=== PATIENT | female | born 1960 | race African-American/Black ===

== ENCOUNTER 2016-12-30 08:54 | Inpatient (IN) | payer BC ==
[2016-12-30 09:50] VITALS: BMI 34.8
--- NOTE | 2016-12-30 10:59 | HP ---
COWS - Scale Resting Pulse: 0= [place] 80 or Below Sweatin= Chills/Flushing Restless Observation: 1= Difficult to Sit Still Pupil Size: 0= Normal to Room Light Bone or Joint Aches: 1= Mild Discomfort Runny Nose/ Eye Tearin= Nasal Congestion GI Upset > 30mins: 2= Nausea/Diarrhea Tremor Observation: 1= Tremor [place], Not Seen Yawning Observation: 1= 1-2x During Session Anxiety or Irritability: 1=Feels Anxious/Irritable Goose Flesh Skin: 0=Smooth Skin COWS Score: 9 CIWA Score - CIWA Score Nausea/Vomitin-Mild Nausea/No Vomiting Muscle Tremors: 3 Anxiety: 4-Mod. Anxious/Guarded Agitation: 1-Slight > Activity Paroxysmal Sweats: 1-Minimal Palms Moist Orientation: 0-Oriented Tacttile Disturbances: 1-Very Mild Itch/Numbness Auditory Disturbances: 1-Very Mild Visual Disturbances: 1-Very Mild Sensitivity Headache: 2-Mild CIWA-Ar Total Score: 15 Admission ROS BHS - HPI Chief Complaint: I want to stop, I'm tired Allergies/Adverse Reactions: Allergies Allergy/AdvReac Type Severity Reaction Status Date / Time lactose Allergy Intermediate Nausea Verified 12/30/16 10:46 History of Present Illness: 56 yo woman here for detox from heroin, cocaine, etoh. Last detox 3 months ago at [facility]. Previously here in 2008. Exam Limitations: Clinical Condition - Ebola screening Have you traveled outside of the country in the last 21 days: No Have you had contact with anyone from an Ebola affected area: No Have you been sick,other than usual withdrawal symptoms: No Do you have a fever: No - Review of Systems Constitutional: Loss of Appetite, Malaise, Night Sweats, Changes in sleep, Weakness EENT: reports: Blurred Vision, Nose Congestion Respiratory: reports: No Symptoms reported Cardiac: reports: No Symptoms Reported GI: reports: Nausea, Poor Appetite, Indigestion, Abdominal cramping : reports: No Symptoms Reported Musculoskeletal: reports: Back Pain, Muscle Pain Integumentary: reports: No Symptoms Reported Neuro: reports: Headache Endocrine: reports: No Symptoms Reported Hematology: reports: No Symptoms Reported Psychiatric: reports: Judgement Intact, Mood/Affect Appropiate, Orientated x3, Anxious Other Systems: Reviewed and Negative Patient History - Patient Medical History Hx Anemia: No Hx Asthma: No Hx Chronic Obstructive Pulmonary Disease (COPD): No Hx Cancer: No Hx Cardiac Disorders: No Hx Hypertension: Yes (no meds) Hx Pacemaker: No HX Cerebrovascular Accident: No Hx Seizures: Yes (1997 ) Hx Diabetes: No Hx Gastrointestinal Disorders: No Hx Liver Disease: No Hx Genitourinary Disorders: No Hx Sexually Transmitted Disorders: No Hx Renal Disease (ESRD): No Hx Thyroid Disease: No Hx Human Immunodeficiency Virus (HIV): No Hx Hepatitis C: No Hx Depression: Yes (never hospitalized, no meds) Hx Suicide Attempt: No Hx Schizophrenia: No - Patient Surgical History Past Surgical History: No Hx Neurologic Surgery: No Hx Cataract Extraction: No Hx Cardiac Surgery: No Hx Lung Surgery: No Hx Breast Surgery: No Hx Breast Biopsy: No Hx Abdominal Surgery: No Hx Appendectomy: No Hx Cholecystectomy: No Hx Genitourinary Surgery: No Hx Section: Yes Hx Orthopedic Surgery: No Anesthesia Reaction: No - PPD History Previous Implant?: Yes Documented Results: Negative w/o proof Implanted On Prior R Admission?: No PPD to be Administered?: Yes - Reproductive History Patient is a Female of Child Bearing Age (11 -55 yrs old): No Patient : No - Smoking Cessation Smoking history: Current every day smoker Have you smoked in the past 12 months: Yes Aproximately how many cigarettes per day: 20 Cigars Per Day: 0 Hx Chewing Tobacco Use: No Initiated information on smoking cessation: Yes 'Breaking Loose' booklet given: 12/30/16 (give on floor) - Substance & Tx. History Hx Alcohol Use: Yes Hx Substance Use: Yes Substance Use Type: Alcohol, Cocaine, Heroin Hx Substance Use Treatment: Yes (detox, rehab, methadone in past) - Substances Abused Heroin Route: Inhalation Frequency: Daily Amount used: 6 BAGS Age of first use: 21 Date of Last Use: 12/30/16 Alcohol Route: Oral Frequency: Daily Amount used: 1 PINT VODKA Age of first use: 21 Date of Last Use: 12/30/16 Crack Route: Smoking Frequency: Daily Amount used: $200 Age of first use: 23 Date of Last Use: 12/30/16 Family Disease History - Family Disease History Family Disease History: Respiratory: Father ( - etoh, drugs), Other: Father, Mother (alive, no medical problems) Admission Physical Exam BHS - Vital Signs Vital Signs: Vital Signs - 24 hr 12/30/16 12/30/16 09:48 09:50 Temperature 97.4 F L 97.7 F Pulse Rate 67 67 Respiratory 20 20 Rate Blood Pressure 170/97 170/97 - Physical General Appearance: Yes: Nourished, Appropriately Dressed, Mild Distress, Anxious HEENTM: Yes: Hearing grossly Normal, Normocephalic, Normal Voice, Pharynx Normal , Nasal Congestion Respiratory: Yes: Normal Breath Sounds, No Respiratory Distress Neck: Yes: No masses,lesions,Nodules, Supple Breast: Yes: Breast Exam Deferred Cardiology: Yes: Regular Rhythm, Regular Rate Abdominal: Yes: Soft, Protuberent Genitourinary: Yes: Within Normal Limits Back: Yes: Normal Inspection Musculoskeletal: Yes: full range of Motion, Gait Steady, Back pain, Muscle Pain Extremities: Yes: Normal Inspection, Normal Range of Motion, Non-Tender Neurological: Yes: Fully Oriented, Alert, Motor Strength 5/5, Normal Mood/Affect , Normal Response Integumentary: Yes: Normal Color, Warm Lymphatic: Yes: Within Normal Limits - Diagnostic (1) Alcohol dependence with uncomplicated withdrawal Current Visit: Yes Status: Chronic (2) Opioid dependence, uncomplicated Current Visit: Yes Status: Chronic (3) Crack cocaine use Current Visit: Yes Status: Chronic (4) Nicotine dependence Current Visit: Yes Status: Chronic Qualifiers: Nicotine product type: cigarettes Substance use status: uncomplicated Qualified Code(s): F17.210 - Nicotine dependence, cigarettes, uncomplicated Cleared for Admission [facility] - Detox or Rehab [facility] Level of Care: Medically Managed Detox Regimen/Protocol: Methadone/Librium [facility] Breath Alcohol Content Breath Alcohol Content: 0 Urine Pregancy Test - Result Urine Test Results: Negative- NO Line Present Urine Drug Screen - Results Drug Screen Negative: No Urine Drug Screen Results: CHIN-Cocaine, OPI-Opiates, BZO-Benzodiazepines, OXY- Oxycodone
[2016-12-30] MEDS ORDERED: MAGNESIUM HYDROX 2400MG/30ML ORAL SUSPENSION 30 ML CUP PO PRN (11:03)
[2016-12-30] MEDS ORDERED: MAGNESIUM CITRATE 300 ML BOTTLE PO PRN (11:03)
[2016-12-30] MEDS ORDERED: chlordiazePOXIDE HCL 25 MG CAPSULE PO PRN (11:03)
[2016-12-30] MEDS ORDERED: MAG HYDROX/AL HYDROX/SIMETH 30 ML UNIT-DOSE CUP PO PRN (11:03)
[2016-12-30] MEDS ORDERED: ACETAMINOPHEN 325 MG TABLET (FP) PO PRN (11:03)
[2016-12-30] MEDS ORDERED: guaiFENesin/D-METHORPHAN HB 10 ML UNIT-DOSE CUPS PO PRN (11:03)
[2016-12-30] MEDS ORDERED: MENTHOL/PHENOL 1 EACH UD MM PRN (11:03)
[2016-12-30] MEDS ORDERED: P-EPHED 60MG/TRIPROLIDI 2.5MG TABLET PO PRN (11:03)
[2016-12-30] MEDS ORDERED: LOPERAMIDE HCL 2 MG CAPSULE PO PRN (11:03)
[2016-12-30] MEDS ORDERED: METHADONE HCL 10 MG TABLET (FOR DETOX USE ONLY) PO ONE ×2 (11:45→23:00)
[2016-12-30] MEDS ORDERED: chlordiazePOXIDE HCL 25 MG CAPSULE PO ONE (11:45)
[2016-12-30] MEDS: NICOTINE 21 MG/24 HOURS TOPICAL PATCH TD SCH (13:02)
[2016-12-30 13:21] LABS: URINE APPEARANCE CLOUDY; URINE BILIRUBIN NEGATIVE (NEGATIVE); URINE BLOOD 1+ (NEGATIVE); URINE COLOR DKYELLOW; URINE GLUCOSE (UA) NEGATIVE (NEGATIVE); URINE KETONE NEGATIVE (NEGATIVE); URINE LEUK ESTERASE 3+ (NEGATIVE); URINE NITRITE POSITIVE (NEGATIVE); URINE PROTEIN 1+ (NEGATIVE); URINE UROBILINOGEN NEGATIVE E.U./dl (0.2-1.0)
[2016-12-30 13:29] LABS: CALCIUM OXALATE CRYSTALS MANY /hpf (NONE SEEN); URINE BACTERIA MODERATE /hpf (NONE SEEN); URINE HYALINE CAST 13 /lpf; URINE MUCUS MODERATE; URINE RBC 44 /hpf (0-3); URINE WBC 66 /hpf (3-5)
--- NOTE | 2016-12-30 14:04 | CONSULT ---
[facility] Psychiatric Consult - Data Date of interview: 12/30/16 Admission source: [facility] Identifying data: Readmission to [facility] for this 56 y/o AA female seeking detox treatment on for alcohol,heroin and cocaine (crack) dependence.Patient is ,a mother of two,domiciled,unemployed and supported on SSI benefits. Substance Abuse History: - Smoking Cessation. Smoking history: Current every day smoker. Have you smoked in the past 12 months: Yes. Aproximately how many cigarettes per day: 20. Cigars Per Day: 0. Hx Chewing Tobacco Use: No. Initiated information on smoking cessation: Yes. 'Breaking Loose' booklet given : 12/30/16 (give on floor). - Substance & Tx. History. Hx Alcohol Use: Yes. Hx Substance Use: Yes. Substance Use Type: Alcohol, Cocaine, Heroin. Hx Substance Use Treatment: Yes (detox, rehab, methadone in past). - Substances Abused. Heroin. Route: Inhalation. Frequency: Daily. Amount used: 6 BAGS. Age of first use: 21. Date of Last Use: 12/30/16. Alcohol. Route: Oral. Frequency: Daily. Amount used: 1 PINT VODKA. Age of first use: 21. Date of Last Use: 12/30/16. Crack. Route: Smoking. Frequency: Daily. Amount used: $200. Age of first use: 23. Date of Last Use: 12/30/16. Confirmed by patient. Medical History: Hypertension and a remote history of seizure disorder (1997). Psychiatric History: Patient denies history of psychiatric hospitalizations.Ms Noland denies having a mental illness.However,review of pharmacy claims reveals filled scripts for [facility] on 08/2016.Patient denies history of suicide attempts. Physical/Sexual Abuse/Trauma History: Not discussed.Patient is moderately sedated. Additional Comment: Urine Drug Screen Results: CHIN-Cocaine, OPI-Opiates, BZO- Benzodiazepines, OXY-Oxycodone.Noted. Mental Status Exam - Mental Status Exam Alert and Oriented to: Time, Place, Person Cognitive Function: Grossly Intact Patient Appearance: Well Groomed Mood: Withdrawn Affect: Constricted Patient Behavior: Sedated (moderately sedated but able to answer simple questions), Fatigued Speech Pattern: Clear Voice Loudness: Normal Thought Process: Goal Oriented Thought Disorder: Not Present Hallucinations: Denies Suicidal Ideation: Denies Homicidal Ideation: Denies Insight/Judgement: Poor Sleep: Fair (self-report) Appetite: Good Muscle strength/Tone: Normal Gait/Station: Normal Psychiatric Findings - Problem List ([place] 1, 2,3) (1) Alcohol dependence with uncomplicated withdrawal Current Visit: Yes Status: Acute (2) Opioid dependence, uncomplicated Current Visit: Yes Status: Acute (3) Nicotine dependence Current Visit: Yes Status: Acute Qualifiers: Nicotine product type: cigarettes Substance use status: uncomplicated Qualified Code(s): F17.210 - Nicotine dependence, cigarettes, uncomplicated (4) Cocaine dependence Current Visit: Yes Status: Acute - Initial Treatment Plan Initial Treatment Plan: Psychoeducation.Detoxification.Observation.
--- NOTE | 2016-12-30 14:59 | EKG ---
Test Reason : Blood Pressure : / mmHG Vent. Rate : 061 BPM Atrial Rate : 061 BPM P-R Int : 152 ms QRS Dur : 082 ms QT Int : 436 ms P-R-T Axes : 030 020 -03 degrees QTc Int : 438 ms NORMAL SINUS RHYTHM NONSPECIFIC ST AND T WAVE ABNORMALITY ABNORMAL ECG NO PREVIOUS ECGS AVAILABLE Confirmed by RICHA RODRIGUEZ MD ([id number]) on 12/30/2016 2:59:08 PM Referred By: Confirmed By:RICHA RODRIGUEZ MD
[2016-12-30] MEDS: chlordiazePOXIDE HCL 25 MG CAPSULE PO SCH ×2 (17:40→22:34)
[2016-12-30] MEDS: THIAMINE HCL 100 MG TABLET (FP) PO SCH (22:34)
[2016-12-30] MEDS: diphenhydrAMINE HCL 50 MG CAPSULE PO PRN (22:36)
[2016-12-31] MEDS: chlordiazePOXIDE HCL 25 MG CAPSULE PO SCH ×4 (05:45→22:24)
[2016-12-31] MEDS ORDERED: METHADONE HCL 10 MG TABLET (FOR DETOX USE ONLY) PO SCH (10:00)
[2016-12-31] MEDS: PRENATAL VITAMINS W/ FOLIC ACID TABLET (FP) PO SCH (10:12)
[2016-12-31] MEDS: NICOTINE 21 MG/24 HOURS TOPICAL PATCH TD SCH (10:12)
[2016-12-31] MEDS: NICOTINE POLACRILEX 4 MG GUM BUC PRN (10:16)
[2016-12-31 11:31] LABS: ALBUMIN 3.4 g/dl (3.4-5.0); BILIRUBIN,TOTAL 0.3 mg/dL (0.2-1.0); CALCIUM 8.9 mg/dL (8.5-10.1); CREATININE 1.2 mg/dL (0.55-1.02); TOT PROT 6.7 g/dl (6.4-8.2)
[2016-12-31 11:42] LABS: MCHC 32.9 g/dl (32.0-36.0); MEAN CELL VOLUME 88.1 fl (80-96); PLATELET COUNT 202 K/MM3 (134-434); WHITE BLOOD COUNT 7.6 K/mm3 (4.0-10.0)
[2016-12-31 11:45] LABS: HIV 1 & 2 AB NEGATIVE; HIV 1 AGp24 NEGATIVE
[2016-12-31] MEDS ORDERED: PNEUMOCOCCAL 23 VACCINE 0.5 ML VIAL IM ONE (12:00)
[2016-12-31] MEDS ORDERED: INFLUENZA VACCINE 45 MCG/0.5 ML (MDV 16-17) IM ONE (12:00)
[2016-12-31] MEDS ORDERED: PNEUMOC 13-VAL CONJ-DIP CRM/PF 0.5 ML DISP.SYRIN IM ONE (12:00)
--- NOTE | 2016-12-31 12:08 | PN ---
[facility] CIWA - CIWA Score Nausea/Vomitin Muscle Tremors: 3 Anxiety: 3 Agitation: 2 Paroxysmal Sweats: 1-Minimal Palms Moist Orientation: 0-Oriented Tacttile Disturbances: 1-Very Mild Itch/Numbness Auditory Disturbances: 1-Very Mild Visual Disturbances: 1-Very Mild Sensitivity Headache: 2-Mild CIWA-Ar Total Score: 17 BHS COWS - Scale Resting Pulse: 0= [place] 80 or Below Sweatin= Chills/Flushing Restless Observation: 3= Extraneous Movement Pupil Size: 1= Pupils >than Normal Bone or Joint Aches: 2= Severe Diffuse Aches Runny Nose/ Eye Tearin= Runny Nose/Eyes GI Upset > 30mins: 3= Vomiting/Diarrhea Tremor Observation of Outstretched Hands: 2= Slight Tremor Visible Yawning Observation: 1= 1-2x During Session Anxiety or Irritability: 2=Irritable/Anxious Goose Flesh Skin: 0=Smooth Skin COWS Score: [address] [facility] Progress Note (SOAP) Subjective: ALERT,IRRITABLE,ANXIOUS,INTERRUPTED SLEEP,TREMOR,PAIN IN THE BODY AND BACK Objective: 12/31/16 12:05 Vital Signs Temperature 98.1 F 12/31/16 10:00 Pulse Rate 79 12/31/16 10:00 Respiratory Rate 18 12/31/16 10:00 Blood Pressure 154/73 12/31/16 10:00 O2 Sat by Pulse Oximetry (%) EKG NSR INVERTED T IN 2,3,AVF NO CHEST PAIN,NO SOB,NO DIZZINESS Laboratory Last Values WBC 7.6 K/mm3 (4.0-10.0) 12/31/16 08:00 RBC 4.12 M/mm3 (3.60-5.2) 12/31/16 08:00 Hgb 11.9 GM/dL (10.7-15.3) 12/31/16 08:00 Hct 36.3 % (32.4-45.2) 12/31/16 08:00 MCV 88.1 fl (80-96) 12/31/16 08:00 MCHC 32.9 g/dl (32.0-36.0) 12/31/16 08:00 RDW 15.0 % (11.6-15.6) 12/31/16 08:00 Plt Count 202 K/MM3 (134-434) 12/31/16 08:00 MPV 10.0 fl (7.5-11.1) 12/31/16 08:00 Sodium 143 mmol/L (136-145) 12/31/16 08:00 Potassium 3.8 mmol/L (3.5-5.1) 12/31/16 08:00 Chloride 109 mmol/L (98-107) H 12/31/16 08:00 Carbon Dioxide 27 mmol/L (21-32) 12/31/16 08:00 Anion Gap 7 (8-16) L 12/31/16 08:00 BUN 18 mg/dL (7-18) 12/31/16 08:00 Creatinine 1.2 mg/dL (0.55-1.02) H 12/31/16 08:00 Creat Clearance w eGFR 46.47 (>60) 12/31/16 08:00 Random Glucose 104 mg/dL (74-106) 12/31/16 08:00 Calcium 8.9 mg/dL (8.5-10.1) 12/31/16 08:00 Total Bilirubin 0.3 mg/dL (0.2-1.0) 12/31/16 08:00 AST 17 U/L (15-37) 12/31/16 08:00 ALT 12 U/L (12-78) 12/31/16 08:00 Alkaline Phosphatase 73 U/L (45-117) 12/31/16 08:00 Total Protein 6.7 g/dl (6.4-8.2) 12/31/16 08:00 Albumin 3.4 g/dl (3.4-5.0) 12/31/16 08:00 Urine Color Dkyellow 12/30/16 11:00 Urine Appearance Cloudy 12/30/16 11:00 Urine pH 5.0 (5.0-8.0) 12/30/16 11:00 Ur Specific [place] 1.026 (1.001-1.035) 12/30/16 11:00 Urine Protein 1+ (NEGATIVE) H 12/30/16 11:00 Urine Glucose (UA) Negative (NEGATIVE) 12/30/16 11:00 Urine Ketones Negative (NEGATIVE) 12/30/16 11:00 Urine Blood 1+ (NEGATIVE) H 12/30/16 11:00 Urine Nitrite Positive (NEGATIVE) 12/30/16 11:00 Urine Bilirubin Negative (NEGATIVE) 12/30/16 11:00 Urine Urobilinogen Negative E.U./dl (0.2-1.0) 12/30/16 11:00 Ur Leukocyte Esterase 3+ (NEGATIVE) H 12/30/16 11:00 Urine RBC 44 /hpf (0-3) 12/30/16 11:00 Urine WBC 66 /hpf (3-5) 12/30/16 11:00 Ur Epithelial Cells Moderate /hpf (FEW) 12/30/16 11:00 Calcium Oxalate Crystal Many /hpf (NONE SEEN) 12/30/16 11:00 Urine Bacteria Moderate /hpf (NONE SEEN) 12/30/16 11:00 Hyaline Casts 13 /lpf 12/30/16 11:00 Urine Mucus Moderate 12/30/16 11:00 RPR Titer Nonreactive (NONREACTIVE) 12/31/16 08:00 HIV 1&2 Antibody Screen Negative 12/31/16 08:00 HIV P24 Antigen Negative 12/31/16 08:00 Assessment: 12/31/16 12:07 WITHDRAWAL SYMPTOM Plan: CONTINUE DETOX,ENCOURAGE ORAL FLUID,REPEAT UA
[2016-12-31] MEDS: THIAMINE HCL 100 MG TABLET (FP) PO SCH (22:24)
[2016-12-31] MEDS: diphenhydrAMINE HCL 50 MG CAPSULE PO PRN (22:24)
--- NOTE | 2017-01-01 04:21 | PN ---
[facility] Progress Note Note: ASKED TO SEE CLIENT SHE WAS FOUND ON FLOOR ON HER KNEES AT BEDSIDE. CLIENT REPORTS SLIDING OFF HER BED WHEN THE MATTRESS MOVED. C/O L THIGH SORENESS THAT HAS BEEN RELIEVED AFTER TAKING MOTRIN. DENIES LOC, HEAD TRAUMA, SOB, C.P O- Vital Signs - 24 hr 12/31/16 12/31/16 12/31/16 10:00 14:52 18:05 Temperature 98.1 F 97.7 F 97.3 F L Pulse Rate 79 75 78 Respiratory 18 18 18 Rate Blood Pressure 154/73 143/77 151/62 12/31/16 01/01/17 01/01/17 23:12 03:15 03:30 Temperature 95.9 F L 98.4 F 98.4 F Pulse Rate 72 96 H 96 H Respiratory 18 20 20 Rate Blood Pressure 142/67 137/95 137/95 AWAKE ALERT LYING IN BE NAD A/O X3 SKIN NO VISIBLE INJURIES EXTREMITIES - FROM W/O LIMITATIONS X4 A- S/P FALL P- FALL PRECAUTION/ PROTOCOL MOTRIN/TYLENOL FOR PAIN ORDERED MONITOR FOR DELAYED INJURIES
[2017-01-01] MEDS: IBUPROFEN 400 MG TABLET (FP) PO PRN (04:34)
[2017-01-01] MEDS: chlordiazePOXIDE HCL 25 MG CAPSULE PO SCH ×2 (05:53→10:52)
[2017-01-01] MEDS: PRENATAL VITAMINS W/ FOLIC ACID TABLET (FP) PO SCH (10:48)
[2017-01-01] MEDS: NICOTINE 21 MG/24 HOURS TOPICAL PATCH TD SCH (10:48)
[2017-01-01] MEDS: METHADONE HCL 5 MG TABLET (FOR DETOX USE ONLY) PO SCH (10:49)
--- NOTE | 2017-01-01 10:52 | PN ---
[facility] CIWA - CIWA Score Nausea/Vomitin-No Nausea/No Vomiting Muscle Tremors: 3 Anxiety: 4-Mod. Anxious/Guarded Agitation: 3 Paroxysmal Sweats: 3 Orientation: 0-Oriented Tacttile Disturbances: 0-None Auditory Disturbances: 0-None Visual Disturbances: 0-None Headache: 0-None Present CIWA-Ar Total Score: 13 BHS COWS - Scale Resting Pulse: 1= [place] 81-100 Sweatin= Chills/Flushing Restless Observation: 0= Sits Still Pupil Size: 0= Normal to Room Light Bone or Joint Aches: 2= Severe Diffuse Aches Runny Nose/ Eye Tearin= Nasal Congestion GI Upset > 30mins: 2= Nausea/Diarrhea Tremor Observation of Outstretched Hands: 2= Slight Tremor Visible Yawning Observation: 2= >3x During Session Anxiety or Irritability: 2=Irritable/Anxious Goose Flesh Skin: 0=Smooth Skin COWS Score: 13 S Progress Note (SOAP) Subjective: sweats tired interrupted sleep Objective: 01/01/17 10:49 Vital Signs Temperature 97.7 F 01/01/17 09:55 Pulse Rate 95 H 01/01/17 09:55 Respiratory Rate 18 01/01/17 09:55 Blood Pressure 127/83 01/01/17 09:55 O2 Sat by Pulse Oximetry (%) Laboratory Tests 12/30/16 12/31/16 12/31/16 11:00 08:00 08:00 WBC 7.6 RBC 4.12 Hgb 11.9 Hct 36.3 MCV 88.1 MCHC 32.9 RDW 15.0 Plt Count 202 MPV 10.0 Sodium Potassium Chloride Carbon Dioxide Anion Gap BUN Creatinine Creat Clearance w eGFR Random Glucose Calcium Total Bilirubin AST ALT Alkaline Phosphatase Total Protein Albumin Urine Color Dkyellow Urine Appearance Cloudy Urine pH 5.0 Ur Specific [place] 1.026 Urine Protein 1+ H Urine Glucose (UA) Negative Urine Ketones Negative Urine Blood 1+ H Urine Nitrite Positive Urine Bilirubin Negative Urine Urobilinogen Negative Ur Leukocyte Esterase 3+ H Urine RBC 44 Urine WBC 66 Ur Epithelial Cells Moderate Calcium Oxalate Crystal Many Urine Bacteria Moderate Hyaline Casts 13 Urine Mucus Moderate RPR Titer HIV 1&2 Antibody Screen Negative HIV P24 Antigen Negative 12/31/16 12/31/16 08:00 08:00 WBC RBC Hgb Hct MCV MCHC RDW Plt Count MPV Sodium 143 Potassium 3.8 Chloride 109 H Carbon Dioxide 27 Anion Gap 7 L BUN 18 Creatinine 1.2 H Creat Clearance w eGFR 46.47 Random Glucose 104 Calcium 8.9 Total Bilirubin 0.3 AST 17 ALT 12 Alkaline Phosphatase 73 Total Protein 6.7 Albumin 3.4 Urine Color Urine Appearance Urine pH Ur Specific [place] Urine Protein Urine Glucose (UA) Urine Ketones Urine Blood Urine Nitrite Urine Bilirubin Urine Urobilinogen Ur Leukocyte Esterase Urine RBC Urine WBC Ur Epithelial Cells Calcium Oxalate Crystal Urine Bacteria Hyaline Casts Urine Mucus RPR Titer Nonreactive HIV 1&2 Antibody Screen HIV P24 Antigen awake/alert ambulating no acute distress Assessment: 01/01/17 10:51 withdrawal sx Plan: continue detox increase fluids
[2017-01-01] MEDS: LEVOFLOXACIN 250 MG TABLET (FP) PO SCH (14:18)
[2017-01-01] MEDS: chlordiazePOXIDE 5 MG CAPSULE PO SCH ×2 (17:47→22:32)
[2017-01-01] MEDS: NICOTINE POLACRILEX 4 MG GUM BUC PRN (19:29)
[2017-01-01] MEDS: THIAMINE HCL 100 MG TABLET (FP) PO SCH (22:32)
[2017-01-01] MEDS: diphenhydrAMINE HCL 50 MG CAPSULE PO PRN (22:33)
[2017-01-02] MEDS: diphenhydrAMINE HCL 50 MG CAPSULE PO PRN (00:37)
[2017-01-02] MEDS: LEVOFLOXACIN 250 MG TABLET (FP) PO SCH (05:36)
[2017-01-02] MEDS: chlordiazePOXIDE 5 MG CAPSULE PO SCH ×2 (05:36→11:07)
--- NOTE | 2017-01-02 10:49 | PN ---
[facility] Progress Note (SOAP) Subjective: interrupted sleep, sweats, nausea , left leg pain Objective: 01/02/17 10:48 Vital Signs Temperature 97.9 F 01/02/17 10:20 Pulse Rate 99 H 01/02/17 10:20 Respiratory Rate 18 01/02/17 10:20 Blood Pressure 147/60 01/02/17 10:20 O2 Sat by Pulse Oximetry (%) Laboratory Tests 12/30/16 12/31/16 12/31/16 11:00 08:00 08:00 WBC RBC Hgb Hct MCV MCHC RDW Plt Count MPV Sodium Potassium Chloride Carbon Dioxide Anion Gap BUN Creatinine Creat Clearance w eGFR Random Glucose Calcium Total Bilirubin AST ALT Alkaline Phosphatase Total Protein Albumin Urine Color Dkyellow Urine Appearance Cloudy Urine pH 5.0 Ur Specific [place] 1.026 Urine Protein 1+ H Urine Glucose (UA) Negative Urine Ketones Negative Urine Blood 1+ H Urine Nitrite Positive Urine Bilirubin Negative Urine Urobilinogen Negative Ur Leukocyte Esterase 3+ H Urine RBC 44 Urine WBC 66 Ur Epithelial Cells Moderate Calcium Oxalate Crystal Many Urine Bacteria Moderate Hyaline Casts 13 Urine Mucus Moderate RPR Titer Hepatitis C Antibody 0.2 HIV 1&2 Antibody Screen Negative HIV P24 Antigen Negative 12/31/16 12/31/16 12/31/16 08:00 08:00 08:00 WBC 7.6 RBC 4.12 Hgb 11.9 Hct 36.3 MCV 88.1 MCHC 32.9 RDW 15.0 Plt Count 202 MPV 10.0 Sodium 143 Potassium 3.8 Chloride 109 H Carbon Dioxide 27 Anion Gap 7 L BUN 18 Creatinine 1.2 H Creat Clearance w eGFR 46.47 Random Glucose 104 Calcium 8.9 Total Bilirubin 0.3 AST 17 ALT 12 Alkaline Phosphatase 73 Total Protein 6.7 Albumin 3.4 Urine Color Urine Appearance Urine pH Ur Specific [place] Urine Protein Urine Glucose (UA) Urine Ketones Urine Blood Urine Nitrite Urine Bilirubin Urine Urobilinogen Ur Leukocyte Esterase Urine RBC Urine WBC Ur Epithelial Cells Calcium Oxalate Crystal Urine Bacteria Hyaline Casts Urine Mucus RPR Titer Nonreactive Hepatitis C Antibody HIV 1&2 Antibody Screen HIV P24 Antigen pt aox3 in nad ambulating Assessment: 01/02/17 10:48 withdrawal sx's uti Plan: cont, detox increase fluids lidocaine patch /d motrin prn
[2017-01-02] MEDS: PRENATAL VITAMINS W/ FOLIC ACID TABLET (FP) PO SCH (11:07)
[2017-01-02] MEDS: METHADONE HCL 5 MG TABLET (FOR DETOX USE ONLY) PO SCH (11:07)
[2017-01-02] MEDS: LIDOCAINE 5% TOPICAL PATCH TP SCH (11:08)
[2017-01-02] MEDS: NICOTINE 21 MG/24 HOURS TOPICAL PATCH TD SCH (11:09)
[2017-01-02] MEDS: hydrOXYzine PAMOATE 50 MG CAPSULE (FP) PO PRN ×2 (12:21→22:24)
[2017-01-02] MEDS: chlordiazePOXIDE HCL 10 MG CAPSULE PO SCH ×2 (17:47→22:22)
[2017-01-02] MEDS: THIAMINE HCL 100 MG TABLET (FP) PO SCH (22:22)
[2017-01-03] MEDS: diphenhydrAMINE HCL 50 MG CAPSULE PO PRN ×2 (00:26→22:38)
[2017-01-03] MEDS: LEVOFLOXACIN 250 MG TABLET (FP) PO SCH (05:34)
[2017-01-03] MEDS: chlordiazePOXIDE HCL 10 MG CAPSULE PO SCH ×2 (05:34→10:52)
[2017-01-03] MEDS ORDERED: METHADONE HCL 10 MG TABLET (FOR DETOX USE ONLY) PO SCH (10:00)
--- NOTE | 2017-01-03 10:37 | PN ---
[facility] Progress Note (SOAP) Subjective: leg pain sweats interrupted sleep Objective: 01/03/17 10:36 Vital Signs Temperature 97.7 F 01/03/17 10:12 Pulse Rate 101 H 01/03/17 10:12 Respiratory Rate 20 01/03/17 10:12 Blood Pressure 134/85 01/03/17 10:12 O2 Sat by Pulse Oximetry (%) awake/alert ambulating no acute distress Assessment: 01/03/17 10:36 withdrawal sx Plan: continue detox lidocaine patch analgesic balm motrin/tylenol prn d/c in am
[2017-01-03] MEDS: PRENATAL VITAMINS W/ FOLIC ACID TABLET (FP) PO SCH (10:46)
[2017-01-03] MEDS: LIDOCAINE 5% TOPICAL PATCH TP SCH (10:47)
[2017-01-03] MEDS: NICOTINE 21 MG/24 HOURS TOPICAL PATCH TD SCH (10:48)
[2017-01-03] MEDS: IBUPROFEN 400 MG TABLET (FP) PO PRN (13:25)
[2017-01-03] MEDS: THIAMINE HCL 100 MG TABLET (FP) PO SCH (22:38)
[2017-01-04] MEDS ORDERED: METHADONE HCL 5 MG TABLET (FOR DETOX USE ONLY) PO SCH (06:00)
[2017-01-04] MEDS: LEVOFLOXACIN 250 MG TABLET (FP) PO SCH (06:09)
[2017-01-04 07:20] VITALS: BP 148/73; PULSE 88; TEMP 97.2
--- NOTE | 2017-01-04 10:07 | DS ---
[facility] Detox Discharge Summary Admission Date: 12/30/16 Discharge Date: 01/04/17 - History Present History: Alcohol Dependence, Cocaine Dependence, Opioid Dependence - Physical Exam Results Vital Signs: Vital Signs Temperature 97.2 F L 01/04/17 07:18 Pulse Rate 88 01/04/17 07:18 Respiratory Rate 18 01/04/17 07:18 Blood Pressure 148/73 01/04/17 07:18 O2 Sat by Pulse Oximetry (%) - Treatment Hospital Course: Detox Protocol Followed, Detoxed Safely, Responded well, Discharged Condition Good - Medication Discharge Medications: Ambulatory Orders NK [No Known Home Medication] 12/30/16 - Diagnosis (1) Alcohol dependence with uncomplicated withdrawal Current Visit: Yes Status: Chronic (2) Cocaine dependence Current Visit: Yes Status: Chronic Qualifiers: Substance use status: uncomplicated Qualified Code(s): F14.20 - Cocaine dependence, uncomplicated (3) Nicotine dependence Current Visit: Yes Status: Chronic Qualifiers: Nicotine product type: cigarettes Substance use status: uncomplicated Qualified Code(s): F17.210 - Nicotine dependence, cigarettes, uncomplicated (4) Opioid dependence, uncomplicated Current Visit: Yes Status: Chronic - AMA Did Patient Leave Against Medical Advice: No
[2017-01-04 15:02] LABS: URINE APPEARANCE CLEAR; URINE BILIRUBIN NEGATIVE (NEGATIVE); URINE BLOOD NEGATIVE (NEGATIVE); URINE COLOR STRAW; URINE GLUCOSE (UA) NEGATIVE (NEGATIVE); URINE KETONE NEGATIVE (NEGATIVE); URINE NITRITE NEGATIVE (NEGATIVE); URINE PROTEIN NEGATIVE (NEGATIVE); URINE UROBILINOGEN NEGATIVE E.U./dl (0.2-1.0)
[2017-01-04 15:11] LABS: URINE LEUK ESTERASE 1+ (NEGATIVE)
[2017-01-04 15:26] LABS: URINE MUCUS RARE; URINE RBC 2 /hpf (0-3); URINE WBC 1 /hpf (3-5)
== END 2017-01-04 09:55 | disposition home or self-care (01) | DRG 773 ==
LOC: YASAS 08:54 → Y6N 10:47
PROVIDERS: ADMIT Internal Medicine; ATTEND Internal Medicine Addiction Medicine
PROC: HZ2ZZZZ Detoxification Services for Substance Abuse Treatment (ICD-10-PCS; principal; 2017-01-04)
DX: F11.20 Opioid dependence, uncomplicated (principal); F10.20 Alcohol dependence, uncomplicated; F14.20 Cocaine dependence, uncomplicated; F17.213 Nicotine dependence, cigarettes, with withdrawal
CPT/HCPCS: 36415; 80053; 81003; 81015; 85027; 86593; 87389; 90732; 93005; 93010; G0009

== ENCOUNTER 2017-02-25 13:38 | Inpatient (IN) | payer BC ==
[2017-02-25 14:08] VITALS: BMI 35.5
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
[2017-02-25] MEDS ORDERED: METHADONE HCL 10 MG TABLET (FOR DETOX USE ONLY) PO ONE ×2 (15:53→23:00)
[2017-02-25] MEDS ORDERED: ACETAMINOPHEN 325 MG TABLET (FP) PO PRN (15:53)
[2017-02-25] MEDS ORDERED: P-EPHED 60MG/TRIPROLIDI 2.5MG TABLET PO PRN (15:53)
[2017-02-25] MEDS ORDERED: chlordiazePOXIDE HCL 25 MG CAPSULE PO PRN (15:53)
[2017-02-25] MEDS ORDERED: IBUPROFEN 400 MG TABLET (FP) PO PRN (15:53)
[2017-02-25] MEDS ORDERED: chlordiazePOXIDE HCL 25 MG CAPSULE PO ONE (15:53)
[2017-02-25] MEDS ORDERED: guaiFENesin/D-METHORPHAN HB 10 ML UNIT-DOSE CUPS PO PRN (15:53)
[2017-02-25] MEDS ORDERED: LOPERAMIDE HCL 2 MG CAPSULE PO PRN (15:53)
[2017-02-25] MEDS ORDERED: NICOTINE POLACRILEX 2 MG GUM BC PRN (15:53)
[2017-02-25] MEDS ORDERED: MENTHOL/PHENOL 1 EACH UD MM PRN (15:53)
[2017-02-25] MEDS ORDERED: COLLOIDAL OATMEAL 1 BAR EACH TP PRN (15:57)
[2017-02-25] MEDS ORDERED: ALBUTEROL SO4 6.7 GM HFA INHALER IH PRN (15:58)
[2017-02-25] MEDS: NICOTINE 21 MG/24 HOURS TOPICAL PATCH TD SCH (16:45)
[2017-02-25] MEDS: chlordiazePOXIDE HCL 25 MG CAPSULE PO SCH ×2 (17:39→22:15)
[2017-02-25 18:16] LABS: URINE APPEARANCE SLCLOUDY; URINE BILIRUBIN NEGATIVE (NEGATIVE); URINE COLOR LTYELLOW; URINE GLUCOSE (UA) NEGATIVE (NEGATIVE); URINE KETONE NEGATIVE (NEGATIVE); URINE NITRITE NEGATIVE (NEGATIVE); URINE PROTEIN NEGATIVE (NEGATIVE); URINE UROBILINOGEN NEGATIVE E.U./dl (0.2-1.0)
[2017-02-25 18:21] LABS: URINE BLOOD 1+ (NEGATIVE); URINE LEUK ESTERASE 3+ (NEGATIVE)
[2017-02-25 18:23] LABS: URINE BACTERIA RARE /hpf (NONE SEEN); URINE MUCUS RARE; URINE RBC 5 /hpf (0-3); URINE WBC 2 /hpf (3-5)
[2017-02-25] MEDS: diphenhydrAMINE HCL 50 MG CAPSULE PO PRN (22:15)
[2017-02-25] MEDS: THIAMINE HCL 100 MG TABLET (FP) PO SCH (22:15)
[2017-02-25] MEDS: MICONAZOLE NITRATE 2% VAGINAL CREAM 45 GM TUBE VG SCH (22:16)
[2017-02-26] MEDS: chlordiazePOXIDE HCL 25 MG CAPSULE PO SCH ×4 (05:45→22:04)
--- NOTE | 2017-02-26 08:58 | EKG ---
Test Reason : Blood Pressure : / mmHG Vent. Rate : 060 BPM Atrial Rate : 060 BPM P-R Int : 178 ms QRS Dur : 084 ms QT Int : 450 ms P-R-T Axes : 053 026 027 degrees QTc Int : 450 ms NORMAL SINUS RHYTHM NONSPECIFIC T WAVE ABNORMALITY ABNORMAL ECG WHEN COMPARED WITH ECG OF 30-DEC-2016 13:17, NONSPECIFIC T WAVE ABNORMALITY, WORSE IN ANTEROLATERAL LEADS Confirmed by MUNA PRINGLE, NATHAN ([id number]) on 02/26/2017 8:58:10 AM Referred By: Confirmed By:NATHAN TORO MD
[2017-02-26 09:59] LABS: MCH 28.9 pg (25.7-33.7); MCHC 32.4 g/dl (32.0-36.0); MEAN CELL VOLUME 89.1 fl (80-96); MEAN PLT VOLUME 9.3 fl (7.5-11.1); PLATELET COUNT 186 K/MM3 (134-434); RDW 15.7 % (11.6-15.6); WHITE BLOOD COUNT 4.9 K/mm3 (4.0-10.0)
[2017-02-26] MEDS ORDERED: METHADONE HCL 10 MG TABLET (FOR DETOX USE ONLY) PO SCH (10:00)
[2017-02-26] MEDS: PRENATAL VITAMINS W/ FOLIC ACID TABLET (FP) PO SCH (10:21)
[2017-02-26] MEDS: NICOTINE 21 MG/24 HOURS TOPICAL PATCH TD SCH (10:22)
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
[2017-02-26 10:31] LABS: BILIRUBIN,TOTAL 0.5 mg/dL (0.2-1.0); CALCIUM 8.3 mg/dL (8.5-10.1); COCKROFT - GAULT 82.45; CREATININE 1.2 mg/dL (0.55-1.02); TOT PROT 5.7 g/dl (6.4-8.2)
--- NOTE | 2017-02-26 10:48 | PN ---
[facility] CIWA - CIWA Score Nausea/Vomitin-No Nausea/No Vomiting Muscle Tremors: 4-Moderate,w/Arms Extend Anxiety: 3 Agitation: 4-Moderately Restless Paroxysmal Sweats: 3 Orientation: 0-Oriented Tacttile Disturbances: 0-None Auditory Disturbances: 0-None Visual Disturbances: 0-None Headache: 1-Very Mild CIWA-Ar Total Score: 15 BHS COWS - Scale Resting Pulse: 0= [place] 80 or Below Sweatin=Flushed/Facial Moisture Restless Observation: 1= Difficult to Sit Still Pupil Size: 0= Normal to Room Light Bone or Joint Aches: 2= Severe Diffuse Aches Runny Nose/ Eye Tearin= Runny Nose/Eyes GI Upset > 30mins: 0= None Tremor Observation of Outstretched Hands: 2= Slight Tremor Visible Yawning Observation: 2= >3x During Session Anxiety or Irritability: 2=Irritable/Anxious Goose Flesh Skin: 3=Piloerection COWS Score: 16 [facility] Progress Note (SOAP) Subjective: sweats tired headache body aches shakes vaginal discharge with odor Objective: 02/26/17 10:47 Vital Signs Temperature 97.9 F 02/26/17 09:59 Pulse Rate 66 02/26/17 09:59 Respiratory Rate 18 02/26/17 09:59 Blood Pressure 159/69 02/26/17 09:59 O2 Sat by Pulse Oximetry (%) Laboratory Tests 02/25/17 02/26/17 02/26/17 18:00 07:00 07:00 WBC 4.9 D RBC 3.62 Hgb 10.5 L D Hct 32.2 L MCV 89.1 MCHC 32.4 RDW 15.7 H Plt Count 186 MPV 9.3 Sodium 143 Potassium 4.2 Chloride 108 H Carbon Dioxide 28 Anion Gap 7 L BUN 19 H Creatinine 1.2 H Creat Clearance w eGFR 46.47 Random Glucose 114 H Calcium 8.3 L Total Bilirubin 0.5 D AST 14 L ALT 14 Alkaline Phosphatase 63 Total Protein 5.7 L Albumin 3.0 L Urine Color Ltyellow Urine Appearance Slcloudy Urine pH 5.0 Ur Specific [place] 1.010 Urine Protein Negative Urine Glucose (UA) Negative Urine Ketones Negative Urine Blood 1+ H Urine Nitrite Negative Urine Bilirubin Negative Urine Urobilinogen Negative Ur Leukocyte Esterase 3+ H D Urine RBC 5 Urine WBC 2 Ur Epithelial Cells Rare Urine Bacteria Rare Urine Mucus Rare awake/alert ambulating no acute distress Assessment: 02/26/17 10:47 withdrawal sx Plan: continue detox increase fluids flagly
[2017-02-26] MEDS: metroNIDAZOLE 250 MG TABLET PO SCH ×2 (13:01→22:06)
[2017-02-26] MEDS ORDERED: FLUCONAZOLE 50 MG TABLET PO ONE (16:30)
[2017-02-26] MEDS: diphenhydrAMINE HCL 50 MG CAPSULE PO PRN (22:04)
[2017-02-26] MEDS: THIAMINE HCL 100 MG TABLET (FP) PO SCH (22:06)
[2017-02-26] MEDS: MICONAZOLE NITRATE 2% VAGINAL CREAM 45 GM TUBE VG SCH (23:34)
[2017-02-27] MEDS: hydrOXYzine PAMOATE 50 MG CAPSULE (FP) PO PRN ×2 (03:18→22:26)
[2017-02-27] MEDS: chlordiazePOXIDE HCL 25 MG CAPSULE PO SCH ×2 (05:35→10:20)
[2017-02-27] MEDS: metroNIDAZOLE 250 MG TABLET PO SCH ×2 (10:20→22:24)
[2017-02-27] MEDS: PRENATAL VITAMINS W/ FOLIC ACID TABLET (FP) PO SCH (10:20)
[2017-02-27] MEDS: NICOTINE 21 MG/24 HOURS TOPICAL PATCH TD SCH (10:21)
[2017-02-27] MEDS: METHADONE HCL 5 MG TABLET (FOR DETOX USE ONLY) PO SCH (10:21)
--- NOTE | 2017-02-27 11:35 | PN ---
[facility] CIWA - CIWA Score Nausea/Vomitin Muscle Tremors: 3 Anxiety: 3 Agitation: 3 Paroxysmal Sweats: 3 Orientation: 0-Oriented Tacttile Disturbances: 1-Very Mild Itch/Numbness Auditory Disturbances: 0-None Visual Disturbances: 0-None Headache: 0-None Present CIWA-Ar Total Score: 15 BHS COWS - Scale Resting Pulse: 1= [place] 81-100 Sweatin=Flushed/Facial Moisture Restless Observation: 1= Difficult to Sit Still Pupil Size: 1= Pupils >than Normal Bone or Joint Aches: 2= Severe Diffuse Aches Runny Nose/ Eye Tearin= Nasal Congestion GI Upset > 30mins: 1= Stomach Cramp Tremor Observation of Outstretched Hands: 2= Slight Tremor Visible Yawning Observation: 0= None Anxiety or Irritability: 2=Irritable/Anxious Goose Flesh Skin: 0=Smooth Skin COWS Score: 13 S Progress Note (SOAP) Subjective: interrupted sleep, sweats, shakes, irritated Objective: 02/27/17 11:34 Vital Signs Temperature 97.7 F 02/27/17 11:05 Pulse Rate 82 02/27/17 11:05 Respiratory Rate 16 02/27/17 11:05 Blood Pressure 158/89 02/27/17 11:05 O2 Sat by Pulse Oximetry (%) Laboratory Tests 02/25/17 02/26/17 02/26/17 18:00 07:00 07:00 WBC 4.9 D RBC 3.62 Hgb 10.5 L D Hct 32.2 L MCV 89.1 MCHC 32.4 RDW 15.7 H Plt Count 186 MPV 9.3 Sodium 143 Potassium 4.2 Chloride 108 H Carbon Dioxide 28 Anion Gap 7 L BUN 19 H Creatinine 1.2 H Creat Clearance w eGFR 46.47 Random Glucose 114 H Calcium 8.3 L Total Bilirubin 0.5 D AST 14 L ALT 14 Alkaline Phosphatase 63 Total Protein 5.7 L Albumin 3.0 L Urine Color Ltyellow Urine Appearance Slcloudy Urine pH 5.0 Ur Specific [place] 1.010 Urine Protein Negative Urine Glucose (UA) Negative Urine Ketones Negative Urine Blood 1+ H Urine Nitrite Negative Urine Bilirubin Negative Urine Urobilinogen Negative Ur Leukocyte Esterase 3+ H D Urine RBC 5 Urine WBC 2 Ur Epithelial Cells Rare Urine Bacteria Rare Urine Mucus Rare RPR Titer 02/26/17 07:00 WBC RBC Hgb Hct MCV MCHC RDW Plt Count MPV Sodium Potassium Chloride Carbon Dioxide Anion Gap BUN Creatinine Creat Clearance w eGFR Random Glucose Calcium Total Bilirubin AST ALT Alkaline Phosphatase Total Protein Albumin Urine Color Urine Appearance Urine pH Ur Specific [place] Urine Protein Urine Glucose (UA) Urine Ketones Urine Blood Urine Nitrite Urine Bilirubin Urine Urobilinogen Ur Leukocyte Esterase Urine RBC Urine WBC Ur Epithelial Cells Urine Bacteria Urine Mucus RPR Titer Nonreactive pt aox3 in nad ambulating Assessment: 02/27/17 11:35 withdrawal sx's Plan: cont. detox increase fluids motrin prn
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
[2017-02-27] MEDS: chlordiazePOXIDE 5 MG CAPSULE PO SCH ×2 (18:03→22:24)
[2017-02-27] MEDS: THIAMINE HCL 100 MG TABLET (FP) PO SCH (22:24)
[2017-02-27] MEDS: QUEtiapine FUMARATE 100 MG TABLET (FP) PO SCH (22:24)
[2017-02-27] MEDS: MICONAZOLE NITRATE 2% VAGINAL CREAM 45 GM TUBE VG SCH (22:28)
[2017-02-28] MEDS: chlordiazePOXIDE 5 MG CAPSULE PO SCH ×2 (05:32→11:21)
[2017-02-28] MEDS ORDERED: TRIMETHOBENZAMIDE HCL 300 MG CAPSULE PO PRN (09:35)
--- NOTE | 2017-02-28 09:59 | PN ---
BHS Progress Note (SOAP) Subjective: diarrhea sweats abdominal cramp nausea Objective: 02/28/17 09:58 Vital Signs Temperature 95.9 F L 02/28/17 06:00 Pulse Rate 62 02/28/17 06:00 Respiratory Rate 18 02/28/17 06:00 Blood Pressure 107/59 02/28/17 06:00 O2 Sat by Pulse Oximetry (%) awake/alert ambulating no acute distress Assessment: 02/28/17 09:59 withdrawal sx Plan: continue detox increase fluids tigan po prn immodium prn
[2017-02-28] MEDS: PRENATAL VITAMINS W/ FOLIC ACID TABLET (FP) PO SCH (11:21)
[2017-02-28] MEDS: METHADONE HCL 5 MG TABLET (FOR DETOX USE ONLY) PO SCH (11:21)
[2017-02-28] MEDS: metroNIDAZOLE 250 MG TABLET PO SCH ×2 (11:21→22:05)
[2017-02-28] MEDS: NICOTINE 21 MG/24 HOURS TOPICAL PATCH TD SCH (11:23)
[2017-02-28] MEDS: chlordiazePOXIDE HCL 10 MG CAPSULE PO SCH ×2 (17:09→22:05)
[2017-02-28] MEDS: THIAMINE HCL 100 MG TABLET (FP) PO SCH (22:05)
[2017-02-28] MEDS: QUEtiapine FUMARATE 100 MG TABLET (FP) PO SCH (22:05)
[2017-02-28] MEDS: MICONAZOLE NITRATE 2% VAGINAL CREAM 45 GM TUBE VG SCH (22:05)
[2017-03-01] MEDS: chlordiazePOXIDE HCL 10 MG CAPSULE PO SCH ×2 (05:40→10:30)
[2017-03-01] MEDS ORDERED: METHADONE HCL 10 MG TABLET (FOR DETOX USE ONLY) PO SCH (10:00)
[2017-03-01] MEDS: metroNIDAZOLE 250 MG TABLET PO SCH ×2 (10:30→22:28)
[2017-03-01] MEDS: PRENATAL VITAMINS W/ FOLIC ACID TABLET (FP) PO SCH (10:30)
[2017-03-01] MEDS: NICOTINE 21 MG/24 HOURS TOPICAL PATCH TD SCH (10:31)
--- NOTE | 2017-03-01 10:39 | PN ---
BHS Progress Note (SOAP) Subjective: sweats shakes interrupted sleep Objective: 03/01/17 10:23 Vital Signs Temperature 97.0 F L 03/01/17 07:12 Pulse Rate 72 03/01/17 07:12 Respiratory Rate 16 03/01/17 07:12 Blood Pressure 133/54 03/01/17 07:12 O2 Sat by Pulse Oximetry (%) awake/alert ambulating no acute distress Assessment: 03/01/17 10:26 withdrawal sx Plan: continue detox d/c in am
[2017-03-01] MEDS: diphenhydrAMINE HCL 50 MG CAPSULE PO PRN (22:29)
[2017-03-01] MEDS: THIAMINE HCL 100 MG TABLET (FP) PO SCH (22:29)
[2017-03-01] MEDS: QUEtiapine FUMARATE 100 MG TABLET (FP) PO SCH (22:29)
[2017-03-01] MEDS: MICONAZOLE NITRATE 2% VAGINAL CREAM 45 GM TUBE VG SCH (22:29)
[2017-03-02] MEDS ORDERED: METHADONE HCL 5 MG TABLET (FOR DETOX USE ONLY) PO SCH (06:00)
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
[2017-03-02] MEDS: PRENATAL VITAMINS W/ FOLIC ACID TABLET (FP) PO SCH (10:20)
[2017-03-02] MEDS: metroNIDAZOLE 250 MG TABLET PO SCH (10:20)
[2017-03-02 10:59] VITALS: BP 121/95; PULSE 92; TEMP 97.9
== END 2017-03-02 10:29 | disposition home or self-care (01) | DRG 773 ==
LOC: YASAS 13:38 → Y6N 14:35
PROVIDERS: ADMIT Internal Medicine; ATTEND Internal Medicine Addiction Medicine
PROC: HZ2ZZZZ Detoxification Services for Substance Abuse Treatment (ICD-10-PCS; principal; 2017-03-02)
DX: F11.23 Opioid dependence with withdrawal (principal); F10.230 Alcohol dependence with withdrawal, uncomplicated; F14.20 Cocaine dependence, uncomplicated; F12.20 Cannabis dependence, uncomplicated; F17.210 Nicotine dependence, cigarettes, uncomplicated; F19.24 Other psychoactive substance dependence with psychoactive substance-induced mood disorder; G47.00 Insomnia, unspecified; I10 Essential (primary) hypertension; J44.9 Chronic obstructive pulmonary disease, unspecified; G40.909 Epilepsy, unspecified, not intractable, without status epilepticus; F03.90 Unspecified dementia, unspecified severity, without behavioral disturbance, psychotic disturbance, mood disturbance, and anxiety
CPT/HCPCS: 36415; 80053; 81003; 81015; 85027; 86593; 93005; 93010

== ENCOUNTER 2017-04-07 11:29 | Inpatient (IN) | payer BC ==
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
[2017-04-07 11:58] VITALS: BMI 35.2
[2017-04-07] MEDS ORDERED: guaiFENesin/D-METHORPHAN HB 10 ML UNIT-DOSE CUPS PO PRN (12:09)
[2017-04-07] MEDS ORDERED: IBUPROFEN 400 MG TABLET (FP) PO PRN (12:09)
[2017-04-07] MEDS ORDERED: P-EPHED 60MG/TRIPROLIDI 2.5MG TABLET PO PRN (12:09)
[2017-04-07] MEDS ORDERED: MAGNESIUM HYDROX 2400MG/30ML ORAL SUSPENSION 30 ML CUP PO PRN (12:09)
[2017-04-07] MEDS ORDERED: chlordiazePOXIDE HCL 25 MG CAPSULE PO PRN (12:09)
[2017-04-07] MEDS ORDERED: MAGNESIUM CITRATE 300 ML BOTTLE PO PRN (12:09)
[2017-04-07] MEDS ORDERED: hydrOXYzine PAMOATE 50 MG CAPSULE (FP) PO PRN (12:09)
[2017-04-07] MEDS ORDERED: ACETAMINOPHEN 325 MG TABLET (FP) PO PRN (12:09)
[2017-04-07] MEDS ORDERED: MAG HYDROX/AL HYDROX/SIMETH 30 ML UNIT-DOSE CUP PO PRN (12:09)
[2017-04-07] MEDS ORDERED: NICOTINE POLACRILEX 2 MG GUM BUC PRN (12:09)
[2017-04-07] MEDS ORDERED: MENTHOL/PHENOL 1 EACH UD MM PRN (12:09)
[2017-04-07] MEDS ORDERED: LOPERAMIDE HCL 2 MG CAPSULE PO PRN (12:09)
[2017-04-07] MEDS ORDERED: METHADONE HCL 10 MG TABLET (FOR DETOX USE ONLY) PO ONE ×2 (12:45→23:00)
[2017-04-07] MEDS ORDERED: chlordiazePOXIDE HCL 25 MG CAPSULE PO ONE (12:45)
[2017-04-07] MEDS: NICOTINE 14 MG/24 HOURS TOPICAL PATCH TD SCH (13:19)
[2017-04-07 17:24] LABS: URINE APPEARANCE CLEAR; URINE BILIRUBIN NEGATIVE (NEGATIVE); URINE BLOOD NEGATIVE (NEGATIVE); URINE COLOR COLORLESS; URINE GLUCOSE (UA) NEGATIVE (NEGATIVE); URINE KETONE NEGATIVE (NEGATIVE); URINE LEUK ESTERASE NEGATIVE (NEGATIVE); URINE NITRITE NEGATIVE (NEGATIVE); URINE PROTEIN NEGATIVE (NEGATIVE); URINE UROBILINOGEN NEGATIVE E.U./dl (0.2-1.0)
[2017-04-07] MEDS: chlordiazePOXIDE HCL 25 MG CAPSULE PO SCH ×2 (17:55→22:25)
[2017-04-07] MEDS ORDERED: diphenhydrAMINE HCL 50 MG CAPSULE PO PRN (22:00)
[2017-04-07] MEDS: THIAMINE HCL 100 MG TABLET (FP) PO SCH (22:25)
[2017-04-08] MEDS: chlordiazePOXIDE HCL 25 MG CAPSULE PO SCH ×4 (06:09→22:24)
[2017-04-08] MEDS ORDERED: METHADONE HCL 10 MG TABLET (FOR DETOX USE ONLY) PO SCH (10:00)
[2017-04-08] MEDS: NICOTINE 14 MG/24 HOURS TOPICAL PATCH TD SCH (10:17)
[2017-04-08] MEDS: PRENATAL VITAMINS W/ FOLIC ACID TABLET (FP) PO SCH (10:17)
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
[2017-04-08 10:26] LABS: MCH 28.5 pg (25.7-33.7); MCHC 32.4 g/dl (32.0-36.0); MEAN CELL VOLUME 88.1 fl (80-96); MEAN PLT VOLUME 9.7 fl (7.5-11.1); PLATELET COUNT 191 K/MM3 (134-434); RDW 14.7 % (11.6-15.6); WHITE BLOOD COUNT 5.7 K/mm3 (4.0-10.0)
[2017-04-08 10:37] LABS: ALBUMIN 3.3 g/dl (3.4-5.0); ANION GAP 10 (8-16); CALCIUM 8.6 mg/dL (8.5-10.1); CO2 29 mmol/L (21-32); GLUCOSE,RANDOM 105 mg/dL (74-106)
[2017-04-08 10:41] LABS: ALK PHOS 73 U/L (45-117); BILIRUBIN,TOTAL 0.5 mg/dL (0.2-1.0); CREATININE 1.1 mg/dL (0.55-1.02); SGOT/AST 13 U/L (15-37); SGPT/ALT 15 U/L (12-78); TOT PROT 6.6 g/dl (6.4-8.2)
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
[2017-04-08] MEDS: LISINOPRIL 10 MG TABLET (FP) PO SCH ×2 (13:20→22:25)
--- NOTE | 2017-04-08 13:54 | PN ---
[facility] CIWA - CIWA Score Nausea/Vomitin-Mild Nausea/No Vomiting Muscle Tremors: 3 Anxiety: 4-Mod. Anxious/Guarded Agitation: 4-Moderately Restless Paroxysmal Sweats: 3 Orientation: 0-Oriented Tacttile Disturbances: 0-None Auditory Disturbances: 0-None Visual Disturbances: 0-None Headache: 0-None Present CIWA-Ar Total Score: 15 S COWS - Scale Resting Pulse: 0= [place] 80 or Below Sweatin=Flushed/Facial Moisture Restless Observation: 1= Difficult to Sit Still Pupil Size: 0= Normal to Room Light Bone or Joint Aches: 1= Mild Discomfort Runny Nose/ Eye Tearin= Runny Nose/Eyes GI Upset > 30mins: 2= Nausea/Diarrhea Tremor Observation of Outstretched Hands: 2= Slight Tremor Visible Yawning Observation: 1= 1-2x During Session Anxiety or Irritability: 2=Irritable/Anxious Goose Flesh Skin: 0=Smooth Skin COWS Score: 13 S Progress Note (SOAP) Subjective: Anxiety,tremors,sweating,interrupted sleep,restless Objective: 04/08/17 13:54 Vital Signs - 8 hr 04/08/17 04/08/17 04/08/17 06:48 07:11 10:00 Temperature 97.2 F L 98.4 F Pulse Rate 62 63 74 Respiratory 18 18 16 Rate Blood Pressure 186/99 160/80 140/84 Laboratory Tests 04/07/17 04/08/17 04/08/17 17:00 07:50 07:50 WBC 5.7 RBC 4.36 D Hgb 12.4 D Hct 38.4 D MCV 88.1 MCHC 32.4 RDW 14.7 Plt Count 191 MPV 9.7 Sodium 143 Potassium 3.4 L Chloride 104 Carbon Dioxide 29 Anion Gap 10 BUN 16 Creatinine 1.1 H Creat Clearance w eGFR 51.38 Random Glucose 105 Calcium 8.6 Total Bilirubin 0.5 AST 13 L ALT 15 Alkaline Phosphatase 73 Total Protein 6.6 Albumin 3.3 L Urine Color Colorless Urine Appearance Clear Urine pH 8.0 D Ur Specific [place] 1.015 Urine Protein Negative Urine Glucose (UA) Negative Urine Ketones Negative Urine Blood Negative Urine Nitrite Negative Urine Bilirubin Negative Urine Urobilinogen Negative Ur Leukocyte Esterase Negative RPR Titer 04/08/17 07:50 WBC RBC Hgb Hct MCV MCHC RDW Plt Count MPV Sodium Potassium Chloride Carbon Dioxide Anion Gap BUN Creatinine Creat Clearance w eGFR Random Glucose Calcium Total Bilirubin AST ALT Alkaline Phosphatase Total Protein Albumin Urine Color Urine Appearance Urine pH Ur Specific [place] Urine Protein Urine Glucose (UA) Urine Ketones Urine Blood Urine Nitrite Urine Bilirubin Urine Urobilinogen Ur Leukocyte Esterase RPR Titer Nonreactive labs noted K+ 3.4,k-dur ordered Assessment: 04/08/17 13:55 Withdrawal sx. Plan: Continue detox
[2017-04-08] MEDS: POTASSIUM CHLORIDE TABS 20 MEQ TABLET.ER (FP) PO SCH ×2 (15:38→22:25)
[2017-04-08] MEDS: THIAMINE HCL 100 MG TABLET (FP) PO SCH (22:25)
[2017-04-08] MEDS: QUEtiapine FUMARATE 100 MG TABLET (FP) PO SCH (22:26)
[2017-04-09] MEDS: chlordiazePOXIDE HCL 25 MG CAPSULE PO SCH ×2 (06:24→11:02)
[2017-04-09] MEDS ORDERED: ONDANSETRON *ODT* 4 MG TABLET SL ONE (10:25)
--- NOTE | 2017-04-09 10:31 | PN ---
[facility] CIWA - CIWA Score Nausea/Vomitin-Int. Nausea w/Dry Heave Muscle Tremors: 1-None Visible, but [place] Anxiety: 3 Agitation: 3 Paroxysmal Sweats: 3 Orientation: 0-Oriented Tacttile Disturbances: 1-Very Mild Itch/Numbness Auditory Disturbances: 0-None Visual Disturbances: 0-None Headache: 0-None Present CIWA-Ar Total Score: 15 S COWS - Scale Resting Pulse: 0= [place] 80 or Below Sweatin=Flushed/Facial Moisture Restless Observation: 1= Difficult to Sit Still Pupil Size: 1= Pupils >than Normal Bone or Joint Aches: 1= Mild Discomfort Runny Nose/ Eye Tearin= Nasal Congestion GI Upset > 30mins: 2= Nausea/Diarrhea Tremor Observation of Outstretched Hands: 1= Tremor [place], Not Seen Yawning Observation: 0= None Anxiety or Irritability: 2=Irritable/Anxious Goose Flesh Skin: 0=Smooth Skin COWS Score: 11 [facility] Progress Note (SOAP) Subjective: interrupted sleep, sweats, nausea, vomiting Objective: 04/09/17 10:29 Vital Signs Temperature 97.7 F 04/09/17 06:00 Pulse Rate 72 04/09/17 06:00 Respiratory Rate 18 04/09/17 06:00 Blood Pressure 133/86 04/09/17 06:00 O2 Sat by Pulse Oximetry (%) Laboratory Tests 04/07/17 04/08/17 04/08/17 17:00 07:50 07:50 WBC 5.7 RBC 4.36 D Hgb 12.4 D Hct 38.4 D MCV 88.1 MCHC 32.4 RDW 14.7 Plt Count 191 MPV 9.7 Sodium 143 Potassium 3.4 L Chloride 104 Carbon Dioxide 29 Anion Gap 10 BUN 16 Creatinine 1.1 H Creat Clearance w eGFR 51.38 Random Glucose 105 Calcium 8.6 Total Bilirubin 0.5 AST 13 L ALT 15 Alkaline Phosphatase 73 Total Protein 6.6 Albumin 3.3 L Urine Color Colorless Urine Appearance Clear Urine pH 8.0 D Ur Specific [place] 1.015 Urine Protein Negative Urine Glucose (UA) Negative Urine Ketones Negative Urine Blood Negative Urine Nitrite Negative Urine Bilirubin Negative Urine Urobilinogen Negative Ur Leukocyte Esterase Negative RPR Titer 04/08/17 07:50 WBC RBC Hgb Hct MCV MCHC RDW Plt Count MPV Sodium Potassium Chloride Carbon Dioxide Anion Gap BUN Creatinine Creat Clearance w eGFR Random Glucose Calcium Total Bilirubin AST ALT Alkaline Phosphatase Total Protein Albumin Urine Color Urine Appearance Urine pH Ur Specific [place] Urine Protein Urine Glucose (UA) Urine Ketones Urine Blood Urine Nitrite Urine Bilirubin Urine Urobilinogen Ur Leukocyte Esterase RPR Titer Nonreactive pt aox3 , lying in bed , irritable Assessment: 04/09/17 10:30 withdrawal sx's Plan: cont. detox increase fluids zofran s/l
[2017-04-09] MEDS: POTASSIUM CHLORIDE TABS 20 MEQ TABLET.ER (FP) PO SCH ×2 (11:02→22:19)
[2017-04-09] MEDS: PRENATAL VITAMINS W/ FOLIC ACID TABLET (FP) PO SCH (11:02)
[2017-04-09] MEDS: METHADONE HCL 5 MG TABLET (FOR DETOX USE ONLY) PO SCH (11:02)
[2017-04-09] MEDS: LISINOPRIL 10 MG TABLET (FP) PO SCH ×2 (11:02→22:19)
[2017-04-09] MEDS: NICOTINE 14 MG/24 HOURS TOPICAL PATCH TD SCH (11:03)
[2017-04-09] MEDS: chlordiazePOXIDE 5 MG CAPSULE PO SCH ×2 (17:38→22:19)
[2017-04-09] MEDS: QUEtiapine FUMARATE 100 MG TABLET (FP) PO SCH (22:19)
[2017-04-09] MEDS: THIAMINE HCL 100 MG TABLET (FP) PO SCH (22:19)
[2017-04-10] MEDS: chlordiazePOXIDE 5 MG CAPSULE PO SCH ×2 (05:58→10:26)
[2017-04-10] MEDS: NICOTINE 14 MG/24 HOURS TOPICAL PATCH TD SCH (10:26)
[2017-04-10] MEDS: METHADONE HCL 5 MG TABLET (FOR DETOX USE ONLY) PO SCH (10:26)
[2017-04-10] MEDS: LISINOPRIL 10 MG TABLET (FP) PO SCH ×2 (10:26→22:16)
[2017-04-10] MEDS: PRENATAL VITAMINS W/ FOLIC ACID TABLET (FP) PO SCH (10:26)
[2017-04-10] MEDS: POTASSIUM CHLORIDE TABS 20 MEQ TABLET.ER (FP) PO SCH ×2 (10:26→22:16)
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
[2017-04-10] MEDS ORDERED: LIDOCAINE 5% TOPICAL PATCH TP ONE (10:36)
[2017-04-10] MEDS: chlordiazePOXIDE HCL 10 MG CAPSULE PO SCH ×2 (17:11→22:16)
[2017-04-10] MEDS ORDERED: LIDOCAINE PATCH REMOVAL MC SCH (22:00)
[2017-04-10] MEDS: THIAMINE HCL 100 MG TABLET (FP) PO SCH (22:15)
[2017-04-10] MEDS: QUEtiapine FUMARATE 100 MG TABLET (FP) PO SCH (22:16)
[2017-04-10] MEDS: LIDOCAINE PATCH REMOVAL MC SCH (22:17)
[2017-04-11] MEDS: chlordiazePOXIDE HCL 10 MG CAPSULE PO SCH ×2 (06:20→10:12)
[2017-04-11] MEDS ORDERED: METHADONE HCL 10 MG TABLET (FOR DETOX USE ONLY) PO SCH (10:00)
[2017-04-11] MEDS ORDERED: LIDOCAINE 5% TOPICAL PATCH TP SCH (10:00)
[2017-04-11] MEDS: PRENATAL VITAMINS W/ FOLIC ACID TABLET (FP) PO SCH (10:12)
[2017-04-11] MEDS: POTASSIUM CHLORIDE TABS 20 MEQ TABLET.ER (FP) PO SCH ×2 (10:12→22:31)
[2017-04-11] MEDS: LISINOPRIL 10 MG TABLET (FP) PO SCH ×2 (10:12→22:31)
[2017-04-11] MEDS: NICOTINE 14 MG/24 HOURS TOPICAL PATCH TD SCH (10:13)
--- NOTE | 2017-04-11 12:50 | PN ---
S Progress Note (SOAP) Subjective: lbp, diarrhea, tired , drowsy Objective: 04/11/17 12:49 Vital Signs Temperature 97.2 F L 04/11/17 09:52 Pulse Rate 94 H 04/11/17 09:52 Respiratory Rate 16 04/11/17 09:52 Blood Pressure 129/77 04/11/17 09:52 O2 Sat by Pulse Oximetry (%) Vital Signs Temperature 97.2 F L 04/11/17 09:52 Pulse Rate 94 H 04/11/17 09:52 Respiratory Rate 16 04/11/17 09:52 Blood Pressure 129/77 04/11/17 09:52 O2 Sat by Pulse Oximetry (%) Laboratory Tests 04/07/17 04/08/17 04/08/17 17:00 07:50 07:50 WBC 5.7 RBC 4.36 D Hgb 12.4 D Hct 38.4 D MCV 88.1 MCHC 32.4 RDW 14.7 Plt Count 191 MPV 9.7 Sodium 143 Potassium 3.4 L Chloride 104 Carbon Dioxide 29 Anion Gap 10 BUN 16 Creatinine 1.1 H Creat Clearance w eGFR 51.38 Random Glucose 105 Calcium 8.6 Total Bilirubin 0.5 AST 13 L ALT 15 Alkaline Phosphatase 73 Total Protein 6.6 Albumin 3.3 L Urine Color Colorless Urine Appearance Clear Urine pH 8.0 D Ur Specific [place] 1.015 Urine Protein Negative Urine Glucose (UA) Negative Urine Ketones Negative Urine Blood Negative Urine Nitrite Negative Urine Bilirubin Negative Urine Urobilinogen Negative Ur Leukocyte Esterase Negative RPR Titer 04/08/17 07:50 WBC RBC Hgb Hct MCV MCHC RDW Plt Count MPV Sodium Potassium Chloride Carbon Dioxide Anion Gap BUN Creatinine Creat Clearance w eGFR Random Glucose Calcium Total Bilirubin AST ALT Alkaline Phosphatase Total Protein Albumin Urine Color Urine Appearance Urine pH Ur Specific [place] Urine Protein Urine Glucose (UA) Urine Ketones Urine Blood Urine Nitrite Urine Bilirubin Urine Urobilinogen Ur Leukocyte Esterase RPR Titer Nonreactive pt alert but sleepy in bed Assessment: 04/11/17 12:49 witrhdrawal sx's Plan: cont. detox increase fluids d/c in am
[2017-04-11] MEDS: QUEtiapine FUMARATE 100 MG TABLET (FP) PO SCH (22:31)
[2017-04-11] MEDS: THIAMINE HCL 100 MG TABLET (FP) PO SCH (22:31)
[2017-04-11] MEDS: LIDOCAINE PATCH REMOVAL MC SCH (23:48)
[2017-04-12] MEDS ORDERED: METHADONE HCL 5 MG TABLET (FOR DETOX USE ONLY) PO SCH (06:00)
[2017-04-12 06:39] VITALS: BP 141/76; PULSE 83; TEMP 97.5
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
== END 2017-04-12 10:30 | disposition home or self-care (01) | DRG 773 ==
LOC: YASAS 11:29 → Y6N 12:11
PROVIDERS: ADMIT Internal Medicine; ATTEND Internal Medicine
PROC: HZ2ZZZZ Detoxification Services for Substance Abuse Treatment (ICD-10-PCS; principal; 2017-04-07)
DX: F11.23 Opioid dependence with withdrawal (principal); F10.230 Alcohol dependence with withdrawal, uncomplicated; F14.20 Cocaine dependence, uncomplicated; F12.20 Cannabis dependence, uncomplicated; F17.210 Nicotine dependence, cigarettes, uncomplicated; F19.24 Other psychoactive substance dependence with psychoactive substance-induced mood disorder; F31.81 Bipolar II disorder; J44.9 Chronic obstructive pulmonary disease, unspecified; G47.00 Insomnia, unspecified; E66.9 Obesity, unspecified; Z68.35 Body mass index [BMI] 35.0-35.9, adult; Z86.79 Personal history of other diseases of the circulatory system; Z86.69 Personal history of other diseases of the nervous system and sense organs
CPT/HCPCS: 36415; 80053; 81003; 85027; 86593; 93005; 93010

== ENCOUNTER 2017-07-17 10:48 | Inpatient (IN) | payer BC ==
[2017-07-17 13:40] VITALS: BMI 36.8
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
[2017-07-17] MEDS ORDERED: LOPERAMIDE HCL 2 MG CAPSULE PO PRN (14:48)
[2017-07-17] MEDS ORDERED: chlordiazePOXIDE HCL 25 MG CAPSULE PO ONE (14:48)
[2017-07-17] MEDS ORDERED: IBUPROFEN 400 MG TABLET (FP) PO PRN (14:48)
[2017-07-17] MEDS ORDERED: MENTHOL/PHENOL 1 EACH UD MM PRN (14:48)
[2017-07-17] MEDS ORDERED: diphenhydrAMINE HCL 50 MG CAPSULE PO PRN (14:48)
[2017-07-17] MEDS ORDERED: ACETAMINOPHEN 325 MG TABLET (FP) PO PRN (14:48)
[2017-07-17] MEDS ORDERED: P-EPHED 60MG/TRIPROLIDI 2.5MG TABLET PO PRN (14:48)
[2017-07-17] MEDS ORDERED: chlordiazePOXIDE HCL 25 MG CAPSULE PO PRN (14:48)
[2017-07-17] MEDS ORDERED: hydrOXYzine PAMOATE 50 MG CAPSULE (FP) PO PRN (14:48)
[2017-07-17] MEDS ORDERED: MAGNESIUM HYDROX 2400MG/30ML ORAL SUSPENSION 30 ML CUP PO PRN (14:48)
[2017-07-17] MEDS ORDERED: MAG HYDROX/AL HYDROX/SIMETH 30 ML UNIT-DOSE CUP PO PRN (14:48)
[2017-07-17] MEDS ORDERED: guaiFENesin/D-METHORPHAN HB 10 ML UNIT-DOSE CUPS PO PRN (14:48)
[2017-07-17] MEDS ORDERED: NICOTINE POLACRILEX 4 MG GUM BC PRN (14:48)
[2017-07-17] MEDS ORDERED: MAGNESIUM CITRATE 300 ML BOTTLE PO PRN (14:48)
[2017-07-17] MEDS ORDERED: ALBUTEROL SO4 2.5/IPRATROPIUM 0.5 INH SOL 3 ML VIAL.NEB. NEB PRN (14:54)
[2017-07-17] MEDS ORDERED: METHADONE HCL 10 MG TABLET (FOR DETOX USE ONLY) PO ONE ×2 (17:00→23:00)
[2017-07-17] MEDS ORDERED: ALBUTEROL SO4 2.5/IPRATROPIUM 0.5 INH SOL 3 ML VIAL.NEB. NEB ONE (17:00)
[2017-07-17] MEDS: chlordiazePOXIDE HCL 25 MG CAPSULE PO SCH ×2 (17:45→22:07)
[2017-07-17] MEDS ORDERED: THIAMINE HCL 100 MG TABLET (FP) PO SCH (22:00)
[2017-07-17 22:04] VITALS: BP 153/90; PULSE 64; TEMP 97.9
--- NOTE | 2017-07-17 22:22 | PN ---
[facility] Progress Note Note: PATIENT FELL ON WET FLOOR OBSERVED PATIENT SITTING ON BED, ALERT ORIENTED X 3, SPEECH CLEARLY, COHERENT, AMBULATE INDEPENDENTLY FROM ROOM TO NURSE STATION, "I HIT MY HEAD AND MY BACK" NORMAL CEPHALIC, SCALP NONE TENDER, PERRLA EOMI, LUMBAR SPINE NON TENDER, NO SWELL, NO VISIBLE INJURY NOTED, DUE TO PROTOCOL, AMBULANCE HAD BEEN CALLED AND INFORMATION PROVIDED TO ER, MAY RETURN TO [facility] CONTINUE DETOX WHEN MEDICALLY CLEARED.
[2017-07-18 01:39] LABS: URINE APPEARANCE CLOUDY; URINE BILIRUBIN NEGATIVE (NEGATIVE); URINE BLOOD 1+ (NEGATIVE); URINE COLOR AMBER; URINE GLUCOSE (UA) NEGATIVE (NEGATIVE); URINE KETONE NEGATIVE (NEGATIVE); URINE LEUK ESTERASE NEGATIVE (NEGATIVE); URINE NITRITE NEGATIVE (NEGATIVE); URINE PROTEIN NEGATIVE (NEGATIVE); URINE UROBILINOGEN NEGATIVE mg/dL (0.2-1.0)
[2017-07-18 01:54] LABS: URINE BACTERIA MANY /hpf (NONE SEEN); URINE MUCUS RARE; URINE RBC 2 /hpf (0-3); URINE WBC 5 /hpf (3-5)
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
--- NOTE | 2017-07-18 08:03 | CONSULT ---
S Psychiatric Consult - Data Substance Abuse History: - Smoking Cessation. Smoking history: Current every day smoker. Have you smoked in the past 12 months: Yes. Aproximately how many cigarettes per day: 20. Cigars Per Day: 0. Hx Chewing Tobacco Use: No. Initiated information on smoking cessation: Yes. 'Breaking Loose' booklet given : 07/17/17. - Substance & Tx. History. Hx Alcohol Use: Yes. Hx Substance Use : Yes. Substance Use Type: Alcohol, Cocaine, Heroin, Marijuana. Hx Substance Use Treatment: Yes ([facility] detox 3yrs ago). - Substances Abused. Heroin. Route: Inhalation. Frequency: Daily. Amount used: 6-7 bags. Age of first use: 22. Date of Last Use: 07/17/17. Crack. Route: Smoking. Frequency: 3- 6 times per week. Amount used: $200. Age of first use: 22. Date of Last Use: 07/15/17. Alcohol-wine/four floyd. Route: Oral. Frequency: Daily. Amount used: 2 pts./1-6 pk. Age of first use: 35. Date of Last Use: 07/17/17. Marijuana. Route: Smoking. Frequency: Daily. Amount used: $10. Age of first use: 17. Date of Last Use: 07/16/17
--- NOTE | 2017-07-18 09:53 | EKG ---
Test Reason : Blood Pressure : / mmHG Vent. Rate : 061 BPM Atrial Rate : 061 BPM P-R Int : 160 ms QRS Dur : 080 ms QT Int : 434 ms P-R-T Axes : 027 020 019 degrees QTc Int : 436 ms NORMAL SINUS RHYTHM NORMAL ECG WHEN COMPARED WITH ECG OF 07-APR-2017 12:24, NO SIGNIFICANT CHANGE WAS FOUND Confirmed by BRUCE YOON MD ([id number]) on 07/18/2017 9:52:55 AM Referred By: Confirmed By:BRUCE YOON MD
[2017-07-18] MEDS ORDERED: NICOTINE 21 MG/24 HOURS TOPICAL PATCH TD SCH (10:00)
[2017-07-18] MEDS ORDERED: METHADONE HCL 10 MG TABLET (FOR DETOX USE ONLY) PO SCH (10:00)
[2017-07-18] MEDS ORDERED: PRENATAL VITAMINS W/ FOLIC ACID TABLET (FP) PO SCH (10:00)
[2017-07-18 10:07] LABS: MCH 28.8 pg (25.7-33.7); MCHC 32.2 g/dl (32.0-36.0); MEAN CELL VOLUME 89.5 fl (80-96); PLATELET COUNT 237 K/MM3 (134-434); RDW 14.8 % (11.6-15.6); WHITE BLOOD COUNT 5.6 K/mm3 (4.0-10.0)
[2017-07-18 10:51] LABS: ALBUMIN 3.3 g/dl (3.4-5.0); ALK PHOS 80 U/L (45-117); ANION GAP 8 (8-16); BILIRUBIN,TOTAL 0.2 mg/dL (0.2-1.0); CALCIUM 8.7 mg/dL (8.5-10.1); CO2 25 mmol/L (21-32); CREATININE 1.1 mg/dL (0.55-1.02); GLUCOSE,RANDOM 100 mg/dL (74-106); SGOT/AST 14 U/L (15-37); SGPT/ALT 14 U/L (12-78); TOT PROT 6.6 g/dl (6.4-8.2)
[2017-07-18 12:00] LABS: HIV 1 & 2 AB NEGATIVE; HIV 1 AGp24 NEGATIVE
[2017-07-18] MEDS ORDERED: FLU VACCINE QUAD 60 MCG/0.5 ML (MDV 17-18) IM ONE (12:00)
[2017-07-18] MEDS ORDERED: chlordiazePOXIDE HCL 25 MG CAPSULE PO SCH (17:00)
[2017-07-19] MEDS ORDERED: METHADONE HCL 5 MG TABLET (FOR DETOX USE ONLY) PO SCH (10:00)
[2017-07-19] MEDS ORDERED: chlordiazePOXIDE 5 MG CAPSULE PO SCH (17:00)
[2017-07-20] MEDS ORDERED: chlordiazePOXIDE HCL 10 MG CAPSULE PO SCH (17:00)
[2017-07-21] MEDS ORDERED: METHADONE HCL 10 MG TABLET (FOR DETOX USE ONLY) PO SCH (10:00)
[2017-07-22] MEDS ORDERED: METHADONE HCL 5 MG TABLET (FOR DETOX USE ONLY) PO SCH (06:00)
== END 2017-07-18 08:52 | disposition short-term general hospital (02) | DRG 773 ==
LOC: YASAS 10:48 → Y6N 15:53
PROVIDERS: ADMIT Internal Medicine; ATTEND Internal Medicine
PROC: HZ2ZZZZ Detoxification Services for Substance Abuse Treatment (ICD-10-PCS; principal; 2017-07-17)
DX: F11.23 Opioid dependence with withdrawal (principal); F10.230 Alcohol dependence with withdrawal, uncomplicated; F14.20 Cocaine dependence, uncomplicated; F12.20 Cannabis dependence, uncomplicated; F17.210 Nicotine dependence, cigarettes, uncomplicated; I10 Essential (primary) hypertension; J44.9 Chronic obstructive pulmonary disease, unspecified; F03.90 Unspecified dementia, unspecified severity, without behavioral disturbance, psychotic disturbance, mood disturbance, and anxiety; Z91.011 Allergy to milk products; Z87.42 Personal history of other diseases of the female genital tract
CPT/HCPCS: 36415; 80053; 81003; 81015; 85027; 86593; 86803; 87389; 93005; 93010; 94640

== ENCOUNTER 2017-07-17 22:23 | Inpatient (IN) | payer BC ==
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
[2017-07-18 00:38] VITALS: TEMP 97.9
[2017-07-18] MEDS ORDERED: KETOROLAC TROMETHAMINE 30 MG/1 ML VIAL IM ONE (02:55)
[2017-07-18] MEDS ORDERED: diphenhydrAMINE HCL 25 MG CAPSULE (FP) PO ONE ×2 (02:55→03:18)
[2017-07-18] MEDS ORDERED: KETOROLAC TROMETHAMINE 30 MG/1 ML VIAL ONE (03:18)
--- NOTE | 2017-07-18 04:04 | PN ---
Teaching Attending Note Name of Resident: Vidya Marsh ATTENDING PHYSICIAN STATEMENT I saw and evaluated the patient. I reviewed the resident's note and discussed the case with the resident. I agree with the resident's findings and plan as documented. SUBJECTIVE: 56 F with Pmhx of COPD, Polysubstance abuse, and htn who presents after slipping on wet floor from Detox. States she hit her head and back and has upper and lower back pain. Offered no other history. OBJECTIVE: Physical: VS: Vital Signs Period Temp Pulse Resp BP Sys/Begum Pulse Ox Last 24 Hr 97.9 F 61 16 164-191/90-92 98 GEN: NAD, resting in bed HEENT: NCAT, PERRL, throat without erythema or exudates CARD: RRR S1, S2 RESP: CTAB ABD: BSx4, NTD to palpation EXT: - C/C/E MS +5/5 LABS- Pt. Refusing Home Medications Medication Instructions Recorded Quetiapine Fumarate [Seroquel] 100 mg PO HS #30 tablet 04/08/17 CT HEAD- No Mass or intracranial hemmorage, focal encephalomalacia R. Frontal high Convexity L spine CT with 5 mm subluxation between L4-L5 and between L5-S1. ASSESSMENT AND PLAN: 56 yo F with pmhx. of COPD, Polysubstance abuse, and htn who presents s/p mechanical fall after slipping on water 1.) Mechanical Fall - Low back pain with L- spine subluxation - MRI L Spine - Neuro Sx on consult 2.) COPD - C/W Home meds 3.) HTN - C/W Home meds 4.) ETOH/Polysubstance abuse - CIWA - Librium/Methadone as per protocol at [facility] - Detox Consult 5.) Dvt Ppx - Low risk - SCD Place in Obs
[2017-07-18] MEDS ORDERED: guaiFENesin/D-METHORPHAN HB 10 ML UNIT-DOSE CUPS PO PRN (04:53)
[2017-07-18] MEDS ORDERED: ACETAMINOPHEN 325 MG TABLET (FP) PO PRN (04:53)
[2017-07-18] MEDS ORDERED: LOPERAMIDE HCL 2 MG CAPSULE PO PRN (04:54)
[2017-07-18] MEDS ORDERED: IBUPROFEN 400 MG TABLET (FP) PO PRN (04:54)
[2017-07-18] MEDS ORDERED: hydrOXYzine PAMOATE 50 MG CAPSULE (FP) PO PRN (04:54)
[2017-07-18] MEDS ORDERED: MAG HYDROX/AL HYDROX/SIMETH 30 ML UNIT-DOSE CUP PO PRN (04:54)
[2017-07-18] MEDS ORDERED: MAGNESIUM CITRATE 300 ML BOTTLE PO PRN (04:55)
[2017-07-18] MEDS ORDERED: MENTHOL/PHENOL 1 EACH UD MM PRN (04:55)
[2017-07-18] MEDS ORDERED: MAGNESIUM HYDROX 2400MG/30ML ORAL SUSPENSION 30 ML CUP PO PRN (04:55)
[2017-07-18] MEDS ORDERED: NICOTINE POLACRILEX 4 MG GUM BUC PRN (04:56)
[2017-07-18] MEDS ORDERED: ALBUTEROL SO4 2.5/IPRATROPIUM 0.5 INH SOL 3 ML VIAL.NEB. NEB PRN (04:57)
--- NOTE | 2017-07-18 04:57 | HP ---
Admitting History and Physical - Admission History of Present Illness: 56 F with Pmhx of COPD, Polysubstance abuse, and htn presents to the ED after slip and fall on water from [facility]. Per notes patient was taking a shower howvever she denies taking a shower. Had multiple findings on spinal imaging mostly thought to be chronic but neurosurgery recoemmnds doing an MRI before releasing the patient back to [facility]. Patient denies nausea vomiting fevers chills chest pain or shortness of breath at this time. Patient appeared intoxicated during the interview. - Smoking History Smoking history: Current every day smoker Have you smoked in the past 12 months: Yes Aproximately how many cigarettes per day: 20 - Alcohol/Substance Use Hx Alcohol Use: Yes Home Medications - Allergies Allergies/Adverse Reactions: Allergies Allergy/AdvReac Type Severity Reaction Status Date / Time No Known Drug Allergies Allergy Verified 07/17/17 14:02 lactose AdvReac Intermediate Nausea Verified 07/17/17 14:02 - Home Medications Home Medications: Ambulatory Orders Quetiapine Fumarate [Seroquel] 100 mg PO HS #30 tablet 04/08/17 Family Disease History - Family Disease History Family Disease History: Diabetes: Grandparent (HTN.), Heart Disease: Grandparent , Respiratory: Father ( - etoh, drugs), Other: Father, Mother (alive, no medical problems), Brother (one alive - no problems), Sister (three living - one with MS), Daughter (two - no problems) Physical Examination Vital Signs: Vital Signs Temperature 97.9 F 07/17/17 22:42 Pulse Rate 61 07/17/17 22:42 Respiratory Rate 16 07/17/17 22:42 Blood Pressure 164/92 07/18/17 02:35 O2 Sat by Pulse Oximetry (%) 98 07/17/17 22:42 Constitutional: Yes: No Distress, Calm, Obese Eyes: Yes: Conjunctiva Clear HENT: Yes: Atraumatic Neck: Yes: Supple Cardiovascular: Yes: Regular Rate and Rhythm Respiratory: Yes: Wheezes (mild wheezing bilaterally) Gastrointestinal: Yes: Soft Musculoskeletal: Yes: Other (mild paraspinal tenderness no midline tenderness) Edema: No Neurological: Yes: Alert, Oriented, Cran Nerves II-XII Intact, Other (global muscle strength 5/5 patient did not cooperate for reflexes exam.) Imaging - Results Chest X-ray: Image Reviewed Cat Scan: Image Reviewed Assessment/Plan 56F with polysubstance abuse presents after fall Problem list: Psychiatric d/o NOS polysubstance abuse heroine abuse cocaine/crack abuse alcohol abuse mechanical fall subluxation of L4-L5 L5-S1 COPD Plan: Continue librium detox detox consult continue methadone taper neurosurgery consult MRI L spine DVT PPx pain control no narcotics sodium controlled diet Bronchodilators Visit type - Emergency Visit Emergency Visit: Yes ED Registration Date: 07/18/17 Care time: The patient presented to the Emergency Department on the above date and was hospitalized for further evaluation of their emergent condition. - New Patient This patient is new to me today: Yes Date on this admission: 07/18/17 - Critical Care Critical Care patient: No
[2017-07-18] MEDS ORDERED: diphenhydrAMINE HCL 25 MG CAPSULE (FP) PO PRN (04:58)
[2017-07-18] MEDS ORDERED: chlordiazePOXIDE HCL 25 MG CAPSULE PO PRN (05:01)
[2017-07-18] MEDS ORDERED: chlordiazePOXIDE HCL 25 MG CAPSULE ONE ×2 (05:13→12:27)
[2017-07-18 05:20] LABS: MCH 29.2 pg (25.7-33.7); MCHC 32.9 g/dl (32.0-36.0); MEAN CELL VOLUME 88.7 fl (80-96); MEAN PLT VOLUME 8.7 fl (7.5-11.1); PLATELET COUNT 209 K/MM3 (134-434); RDW 15.1 % (11.6-15.6); WHITE BLOOD COUNT 5.2 K/mm3 (4.0-10.0)
[2017-07-18 05:33] LABS: INR 0.98 (0.82-1.09); PROTHROMBIN TIME (PATIENT) 10.8 SEC (9.98-11.88)
[2017-07-18 05:36] LABS: ACTIVATED PTT 30.5 SECONDS (26.9-34.4)
[2017-07-18 05:42] LABS: ALBUMIN 2.7 g/dl (3.4-5.0); ANION GAP 7 (8-16); CALCIUM 8.7 mg/dL (8.5-10.1); CO2 29 mmol/L (21-32); CREATININE 1.2 mg/dL (0.55-1.02); GLUCOSE,RANDOM 111 mg/dL (74-106); MAGNESIUM 2.1 mg/dL (1.8-2.4); PHOSPHOROUS 2.8 mg/dL (2.5-4.9); SGOT/AST 10 U/L (15-37); SGPT/ALT 12 U/L (12-78)
[2017-07-18] MEDS: chlordiazePOXIDE HCL 25 MG CAPSULE PO SCH ×2 (05:43→12:29)
[2017-07-18 05:44] LABS: ALK PHOS 71 U/L (45-117); BILIRUBIN,TOTAL 0.2 mg/dL (0.2-1.0); TOT PROT 5.5 g/dl (6.4-8.2)
[2017-07-18] MEDS ORDERED: HEPARIN NA (PORCINE) 5,000 UNITS/ML 1ML VIAL ONE (06:24)
[2017-07-18] MEDS: HEPARIN NA (PORCINE) 5,000 UNITS/ML 1ML VIAL SQ SCH ×2 (06:38→14:24)
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
[2017-07-18] MEDS ORDERED: METHADONE HCL 10 MG TABLET PO SCH (10:00)
[2017-07-18] MEDS ORDERED: NICOTINE 21 MG/24 HOURS TOPICAL PATCH TD SCH (10:00)
[2017-07-18] MEDS ORDERED: PRENATAL VITAMINS W/ FOLIC ACID TABLET (FP) PO SCH (10:00)
[2017-07-18] MEDS ORDERED: METHADONE HCL 10 MG TABLET ONE (10:13)
[2017-07-18] MEDS ORDERED: FLU VACCINE QUAD 60 MCG/0.5 ML (MDV 17-18) IM ONE (13:30)
--- NOTE | 2017-07-18 14:24 | PN ---
[facility] Progress Note (SOAP) Subjective: Pt. was sent to ED from [facility] because of a fall with head trauma. Objective: 07/18/17 14:22 Vital Signs 07/18/17 07:05 Pulse Rate [ 76 Right Radial] Blood Pressure 135/78 [Left Arm] O2 Sat by Pulse 98 Oximetry (%) Laboratory Tests 07/18/17 07/18/17 07/18/17 05:15 05:15 05:15 WBC 5.2 RBC 3.53 L Hgb 10.3 L D Hct 31.3 L D MCV 88.7 MCH 29.2 MCHC 32.9 RDW 15.1 Plt Count 209 MPV 8.7 D PT with INR 10.80 INR 0.98 PTT (Actin FS) 30.5 Sodium 143 Potassium 3.8 Chloride 107 Carbon Dioxide 29 Anion Gap 7 L BUN 17 Creatinine 1.2 H Creat Clearance w eGFR 46.47 Random Glucose 111 H Calcium 8.7 Phosphorus 2.8 Magnesium 2.1 Total Bilirubin 0.2 D AST 10 L D ALT 12 Alkaline Phosphatase 71 Total Protein 5.5 L Albumin 2.7 L labs noted Assessment: 07/18/17 14:22 Fall with Head trauma Plan: fall protocol #1 Continue detox
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
[2017-07-18 15:36] VITALS: BP 118/62; PULSE 61; BMI 36.2
[2017-07-18] MEDS ORDERED: chlordiazePOXIDE HCL 25 MG CAPSULE PO SCH (17:00)
--- NOTE | 2017-07-18 18:07 | PN ---
Teaching Attending Note Name of Resident: Jese Bass ATTENDING PHYSICIAN STATEMENT I saw and evaluated the patient. I reviewed the resident's note and discussed the case with the resident. I agree with the resident's findings and plan as documented. SUBJECTIVE: OBJECTIVE: Vital Signs Period Temp Pulse Resp BP Sys/Begum Pulse Ox Last 24 Hr 97.9 F 61-76 16-18 118-191/62-92 97-98 ASSESSMENT AND PLAN:
[2017-07-18] MEDS ORDERED: THIAMINE HCL 100 MG TABLET (FP) PO SCH (22:00)
[2017-07-19] MEDS ORDERED: METHADONE HCL 5 MG TABLET PO SCH (10:00)
[2017-07-19] MEDS ORDERED: chlordiazePOXIDE 5 MG CAPSULE PO SCH (17:00)
[2017-07-20] MEDS ORDERED: chlordiazePOXIDE HCL 10 MG CAPSULE PO SCH (17:00)
[2017-07-21] MEDS ORDERED: METHADONE HCL 10 MG TABLET PO SCH (10:00)
[2017-07-22] MEDS ORDERED: METHADONE HCL 5 MG TABLET PO SCH (06:00)
== END 2017-07-18 16:40 | disposition short-term general hospital (02) | DRG 347 ==
LOC: JER 22:23 → JERBED 07-18 03:53 → UNDOADMOB 07-18 04:02 → OBSVTOIN 07-18 07:12
PROVIDERS: ADMIT Internal Medicine; ATTEND Internal Medicine
PROC: HZ2ZZZZ Detoxification Services for Substance Abuse Treatment (ICD-10-PCS; principal; 2017-07-17)
DX: S33.140A Subluxation of L4/L5 lumbar vertebra, initial encounter (principal); M54.5 Low back pain; S09.8XXA Other specified injuries of head, initial encounter; J44.9 Chronic obstructive pulmonary disease, unspecified; I10 Essential (primary) hypertension; F10.230 Alcohol dependence with withdrawal, uncomplicated; W18.2XXA Fall in (into) shower or empty bathtub, initial encounter; Y93.89 Activity, other specified; Y92.89 Other specified places as the place of occurrence of the external cause; F19.10 Other psychoactive substance abuse, uncomplicated; F17.210 Nicotine dependence, cigarettes, uncomplicated; F14.20 Cocaine dependence, uncomplicated; F12.20 Cannabis dependence, uncomplicated; F03.90 Unspecified dementia, unspecified severity, without behavioral disturbance, psychotic disturbance, mood disturbance, and anxiety; F32.89 Other specified depressive episodes; G40.89 Other seizures; G93.89 Other specified disorders of brain
CPT/HCPCS: 36415; 70450-TC; 72125-TC; 72128-TC; 72131-TC; 80053; 83735; 84100; 85027; 85610; 85730; 99282-25; G0378; J1644

== ENCOUNTER 2017-08-28 13:04 | Inpatient (IN) | payer BC ==
[2017-08-28 13:50] VITALS: BMI 35.5
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
[2017-08-28] MEDS ORDERED: LOPERAMIDE HCL 2 MG CAPSULE PO PRN (15:40)
[2017-08-28] MEDS ORDERED: P-EPHED 60MG/TRIPROLIDI 2.5MG TABLET PO PRN (15:40)
[2017-08-28] MEDS ORDERED: MENTHOL/PHENOL 1 EACH UD MM PRN (15:40)
[2017-08-28] MEDS ORDERED: MAGNESIUM HYDROX 2400MG/30ML ORAL SUSPENSION 30 ML CUP PO PRN (15:40)
[2017-08-28] MEDS ORDERED: guaiFENesin/D-METHORPHAN HB 10 ML UNIT-DOSE CUPS PO PRN (15:40)
[2017-08-28] MEDS ORDERED: MAG HYDROX/AL HYDROX/SIMETH 30 ML UNIT-DOSE CUP PO PRN (15:40)
[2017-08-28] MEDS ORDERED: hydrOXYzine PAMOATE 25 MG CAPSULE (FP) PO PRN (15:40)
[2017-08-28] MEDS ORDERED: chlordiazePOXIDE HCL 25 MG CAPSULE PO PRN (15:40)
[2017-08-28] MEDS ORDERED: ACETAMINOPHEN 325 MG TABLET (FP) PO PRN (15:40)
[2017-08-28] MEDS ORDERED: IBUPROFEN 400 MG TABLET (FP) PO PRN (15:40)
[2017-08-28] MEDS ORDERED: MAGNESIUM CITRATE 300 ML BOTTLE PO PRN (15:40)
[2017-08-28] MEDS ORDERED: chlordiazePOXIDE HCL 25 MG CAPSULE PO ONE (15:40)
[2017-08-28] MEDS ORDERED: ALBUTEROL SO4 18 GM HFA INHALER IH PRN (15:44)
[2017-08-28] MEDS ORDERED: cloNIDine HCL 0.1 MG TABLET PO ONE (16:45)
--- NOTE | 2017-08-28 18:05 | PN ---
BHS Progress Note Note: pt has a BP 220/110. HR 65, pt is diaphoretic. denies any chest pain. report given to Dr. Vera for pt evaluation.
[2017-08-28] MEDS ORDERED: METHADONE HCL 10 MG TABLET (FOR DETOX USE ONLY) PO ONE ×2 (18:30→23:00)
[2017-08-28] MEDS: chlordiazePOXIDE HCL 25 MG CAPSULE PO SCH ×2 (18:36→22:56)
[2017-08-28] MEDS: NICOTINE 21 MG/24 HOURS TOPICAL PATCH TD SCH (18:40)
[2017-08-28] MEDS: BUDESONIDE/FORMETEROL FUMARATE 80/4.5 mcg INHALER IH SCH (22:55)
[2017-08-28] MEDS: cloNIDine HCL 0.1 MG TABLET PO SCH (22:56)
[2017-08-28] MEDS: THIAMINE HCL 100 MG TABLET (FP) PO SCH (22:56)
[2017-08-28 23:23] LABS: URINE APPEARANCE SLCLOUDY; URINE BILIRUBIN NEGATIVE (NEGATIVE); URINE BLOOD NEGATIVE (NEGATIVE); URINE COLOR YELLOW; URINE GLUCOSE (UA) NEGATIVE (NEGATIVE); URINE KETONE NEGATIVE (NEGATIVE); URINE NITRITE POSITIVE (NEGATIVE); URINE PROTEIN NEGATIVE (NEGATIVE); URINE UROBILINOGEN NEGATIVE mg/dL (0.2-1.0)
[2017-08-28 23:27] LABS: URINE BACTERIA MANY /hpf (NONE SEEN); URINE MUCUS RARE; URINE RBC <1 /hpf (0-3); YEAST FEW
[2017-08-29] MEDS: chlordiazePOXIDE HCL 25 MG CAPSULE PO SCH ×4 (08:41→22:16)
--- NOTE | 2017-08-29 09:32 | CONSULT ---
[facility] Psychiatric Consult - Data Date of interview: 08/29/17 Admission source: [facility] Identifying data: This is 57 years old female with history of Bipolar disorder intoxicated with: Heroin, Cracvk and Cocaine Substance Abuse History: - Smoking Cessation. Smoking history: Current every day smoker. Have you smoked in the past 12 months: Yes. Aproximately how many cigarettes per day: 20. Cigars Per Day: 0. Hx Chewing Tobacco Use: No. Initiated information on smoking cessation: Yes. 'Breaking Loose' booklet given : 08/28/17. - Substance & Tx. History. Hx Alcohol Use: Yes. Hx Substance Use : Yes. Substance Use Type: Alcohol, Cocaine, Heroin, Marijuana. Hx Substance Use Treatment: Yes ([facility] 07/18/17 to 07/22/17). - Substances Abused. Heroin. Route: Inhalation. Frequency: Daily. Amount used: 6-7 bags. Age of first use: 23. Date of Last Use: 08/26/17. Crack. Route: Smoking. Frequency: Daily. Amount used: $100-200. Age of first use: 25. Date of Last Use: 08/27/17. Alcohol. Route: Oral. Frequency: Daily. Amount used: 1 qt vodka. Age of first use: 25. Date of Last Use: 08/26/17. Marijuana/ Hashish. Route: Smoking. Frequency: Daily. Amount used: 1 blunt. Age of first use: 18. Date of Last Use: 08/27/17 Medical History: Patient reports HTN, GERD Psychiatric History: Patient reports history of Bipolar disorder, reports taking prior to admiossion: Seroquel 100mg po qhs. Paxil 20mg poqd Physical/Sexual Abuse/Trauma History: Denies Additional Comment: Seroquel 100mg po qhs. Paxil 20mg poqd Mental Status Exam - Mental Status Exam Alert and Oriented to: Person Cognitive Function: Fair Patient Appearance: Unkempt Mood: Sad Affect: Flat Patient Behavior: Sedated Speech Pattern: Delayed Voice Loudness: Mildly Soft/Quiet Thought Process: Circumstantial Thought Disorder: Being Controlled Hallucinations: Denies Suicidal Ideation: Denies Homicidal Ideation: Denies Insight/Judgement: Fair Sleep: Difficulty falling asleep Appetite: Fair Muscle strength/Tone: Mild Hypotonicity Gait/Station: Shuffling Additional Comments: Seroquel 100mg po qhs. Paxil 20mg poqd Psychiatric Findings - Problem List ([place] 1, 2,3) (1) Seizure Current Visit: Yes Status: Acute (2) Drug-induced mood disorder Current Visit: No Status: Acute (3) Use of cane as ambulatory aid Current Visit: No Status: Acute (4) Cannabis dependence, uncomplicated Current Visit: No Status: Chronic (5) Cocaine dependence Current Visit: No Status: Chronic Qualifiers: (6) Mild cognitive disorder Current Visit: No Status: Chronic (7) Opioid dependence with withdrawal Current Visit: No Status: Chronic - Initial Treatment Plan Initial Treatment Plan: Seroquel 100mg po qhs. Paxil 20mg poqd
[2017-08-29] MEDS ORDERED: METHADONE HCL 10 MG TABLET (FOR DETOX USE ONLY) PO ONE (10:00)
[2017-08-29 10:03] LABS: MCH 28.1 pg (25.7-33.7); MCHC 32.2 g/dl (32.0-36.0); MEAN CELL VOLUME 87.3 fl (80-96); MEAN PLT VOLUME 8.4 fl (7.5-11.1); PLATELET COUNT 262 K/MM3 (134-434); RDW 14.4 % (11.6-15.6); WHITE BLOOD COUNT 7.7 K/mm3 (4.0-10.0)
[2017-08-29] MEDS: PRENATAL VITAMINS W/ FOLIC ACID TABLET (FP) PO SCH (10:11)
[2017-08-29] MEDS: cloNIDine HCL 0.1 MG TABLET PO SCH ×2 (10:11→22:16)
[2017-08-29] MEDS: BUDESONIDE/FORMETEROL FUMARATE 80/4.5 mcg INHALER IH SCH ×2 (10:12→22:15)
[2017-08-29] MEDS: NICOTINE 21 MG/24 HOURS TOPICAL PATCH TD SCH (10:12)
[2017-08-29 10:28] LABS: ALBUMIN 3.2 g/dl (3.4-5.0); ALK PHOS 77 U/L (45-117); ANION GAP 5 (8-16); BILIRUBIN,TOTAL 0.4 mg/dL (0.2-1.0); CALCIUM 8.5 mg/dL (8.5-10.1); CO2 31 mmol/L (21-32); CREATININE 1.3 mg/dL (0.55-1.02); GLUCOSE,RANDOM 109 mg/dL (74-106); SGOT/AST 12 U/L (15-37); SGPT/ALT 15 U/L (12-78); TOT PROT 6.6 g/dl (6.4-8.2)
[2017-08-29] MEDS ORDERED: COLLOIDAL OATMEAL 1 BAR EACH TP PRN (10:50)
--- NOTE | 2017-08-29 10:55 | PN ---
[facility] CIWA - CIWA Score Nausea/Vomitin Muscle Tremors: 3 Anxiety: 2 Agitation: 2 Paroxysmal Sweats: 1-Minimal Palms Moist Orientation: 0-Oriented Tacttile Disturbances: 1-Very Mild Itch/Numbness Auditory Disturbances: 1-Very Mild Visual Disturbances: 1-Very Mild Sensitivity Headache: 2-Mild CIWA-Ar Total Score: 16 BHS COWS - Scale Resting Pulse: 1= [place] 81-100 Sweatin= Chills/Flushing Restless Observation: 3= Extraneous Movement Pupil Size: 2= Moderately Dilated Bone or Joint Aches: 2= Severe Diffuse Aches Runny Nose/ Eye Tearin= Runny Nose/Eyes GI Upset > 30mins: 2= Nausea/Diarrhea Tremor Observation of Outstretched Hands: 2= Slight Tremor Visible Yawning Observation: 1= 1-2x During Session Anxiety or Irritability: 2=Irritable/Anxious Goose Flesh Skin: 0=Smooth Skin COWS Score: 18 S Progress Note (SOAP) Subjective: alert,irritable,anxious,interrupted sleep,pain in the body and back,tremor Objective: 08/29/17 10:59 Vital Signs Temperature 98.0 F 08/29/17 10:00 Pulse Rate 84 08/29/17 10:00 Respiratory Rate 18 08/29/17 10:00 Blood Pressure 101/78 08/29/17 10:00 O2 Sat by Pulse Oximetry (%) ekg sinus bradycardia 58/min no chest pain,no sob,no dizziness Laboratory Last Values WBC 7.7 K/mm3 (4.0-10.0) D 08/29/17 07:00 RBC 4.40 M/mm3 (3.60-5.2) D 08/29/17 07:00 Hgb 12.4 GM/dL (10.7-15.3) D 08/29/17 07:00 Hct 38.5 % (32.4-45.2) D 08/29/17 07:00 MCV 87.3 fl (80-96) 08/29/17 07:00 MCH 28.1 pg (25.7-33.7) 08/29/17 07:00 MCHC 32.2 g/dl (32.0-36.0) 08/29/17 07:00 RDW 14.4 % (11.6-15.6) 08/29/17 07:00 Plt Count 262 K/MM3 (134-434) D 08/29/17 07:00 MPV 8.4 fl (7.5-11.1) 08/29/17 07:00 Sodium 140 mmol/L (136-145) 08/29/17 07:00 Potassium 3.9 mmol/L (3.5-5.1) 08/29/17 07:00 Chloride 104 mmol/L (98-107) 08/29/17 07:00 Carbon Dioxide 31 mmol/L (21-32) 08/29/17 07:00 Anion Gap 5 (8-16) L 08/29/17 07:00 BUN 14 mg/dL (7-18) D 08/29/17 07:00 Creatinine 1.3 mg/dL (0.55-1.02) H 08/29/17 07:00 Creat Clearance w eGFR 42.22 (>60) 08/29/17 07:00 Random Glucose 109 mg/dL (74-106) H 08/29/17 07:00 Calcium 8.5 mg/dL (8.5-10.1) 08/29/17 07:00 Total Bilirubin 0.4 mg/dL (0.2-1.0) 08/29/17 07:00 AST 12 U/L (15-37) L 08/29/17 07:00 ALT 15 U/L (12-78) 08/29/17 07:00 Alkaline Phosphatase 77 U/L (45-117) 08/29/17 07:00 Total Protein 6.6 g/dl (6.4-8.2) 08/29/17 07:00 Albumin 3.2 g/dl (3.4-5.0) L 08/29/17 07:00 Urine Color Yellow 08/28/17 Unknown Urine Appearance Slcloudy 08/28/17 Unknown Urine pH 6.0 (5.0-8.0) 08/28/17 Unknown Ur Specific [place] 1.012 (1.001-1.035) 08/28/17 Unknown Urine Protein Negative (NEGATIVE) 08/28/17 Unknown Urine Glucose (UA) Negative (NEGATIVE) 08/28/17 Unknown Urine Ketones Negative (NEGATIVE) 08/28/17 Unknown Urine Blood Negative (NEGATIVE) 08/28/17 Unknown Urine Nitrite Positive (NEGATIVE) 08/28/17 Unknown Urine Bilirubin Negative (NEGATIVE) 08/28/17 Unknown Urine Urobilinogen Negative mg/dL (0.2-1.0) 08/28/17 Unknown Urine RBC <1 /hpf (0-3) 08/28/17 Unknown Urine WBC 10-20 /hpf (3-5) 08/28/17 Unknown Ur Epithelial Cells Few /hpf (FEW) 08/28/17 Unknown Urine Bacteria Many /hpf (NONE SEEN) 08/28/17 Unknown Urine Mucus Rare 08/28/17 Unknown Urine Yeast Few 08/28/17 Unknown Assessment: 08/29/17 11:03 withdrawal symptom Plan: continue detox,encourage oral fluid
[2017-08-29] MEDS ORDERED: FLU VACCINE QUAD 60 MCG/0.5 ML (MDV 17-18) IM ONE (12:00)
[2017-08-29] MEDS: VITAMINS A AND D TOPICAL OINTMENT 60 GM TUBE TP SCH ×3 (13:26→19:28)
[2017-08-29] MEDS: PARoxetine HCL 20 MG TABLET (FP) PO SCH (13:26)
[2017-08-29 13:44] LABS: HIV 1 & 2 AB NEGATIVE; HIV 1 AGp24 NEGATIVE
[2017-08-29 17:34] LABS: URINE LEUK ESTERASE Negative (NEGATIVE)
[2017-08-29] MEDS: THIAMINE HCL 100 MG TABLET (FP) PO SCH (22:15)
[2017-08-29] MEDS: QUEtiapine FUMARATE 100 MG TABLET (FP) PO SCH (22:16)
[2017-08-30] MEDS: chlordiazePOXIDE HCL 25 MG CAPSULE PO SCH ×2 (06:18→10:20)
[2017-08-30] MEDS: VITAMINS A AND D TOPICAL OINTMENT 60 GM TUBE TP SCH ×4 (06:25→17:40)
[2017-08-30 09:49] LABS: URINE APPEARANCE SLCLOUDY; URINE BILIRUBIN NEGATIVE (NEGATIVE); URINE BLOOD NEGATIVE (NEGATIVE); URINE COLOR YELLOW; URINE GLUCOSE (UA) NEGATIVE (NEGATIVE); URINE KETONE NEGATIVE (NEGATIVE); URINE NITRITE POSITIVE (NEGATIVE); URINE PROTEIN NEGATIVE (NEGATIVE); URINE UROBILINOGEN NEGATIVE mg/dL (0.2-1.0)
[2017-08-30] MEDS ORDERED: METHADONE HCL 5 MG TABLET (FOR DETOX USE ONLY) PO ONE (10:00)
--- NOTE | 2017-08-30 10:02 | PN ---
[facility] CIWA - CIWA Score Nausea/Vomitin Muscle Tremors: 3 Anxiety: 3 Agitation: 3 Paroxysmal Sweats: 1-Minimal Palms Moist Orientation: 0-Oriented Tacttile Disturbances: 1-Very Mild Itch/Numbness Auditory Disturbances: 1-Very Mild Visual Disturbances: 0-None Headache: 2-Mild CIWA-Ar Total Score: 17 BHS COWS - Scale Resting Pulse: 1= [place] 81-100 Sweatin= Chills/Flushing Restless Observation: 3= Extraneous Movement Pupil Size: 1= Pupils >than Normal Bone or Joint Aches: 2= Severe Diffuse Aches Runny Nose/ Eye Tearin= Runny Nose/Eyes GI Upset > 30mins: 2= Nausea/Diarrhea Tremor Observation of Outstretched Hands: 2= Slight Tremor Visible Yawning Observation: 1= 1-2x During Session Anxiety or Irritability: 2=Irritable/Anxious Goose Flesh Skin: 0=Smooth Skin COWS Score: 17 [facility] Progress Note (SOAP) Subjective: alert,irritable,anxious,interrupted sleep,pain in the body and back Objective: 08/30/17 09:26 Vital Signs Temperature 96.3 F L 08/30/17 06:00 Pulse Rate 86 08/30/17 06:00 Respiratory Rate 18 08/30/17 06:00 Blood Pressure 99/73 08/30/17 06:00 O2 Sat by Pulse Oximetry (%) Laboratory Last Values WBC 7.7 K/mm3 (4.0-10.0) D 08/29/17 07:00 RBC 4.40 M/mm3 (3.60-5.2) D 08/29/17 07:00 Hgb 12.4 GM/dL (10.7-15.3) D 08/29/17 07:00 Hct 38.5 % (32.4-45.2) D 08/29/17 07:00 MCV 87.3 fl (80-96) 08/29/17 07:00 MCH 28.1 pg (25.7-33.7) 08/29/17 07:00 MCHC 32.2 g/dl (32.0-36.0) 08/29/17 07:00 RDW 14.4 % (11.6-15.6) 08/29/17 07:00 Plt Count 262 K/MM3 (134-434) D 08/29/17 07:00 MPV 8.4 fl (7.5-11.1) 08/29/17 07:00 Sodium 140 mmol/L (136-145) 08/29/17 07:00 Potassium 3.9 mmol/L (3.5-5.1) 08/29/17 07:00 Chloride 104 mmol/L (98-107) 08/29/17 07:00 Carbon Dioxide 31 mmol/L (21-32) 08/29/17 07:00 Anion Gap 5 (8-16) L 08/29/17 07:00 BUN 14 mg/dL (7-18) D 08/29/17 07:00 Creatinine 1.3 mg/dL (0.55-1.02) H 08/29/17 07:00 Creat Clearance w eGFR 42.22 (>60) 08/29/17 07:00 Random Glucose 109 mg/dL (74-106) H 08/29/17 07:00 Calcium 8.5 mg/dL (8.5-10.1) 08/29/17 07:00 Total Bilirubin 0.4 mg/dL (0.2-1.0) 08/29/17 07:00 AST 12 U/L (15-37) L 08/29/17 07:00 ALT 15 U/L (12-78) 08/29/17 07:00 Alkaline Phosphatase 77 U/L (45-117) 08/29/17 07:00 Total Protein 6.6 g/dl (6.4-8.2) 08/29/17 07:00 Albumin 3.2 g/dl (3.4-5.0) L 08/29/17 07:00 Urine Color Yellow 08/28/17 Unknown Urine Appearance Slcloudy 08/28/17 Unknown Urine pH 6.0 (5.0-8.0) 08/28/17 Unknown Ur Specific [place] 1.012 (1.001-1.035) 08/28/17 Unknown Urine Protein Negative (NEGATIVE) 08/28/17 Unknown Urine Glucose (UA) Negative (NEGATIVE) 08/28/17 Unknown Urine Ketones Negative (NEGATIVE) 08/28/17 Unknown Urine Blood Negative (NEGATIVE) 08/28/17 Unknown Urine Nitrite Positive (NEGATIVE) 08/28/17 Unknown Urine Bilirubin Negative (NEGATIVE) 08/28/17 Unknown Urine Urobilinogen Negative mg/dL (0.2-1.0) 08/28/17 Unknown Ur Leukocyte Esterase Negative (NEGATIVE) 08/28/17 Unknown Urine RBC <1 /hpf (0-3) 08/28/17 Unknown Urine WBC 10-20 /hpf (3-5) 08/28/17 Unknown Ur Epithelial Cells Few /hpf (FEW) 08/28/17 Unknown Urine Bacteria Many /hpf (NONE SEEN) 08/28/17 Unknown Urine Mucus Rare 08/28/17 Unknown Urine Yeast Few 08/28/17 Unknown RPR Titer Nonreactive (NONREACTIVE) 08/29/17 07:00 HIV 1&2 Antibody Screen Negative 08/29/17 07:00 HIV P24 Antigen Negative 08/29/17 07:00 Assessment: 08/30/17 09:27 withdrawal symptom Plan: continue detox,encourage oral fluid
[2017-08-30 10:04] LABS: URINE BACTERIA FEW /hpf (NONE SEEN); URINE HYALINE CAST 7 /lpf; URINE MUCUS RARE; URINE RBC <1 /hpf (0-3)
[2017-08-30] MEDS: PRENATAL VITAMINS W/ FOLIC ACID TABLET (FP) PO SCH (10:20)
[2017-08-30] MEDS: NICOTINE 21 MG/24 HOURS TOPICAL PATCH TD SCH (10:20)
[2017-08-30] MEDS: cloNIDine HCL 0.1 MG TABLET PO SCH ×2 (10:20→22:13)
[2017-08-30] MEDS: PARoxetine HCL 20 MG TABLET (FP) PO SCH (10:20)
[2017-08-30] MEDS: BUDESONIDE/FORMETEROL FUMARATE 80/4.5 mcg INHALER IH SCH ×2 (10:21→22:11)
[2017-08-30 11:29] LABS: CALCIUM 8.9 mg/dL (8.5-10.1); SGOT/AST 9 U/L (15-37)
[2017-08-30 11:33] LABS: ALBUMIN 3.5 g/dl (3.4-5.0); ALK PHOS 77 U/L (45-117); ANION GAP 12 (8-16); BILIRUBIN,TOTAL 0.2 mg/dL (0.2-1.0); CO2 25 mmol/L (21-32); CREATININE 2.3 mg/dL (0.55-1.02); GLUCOSE,RANDOM 107 mg/dL (74-106); SGPT/ALT 15 U/L (12-78); TOT PROT 6.9 g/dl (6.4-8.2)
[2017-08-30 13:41] LABS: URINE LEUK ESTERASE TRACE (NEGATIVE)
[2017-08-30] MEDS: chlordiazePOXIDE 5 MG CAPSULE PO SCH ×2 (17:44→23:48)
--- NOTE | 2017-08-30 18:30 | PN ---
BHS Progress Note Note: RECEIVED NURSE CALL THAT THE PATIENT HAS UNSTEADY GAIT FALL PRECAUTION WITH CANE FOR AMBULATION CONTINUE MONITOR
[2017-08-30] MEDS: THIAMINE HCL 100 MG TABLET (FP) PO SCH (22:11)
[2017-08-30] MEDS: QUEtiapine FUMARATE 100 MG TABLET (FP) PO SCH (22:12)
[2017-08-31] MEDS: VITAMINS A AND D TOPICAL OINTMENT 60 GM TUBE TP SCH ×4 (00:05→17:51)
[2017-08-31] MEDS: chlordiazePOXIDE 5 MG CAPSULE PO SCH ×2 (05:55→11:09)
--- NOTE | 2017-08-31 09:05 | PN ---
BHS Progress Note (SOAP) Subjective: alert,irritable,anxious,interrupted sleep,tremor,pain in the body Objective: 08/31/17 09:01 Vital Signs Temperature 97.1 F L 08/31/17 06:00 Pulse Rate 76 08/31/17 06:00 Respiratory Rate 18 08/31/17 06:00 Blood Pressure 107/51 08/31/17 06:00 O2 Sat by Pulse Oximetry (%) Laboratory Last Values WBC 7.7 K/mm3 (4.0-10.0) D 08/29/17 07:00 RBC 4.40 M/mm3 (3.60-5.2) D 08/29/17 07:00 Hgb 12.4 GM/dL (10.7-15.3) D 08/29/17 07:00 Hct 38.5 % (32.4-45.2) D 08/29/17 07:00 MCV 87.3 fl (80-96) 08/29/17 07:00 MCH 28.1 pg (25.7-33.7) 08/29/17 07:00 MCHC 32.2 g/dl (32.0-36.0) 08/29/17 07:00 RDW 14.4 % (11.6-15.6) 08/29/17 07:00 Plt Count 262 K/MM3 (134-434) D 08/29/17 07:00 MPV 8.4 fl (7.5-11.1) 08/29/17 07:00 Sodium 140 mmol/L (136-145) 08/30/17 07:00 Potassium 4.1 mmol/L (3.5-5.1) 08/30/17 07:00 Chloride 103 mmol/L (98-107) 08/30/17 07:00 Carbon Dioxide 25 mmol/L (21-32) 08/30/17 07:00 Anion Gap 12 (8-16) 08/30/17 07:00 BUN 32 mg/dL (7-18) H D 08/30/17 07:00 Creatinine 2.3 mg/dL (0.55-1.02) H D 08/30/17 07:00 Creat Clearance w eGFR 21.86 (>60) 08/30/17 07:00 Random Glucose 107 mg/dL (74-106) H 08/30/17 07:00 Calcium 8.9 mg/dL (8.5-10.1) 08/30/17 07:00 Total Bilirubin 0.2 mg/dL (0.2-1.0) D 08/30/17 07:00 AST 9 U/L (15-37) L D 08/30/17 07:00 ALT 15 U/L (12-78) 08/30/17 07:00 Alkaline Phosphatase 77 U/L (45-117) 08/30/17 07:00 Total Protein 6.9 g/dl (6.4-8.2) 08/30/17 07:00 Albumin 3.5 g/dl (3.4-5.0) 08/30/17 07:00 Urine Color Yellow 08/30/17 08:00 Urine Appearance Slcloudy 08/30/17 08:00 Urine pH 5.0 (5.0-8.0) 08/30/17 08:00 Ur Specific [place] 1.009 (1.001-1.035) 08/30/17 08:00 Urine Protein Negative (NEGATIVE) 08/30/17 08:00 Urine Glucose (UA) Negative (NEGATIVE) 08/30/17 08:00 Urine Ketones Negative (NEGATIVE) 08/30/17 08:00 Urine Blood Negative (NEGATIVE) 08/30/17 08:00 Urine Nitrite Positive (NEGATIVE) 08/30/17 08:00 Urine Bilirubin Negative (NEGATIVE) 08/30/17 08:00 Urine Urobilinogen Negative mg/dL (0.2-1.0) 08/30/17 08:00 Ur Leukocyte Esterase Trace (NEGATIVE) H 08/30/17 08:00 Urine RBC <1 /hpf (0-3) 08/30/17 08:00 Urine WBC 2-5 /hpf (3-5) 08/30/17 08:00 Ur Epithelial Cells Rare /hpf (FEW) 08/30/17 08:00 Urine Bacteria Few /hpf (NONE SEEN) 08/30/17 08:00 Hyaline Casts 7 /lpf 08/30/17 08:00 Urine Yeast Few 08/28/17 Unknown Urine Mucus Rare 08/30/17 08:00 RPR Titer Nonreactive (NONREACTIVE) 08/29/17 07:00 HIV 1&2 Antibody Screen Negative 08/29/17 07:00 HIV P24 Antigen Negative 08/29/17 07:00 Assessment: 08/31/17 09:06 withdrawal symptom Plan: continue detox,encourage oral fluid,repeat cmp in am
[2017-08-31] MEDS ORDERED: METHADONE HCL 5 MG TABLET (FOR DETOX USE ONLY) PO ONE (10:00)
[2017-08-31] MEDS: PRENATAL VITAMINS W/ FOLIC ACID TABLET (FP) PO SCH (10:09)
[2017-08-31] MEDS: cloNIDine HCL 0.1 MG TABLET PO SCH ×2 (10:10→22:21)
[2017-08-31] MEDS: NICOTINE 21 MG/24 HOURS TOPICAL PATCH TD SCH (10:10)
[2017-08-31] MEDS: PARoxetine HCL 20 MG TABLET (FP) PO SCH (10:10)
[2017-08-31] MEDS: BUDESONIDE/FORMETEROL FUMARATE 80/4.5 mcg INHALER IH SCH ×2 (11:32→22:20)
--- NOTE | 2017-08-31 12:04 | EKG ---
Test Reason : Blood Pressure : / mmHG Vent. Rate : 058 BPM Atrial Rate : 058 BPM P-R Int : 152 ms QRS Dur : 084 ms QT Int : 428 ms P-R-T Axes : 022 019 024 degrees QTc Int : 420 ms SINUS BRADYCARDIA WHEN COMPARED WITH ECG OF 18-JUL-2017 17:36, NO SIGNIFICANT CHANGE WAS FOUND Confirmed by RICHA RODRIGUEZ MD ([id number]) on 08/31/2017 12:04:19 PM Referred By: Confirmed By:RICHA RODRIGUEZ MD
[2017-08-31] MEDS: chlordiazePOXIDE HCL 10 MG CAPSULE PO SCH ×2 (17:50→22:21)
[2017-08-31] MEDS: QUEtiapine FUMARATE 100 MG TABLET (FP) PO SCH (22:21)
[2017-09-01] MEDS: THIAMINE HCL 100 MG TABLET (FP) PO SCH ×2 (00:02→22:11)
[2017-09-01] MEDS: VITAMINS A AND D TOPICAL OINTMENT 60 GM TUBE TP SCH ×4 (00:02→22:56)
[2017-09-01] MEDS: chlordiazePOXIDE HCL 10 MG CAPSULE PO SCH ×2 (06:13→10:19)
[2017-09-01] MEDS ORDERED: METHADONE HCL 10 MG TABLET (FOR DETOX USE ONLY) PO ONE (10:00)
[2017-09-01] MEDS: NICOTINE 21 MG/24 HOURS TOPICAL PATCH TD SCH (10:16)
[2017-09-01] MEDS: PARoxetine HCL 20 MG TABLET (FP) PO SCH (10:16)
[2017-09-01] MEDS: BUDESONIDE/FORMETEROL FUMARATE 80/4.5 mcg INHALER IH SCH ×2 (10:16→22:11)
[2017-09-01] MEDS: PRENATAL VITAMINS W/ FOLIC ACID TABLET (FP) PO SCH (10:16)
[2017-09-01] MEDS: cloNIDine HCL 0.1 MG TABLET PO SCH ×2 (10:16→22:56)
--- NOTE | 2017-09-01 10:17 | PN ---
[facility] Progress Note (SOAP) Subjective: alert,irritable,interrupted sleep,pain in the body Objective: 09/01/17 10:14 Vital Signs Temperature 96.8 F L 09/01/17 06:13 Pulse Rate 66 09/01/17 06:13 Respiratory Rate 16 09/01/17 06:13 Blood Pressure 125/82 09/01/17 06:13 O2 Sat by Pulse Oximetry (%) Laboratory Last Values WBC 7.7 K/mm3 (4.0-10.0) D 08/29/17 07:00 RBC 4.40 M/mm3 (3.60-5.2) D 08/29/17 07:00 Hgb 12.4 GM/dL (10.7-15.3) D 08/29/17 07:00 Hct 38.5 % (32.4-45.2) D 08/29/17 07:00 MCV 87.3 fl (80-96) 08/29/17 07:00 MCH 28.1 pg (25.7-33.7) 08/29/17 07:00 MCHC 32.2 g/dl (32.0-36.0) 08/29/17 07:00 RDW 14.4 % (11.6-15.6) 08/29/17 07:00 Plt Count 262 K/MM3 (134-434) D 08/29/17 07:00 MPV 8.4 fl (7.5-11.1) 08/29/17 07:00 Sodium 140 mmol/L (136-145) 08/30/17 07:00 Potassium 4.1 mmol/L (3.5-5.1) 08/30/17 07:00 Chloride 103 mmol/L (98-107) 08/30/17 07:00 Carbon Dioxide 25 mmol/L (21-32) 08/30/17 07:00 Anion Gap 12 (8-16) 08/30/17 07:00 BUN 32 mg/dL (7-18) H D 08/30/17 07:00 Creatinine 2.3 mg/dL (0.55-1.02) H D 08/30/17 07:00 Creat Clearance w eGFR 21.86 (>60) 08/30/17 07:00 Random Glucose 107 mg/dL (74-106) H 08/30/17 07:00 Calcium 8.9 mg/dL (8.5-10.1) 08/30/17 07:00 Total Bilirubin 0.2 mg/dL (0.2-1.0) D 08/30/17 07:00 AST 9 U/L (15-37) L D 08/30/17 07:00 ALT 15 U/L (12-78) 08/30/17 07:00 Alkaline Phosphatase 77 U/L (45-117) 08/30/17 07:00 Total Protein 6.9 g/dl (6.4-8.2) 08/30/17 07:00 Albumin 3.5 g/dl (3.4-5.0) 08/30/17 07:00 Urine Color Yellow 08/30/17 08:00 Urine Appearance Slcloudy 08/30/17 08:00 Urine pH 5.0 (5.0-8.0) 08/30/17 08:00 Ur Specific [place] 1.009 (1.001-1.035) 08/30/17 08:00 Urine Protein Negative (NEGATIVE) 08/30/17 08:00 Urine Glucose (UA) Negative (NEGATIVE) 08/30/17 08:00 Urine Ketones Negative (NEGATIVE) 08/30/17 08:00 Urine Blood Negative (NEGATIVE) 08/30/17 08:00 Urine Nitrite Positive (NEGATIVE) 08/30/17 08:00 Urine Bilirubin Negative (NEGATIVE) 08/30/17 08:00 Urine Urobilinogen Negative mg/dL (0.2-1.0) 08/30/17 08:00 Ur Leukocyte Esterase Trace (NEGATIVE) H 08/30/17 08:00 Urine RBC <1 /hpf (0-3) 08/30/17 08:00 Urine WBC 2-5 /hpf (3-5) 08/30/17 08:00 Ur Epithelial Cells Rare /hpf (FEW) 08/30/17 08:00 Urine Bacteria Few /hpf (NONE SEEN) 08/30/17 08:00 Hyaline Casts 7 /lpf 08/30/17 08:00 Urine Yeast Few 08/28/17 Unknown Urine Mucus Rare 08/30/17 08:00 RPR Titer Nonreactive (NONREACTIVE) 08/29/17 07:00 HIV 1&2 Antibody Screen Negative 08/29/17 07:00 HIV P24 Antigen Negative 08/29/17 07:00 Assessment: 09/01/17 10:15 withdrawal symptom Plan: continue detox,renal insufficiency,repeat cmp pending,discharge in am
[2017-09-01 11:23] LABS: ALBUMIN 3.5 g/dl (3.4-5.0); ALK PHOS 73 U/L (45-117); ANION GAP 10 (8-16); BILIRUBIN,TOTAL 0.4 mg/dL (0.2-1.0); CALCIUM 8.7 mg/dL (8.5-10.1); CO2 24 mmol/L (21-32); CREATININE 1.8 mg/dL (0.55-1.02); GLUCOSE,RANDOM 99 mg/dL (74-106); SGOT/AST 13 U/L (15-37); SGPT/ALT 15 U/L (12-78)
[2017-09-01] MEDS: QUEtiapine FUMARATE 100 MG TABLET (FP) PO SCH (22:11)
[2017-09-02] MEDS: VITAMINS A AND D TOPICAL OINTMENT 60 GM TUBE TP SCH (00:40)
[2017-09-02] MEDS ORDERED: METHADONE HCL 5 MG TABLET (FOR DETOX USE ONLY) PO ONE (06:00)
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
[2017-09-02 10:15] VITALS: BP 175/74; PULSE 72; TEMP 96
[2017-09-02] MEDS: PARoxetine HCL 20 MG TABLET (FP) PO SCH (12:16)
[2017-09-02] MEDS: PRENATAL VITAMINS W/ FOLIC ACID TABLET (FP) PO SCH (12:16)
[2017-09-02] MEDS: cloNIDine HCL 0.1 MG TABLET PO SCH (12:17)
[2017-09-02] MEDS: BUDESONIDE/FORMETEROL FUMARATE 80/4.5 mcg INHALER IH SCH (12:17)
== END 2017-09-02 13:00 | disposition home or self-care (01) | DRG 773 ==
LOC: YASAS 13:04 → Y6N 15:58
PROVIDERS: ADMIT Internal Medicine; ATTEND Internal Medicine
PROC: HZ2ZZZZ Detoxification Services for Substance Abuse Treatment (ICD-10-PCS; principal; 2017-08-28)
PROC: HZ2ZZZZ Detoxification Services for Substance Abuse Treatment (ICD-10-PCS; 2017-08-28)
DX: F11.23 Opioid dependence with withdrawal (principal); F10.230 Alcohol dependence with withdrawal, uncomplicated; F14.20 Cocaine dependence, uncomplicated; F12.20 Cannabis dependence, uncomplicated; F17.210 Nicotine dependence, cigarettes, uncomplicated; F31.9 Bipolar disorder, unspecified; F03.90 Unspecified dementia, unspecified severity, without behavioral disturbance, psychotic disturbance, mood disturbance, and anxiety; F06.8 Other specified mental disorders due to known physiological condition; J45.909 Unspecified asthma, uncomplicated; L30.9 Dermatitis, unspecified; R79.89 Other specified abnormal findings of blood chemistry; Z86.69 Personal history of other diseases of the nervous system and sense organs; Z86.79 Personal history of other diseases of the circulatory system
CPT/HCPCS: 36415; 80053; 81003; 81015; 85027; 86593; 87389; 90688; 93005; 93010; G0008

== ENCOUNTER 2017-10-18 10:31 | Inpatient (IN) | payer BC ==
[2017-10-18 11:38] VITALS: BMI 34.3
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
[2017-10-18] MEDS ORDERED: MENTHOL/PHENOL 1 EACH UD MM PRN (12:59)
[2017-10-18] MEDS ORDERED: P-EPHED 60MG/TRIPROLIDI 2.5MG TABLET PO PRN (12:59)
[2017-10-18] MEDS ORDERED: MAGNESIUM CITRATE 300 ML BOTTLE PO PRN (12:59)
[2017-10-18] MEDS ORDERED: MAGNESIUM HYDROX 2400MG/30ML ORAL SUSPENSION 30 ML CUP PO PRN (12:59)
[2017-10-18] MEDS ORDERED: IBUPROFEN 400 MG TABLET (FP) PO PRN (12:59)
[2017-10-18] MEDS ORDERED: NICOTINE POLACRILEX 4 MG GUM BUC PRN (12:59)
[2017-10-18] MEDS ORDERED: MAG HYDROX/AL HYDROX/SIMETH 30 ML UNIT-DOSE CUP PO PRN (12:59)
[2017-10-18] MEDS ORDERED: guaiFENesin/D-METHORPHAN HB 10 ML UNIT-DOSE CUPS PO PRN (12:59)
[2017-10-18] MEDS ORDERED: chlordiazePOXIDE HCL 25 MG CAPSULE PO PRN (12:59)
[2017-10-18] MEDS ORDERED: ACETAMINOPHEN 325 MG TABLET (FP) PO PRN (12:59)
[2017-10-18] MEDS ORDERED: LOPERAMIDE HCL 2 MG CAPSULE PO PRN (12:59)
[2017-10-18] MEDS ORDERED: ALBUTEROL SO4 18 GM HFA INHALER IH PRN (13:07)
[2017-10-18] MEDS ORDERED: chlordiazePOXIDE HCL 25 MG CAPSULE PO ONE (13:43)
[2017-10-18] MEDS ORDERED: METHADONE HCL 10 MG TABLET (FOR DETOX USE ONLY) PO ONE ×2 (13:44→23:00)
[2017-10-18] MEDS: NICOTINE 21 MG/24 HOURS TOPICAL PATCH TD SCH (15:16)
[2017-10-18] MEDS ORDERED: amLODIPine BESYLATE 5 MG TABLET (FP) PO ONE (15:26)
[2017-10-18 16:54] LABS: HEMOGLOBIN 11.4 GM/dL (10.7-15.3); MCH 28.8 pg (25.7-33.7); MCHC 32.6 g/dl (32.0-36.0); MEAN CELL VOLUME 88.4 fl (80-96); MEAN PLT VOLUME 9.8 fl (7.5-11.1); PLATELET COUNT 244 K/MM3 (134-434); RBC 3.97 M/mm3 (3.60-5.2); RDW 15.7 % (11.6-15.6); WHITE BLOOD COUNT 4.8 K/mm3 (4.0-10.0)
[2017-10-18] MEDS: chlordiazePOXIDE HCL 25 MG CAPSULE PO SCH ×2 (17:10→22:42)
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
[2017-10-18 17:17] LABS: ALBUMIN 3.1 g/dl (3.4-5.0); ANION GAP 2 (8-16); BLOOD UREA NITROGEN 20 mg/dL (7-18); CALCIUM 8.3 mg/dL (8.5-10.1); CHLORIDE 110 mmol/L (98-107); CO2 29 mmol/L (21-32); CREATININE 1.2 mg/dL (0.55-1.02); GLUCOSE,RANDOM 96 mg/dL (74-106); POTASSIUM 4.3 mmol/L (3.5-5.1); SGOT/AST 7 U/L (15-37); SGPT/ALT 15 U/L (12-78); SODIUM 141 mmol/L (136-145)
[2017-10-18 17:18] LABS: ALK PHOS 72 U/L (45-117); BILIRUBIN,TOTAL 0.5 mg/dL (0.2-1.0); TOT PROT 6.2 g/dl (6.4-8.2)
[2017-10-18 20:58] LABS: URINE APPEARANCE CLOUDY; URINE BILIRUBIN NEGATIVE (NEGATIVE); URINE BLOOD NEGATIVE (NEGATIVE); URINE COLOR YELLOW; URINE GLUCOSE (UA) NEGATIVE (NEGATIVE); URINE KETONE NEGATIVE (NEGATIVE); URINE LEUK ESTERASE NEGATIVE (NEGATIVE); URINE NITRITE NEGATIVE (NEGATIVE); URINE PROTEIN NEGATIVE (NEGATIVE); URINE UROBILINOGEN NEGATIVE mg/dL (0.2-1.0)
[2017-10-18] MEDS ORDERED: QUEtiapine FUMARATE 50 MG TABLET PO SCH (22:00)
[2017-10-18] MEDS: THIAMINE HCL 100 MG TABLET (FP) PO SCH (22:42)
[2017-10-18] MEDS: BUDESONIDE/FORMETEROL FUMARATE 80/4.5 mcg INHALER IH SCH (22:43)
[2017-10-19] MEDS: chlordiazePOXIDE HCL 25 MG CAPSULE PO SCH ×4 (06:08→22:36)
[2017-10-19] MEDS ORDERED: METHADONE HCL 10 MG TABLET (FOR DETOX USE ONLY) PO SCH (10:00)
[2017-10-19] MEDS: PRENATAL VITAMINS W/ FOLIC ACID TABLET (FP) PO SCH (10:58)
[2017-10-19] MEDS: BUDESONIDE/FORMETEROL FUMARATE 80/4.5 mcg INHALER IH SCH ×2 (10:58→22:35)
[2017-10-19] MEDS: NICOTINE 21 MG/24 HOURS TOPICAL PATCH TD SCH (10:58)
[2017-10-19] MEDS ORDERED: hydrOXYzine HCL 25 MG TABLET (FP) PO PRN (11:47)
[2017-10-19] MEDS ORDERED: COLLOIDAL OATMEAL 1 BAR EACH TP PRN (11:49)
[2017-10-19] MEDS ORDERED: cloNIDine HCL 0.1 MG TABLET PO PRN (11:50)
[2017-10-19] MEDS ORDERED: PNEUMOC 13-VAL CONJ-DIP CRM/PF 0.5 ML DISP.SYRIN IM ONE (12:00)
[2017-10-19] MEDS: VITAMINS A AND D TOPICAL OINTMENT 60 GM TUBE TP SCH ×2 (14:52→23:30)
--- NOTE | 2017-10-19 16:30 | PN ---
S CIWA - CIWA Score Nausea/Vomitin Muscle Tremors: 4-Moderate,w/Arms Extend Anxiety: 4-Mod. Anxious/Guarded Agitation: 4-Moderately Restless Paroxysmal Sweats: 3 Orientation: 0-Oriented Tacttile Disturbances: 1-Very Mild Itch/Numbness Auditory Disturbances: 0-None Visual Disturbances: 0-None Headache: 0-None Present CIWA-Ar Total Score: 19 S COWS - Scale Resting Pulse: 2= TN 101-120 Sweatin= Chills/Flushing Restless Observation: 3= Extraneous Movement Pupil Size: 0= Normal to Room Light Bone or Joint Aches: 2= Severe Diffuse Aches Runny Nose/ Eye Tearin= Runny Nose/Eyes GI Upset > 30mins: 1= Stomach Cramp Tremor Observation of Outstretched Hands: 2= Slight Tremor Visible Yawning Observation: 0= None Anxiety or Irritability: 2=Irritable/Anxious Goose Flesh Skin: 0=Smooth Skin COWS Score: 15 S Progress Note (SOAP) Subjective: Anxious, agitated, stomach cramps, diarrhea, vomiting, anxiety, interrupted sleep Objective: 10/19/17 16:30 Last Vital Signs Temp Pulse Resp BP Pulse Ox 96.9 F L 110 H 18 109/62 10/19/17 14:56 10/19/17 14:56 10/19/17 14:56 10/19/17 14:56 Laboratory Tests 10/18/17 10/18/17 10/18/17 13:00 13:00 13:00 WBC 4.8 D RBC 3.97 Hgb 11.4 Hct 35.0 MCV 88.4 MCH 28.8 MCHC 32.6 RDW 15.7 H Plt Count 244 MPV 9.8 D Sodium 141 Potassium 4.3 Chloride 110 H Carbon Dioxide 29 D Anion Gap 2 L BUN 20 H D Creatinine 1.2 H D Creat Clearance w eGFR 46.30 Random Glucose 96 Calcium 8.3 L Total Bilirubin 0.5 D AST 7 L D ALT 15 Alkaline Phosphatase 72 Total Protein 6.2 L Albumin 3.1 L Urine Color Urine Appearance Urine pH Ur Specific [place] Urine Protein Urine Glucose (UA) Urine Ketones Urine Blood Urine Nitrite Urine Bilirubin Urine Urobilinogen Ur Leukocyte Esterase RPR Titer Nonreactive 10/18/17 18:30 WBC RBC Hgb Hct MCV MCH MCHC RDW Plt Count MPV Sodium Potassium Chloride Carbon Dioxide Anion Gap BUN Creatinine Creat Clearance w eGFR Random Glucose Calcium Total Bilirubin AST ALT Alkaline Phosphatase Total Protein Albumin Urine Color Yellow Urine Appearance Cloudy Urine pH 6.0 Ur Specific [place] 1.014 Urine Protein Negative Urine Glucose (UA) Negative Urine Ketones Negative Urine Blood Negative Urine Nitrite Negative Urine Bilirubin Negative Urine Urobilinogen Negative Ur Leukocyte Esterase Negative RPR Titer Labs noted: prerenal azotemia Assessment: 10/19/17 16:32 Withdrawal symptoms Noted with prerenal azotemia Plan: Continue detox Prerenal azotemia: encouraged to drink lots of water, repeat BMP
--- NOTE | 2017-10-19 21:02 | PN ---
Psychiatric Progress Note Vital Signs: Vital Signs Period Temp Pulse Resp BP Sys/Begum Pulse Ox Last 24 Hr 96.9 F-98.2 F 62-110 16-18 109-155/62-88 Date of Session: 10/19/17 Chief Complaint:: "I dont' want to take seroquel for sleep. It's too strong." HPI: Pt. admitted to for heroin, cocaine, marijuana and alcohol dependence. ROS: Pt. alert and oriented. Visible on the unit. Current Medications: Active Medications Generic Name Dose Route Start Last Admin Trade Name Freq PRN Reason Stop Dose Admin Acetaminophen 650 mg 10/18/17 12:59 Tylenol - PO Q4H PRN FEVER OR PAIN Al Hydroxide/Mg Hydroxide 30 ml 10/18/17 12:59 Mylanta Oral Suspension - PO Q6H PRN DYSPEPSIA Albuterol Sulfate 2 puff 10/18/17 13:07 Ventolin Hfa Inhaler - IH Q4H PRN SHORT OF BREATH/WHEEZING Budesonide/Formoterol Fumarate 2 puff 10/18/17 22:00 10/19/17 10:58 Symbicort 80/4.5mcg - IH 2 puff BID EVY Administration Chlordiazepoxide HCl 25 mg 10/19/17 17:00 10/19/17 17:12 Librium - PO 10/20/17 11:01 25 mg [id number] EVY Administration Chlordiazepoxide HCl 15 mg 10/20/17 17:00 Librium - PO 10/21/17 11:01 [id number] Chlordiazepoxide HCl 10 mg 10/21/17 17:00 Librium - PO 10/22/17 11:01 [id number] EVY Chlordiazepoxide HCl 25 mg 10/18/17 12:59 10/19/17 14:53 Librium - PO 10/21/17 12:59 25 mg Q4H PRN Administration WITHDRAWAL(CONT SUBST) Clonidine 0.1 mg 10/19/17 11:50 Catapres - PO Q8H PRN ANXIETY Colloidal Oatmeal 1 applic 10/19/17 11:49 Aveeno Soap - TP DAILY PRN HYGEINE Eucalyptus/Menthol/Phenol/Sorbitol 1 each 10/18/17 12:59 Cepastat Lozenge - MM Q4H PRN SORE THROAT Guaifenesin 10 ml 10/18/17 12:59 Robitussin Dm - PO Q6H PRN COUGH Hydroxyzine HCl 25 mg 10/19/17 11:47 Atarax - PO Q6H PRN ANXIETY Ibuprofen 400 mg 10/18/17 12:59 Motrin - PO Q6H PRN SEVERE PAIN Loperamide HCl 4 mg 10/18/17 12:59 Imodium - PO Q6H PRN DIARRHEA Magnesium Citrate 300 ml 10/18/17 12:59 Citroma - PO Q48H PRN CONSTIPATION Magnesium Hydroxide 30 ml 10/18/17 12:59 Milk Of Magnesia - PO DAILY PRN CONSTIPATION Methadone HCl 15 mg 10/20/17 10:00 Dolophine - PO 10/21/17 10:01 DAILY EVY Methadone HCl 5 mg 10/23/17 06:00 Dolophine - PO 10/23/17 06:01 DAILY@0600 EVY Methadone HCl 10 mg 10/22/17 10:00 Dolophine - PO 10/22/17 10:01 DAILY EVY Nicotine 21 mg 10/18/17 13:44 10/19/17 10:58 Nicoderm Patch - TD 21 mg DAILY EVY Administration Nicotine Polacrilex 4 mg 10/18/17 12:59 Nicorette Gum - BUC Q2H PRN NICOTINE REPLACEMENT RX Multivit/Folic Acid/Iron 1 tab 10/19/17 10:00 10/19/17 10:58 Vitamins (Sjr) - PO 1 tab DAILY EVY Administration Pseudoephedrine/Triprolidine 1 combo 10/18/17 12:59 Actifed - PO TID PRN NASAL CONGESTION Thiamine HCl 100 mg 10/18/17 22:00 10/18/17 22:42 Vitamin B1 - PO 100 mg HS EVY Administration Vitamin A/Vitamin D 1 applic 10/19/17 11:45 10/19/17 14:52 Vitamin A & D Top Oint - TP 1 applic BID EVY Administration Zolpidem Tartrate 5 mg 10/19/17 22:00 Ambien - PO HS PRN INSOMNIA Medication(s) Change(s): Discontinue seroquel 50qhs and order Ambien 5mg qhs PRN fo insomnia. 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 Pt. requesting ambien instead of seroquel. Stating the seroquel made her feel tired this morning. Psychoeducation and sleep hygiene provided. Ambien 5qhs PRN ordered and seroquel 50mg discontinued. Verbal consent given. Benefits and side effects (sleep walking) discussed. Will continue to monitor patient. Total face to face time:: 25 Mental Status Exam - Mental Status Exam Alert and Oriented to: Time, Place, Person Cognitive Function: Good Patient Appearance: Unkempt Mood: Euthymic Affect: Mood Congruent Patient Behavior: Fatigued Speech Pattern: Delayed Voice Loudness: Moderately Soft/Quiet Thought Process: Goal Oriented Thought Disorder: Not Present Hallucinations: Denies Suicidal Ideation: Denies Homicidal Ideation: Denies Insight/Judgement: Poor Sleep: Poorly Appetite: Fair Muscle strength/Tone: Mild Hypertonicity Gait/Station: Antalgic Psychiatric Treatment Plan - Problem List (1) Alcohol dependence with uncomplicated withdrawal Current Visit: Yes (2) Opioid dependence with withdrawal Current Visit: Yes (3) Cocaine dependence Current Visit: Yes Qualifiers: Substance use status: uncomplicated Qualified Code(s): F14.20 - Cocaine dependence, uncomplicated (4) Cannabis dependence, uncomplicated Current Visit: Yes (5) Nicotine dependence Current Visit: Yes Qualifiers: Nicotine product type: cigarettes Substance use status: in withdrawal Qualified Code(s): F17.213 - Nicotine dependence, cigarettes, with withdrawal (6) Bipolar disorder Current Visit: Yes Comment: Self reports. (7) Insomnia Current Visit: Yes
[2017-10-19] MEDS ORDERED: ZOLPIDEM TARTRATE 5 MG TABLET PO PRN (22:00)
[2017-10-19] MEDS: THIAMINE HCL 100 MG TABLET (FP) PO SCH (22:35)
[2017-10-20] MEDS: chlordiazePOXIDE HCL 25 MG CAPSULE PO SCH ×2 (05:14→10:30)
[2017-10-20 10:18] LABS: BASO % 0.9 % (0-2.0); EOS % 2.9 % (0-4.5); HEMATOCRIT 32.9 % (32.4-45.2); HEMOGLOBIN 10.2 GM/dL (10.7-15.3); LYMPH % 31.3 % (8-40); MCH 27.8 pg (25.7-33.7); MCHC 31.1 g/dl (32.0-36.0); MEAN CELL VOLUME 89.4 fl (80-96); MEAN PLT VOLUME 9.6 fl (7.5-11.1); NEUT % 58.9 % (42.8-82.8); PLATELET COUNT 213 K/MM3 (134-434); RBC 3.67 M/mm3 (3.60-5.2); RDW 16.2 % (11.6-15.6); WHITE BLOOD COUNT 5.4 K/mm3 (4.0-10.0)
[2017-10-20] MEDS: METHADONE HCL 5 MG TABLET (FOR DETOX USE ONLY) PO SCH (10:29)
[2017-10-20] MEDS: PRENATAL VITAMINS W/ FOLIC ACID TABLET (FP) PO SCH (10:29)
[2017-10-20] MEDS: NICOTINE 21 MG/24 HOURS TOPICAL PATCH TD SCH (10:30)
[2017-10-20] MEDS: BUDESONIDE/FORMETEROL FUMARATE 80/4.5 mcg INHALER IH SCH ×2 (10:30→22:15)
[2017-10-20] MEDS: VITAMINS A AND D TOPICAL OINTMENT 60 GM TUBE TP SCH ×2 (10:30→22:16)
--- NOTE | 2017-10-20 11:33 | EKG ---
Test Reason : Blood Pressure : / mmHG Vent. Rate : 058 BPM Atrial Rate : 058 BPM P-R Int : 156 ms QRS Dur : 098 ms QT Int : 412 ms P-R-T Axes : 024 014 006 degrees QTc Int : 404 ms SINUS BRADYCARDIA MINIMAL VOLTAGE CRITERIA FOR LVH, MAY BE NORMAL VARIANT NONSPECIFIC ST ABNORMALITY ABNORMAL ECG WHEN COMPARED WITH ECG OF 28-AUG-2017 21:22, T WAVE INVERSION NO LONGER EVIDENT IN ANTERIOR LEADS QT HAS SHORTENED CLINICAL CORRELATION IS RECOMMENDED BASELINE ARTIFACT Confirmed by AYUSH PRINGLE, KENRICK ([id number]) on 10/20/2017 11:32:48 AM Referred By: Confirmed By:KENRICK PEACOCK MD
--- NOTE | 2017-10-20 14:41 | PN ---
[facility] CIWA - CIWA Score Nausea/Vomitin-Mild Nausea/No Vomiting Muscle Tremors: 3 Anxiety: 4-Mod. Anxious/Guarded Agitation: 4-Moderately Restless Paroxysmal Sweats: 3 Orientation: 0-Oriented Tacttile Disturbances: 1-Very Mild Itch/Numbness Auditory Disturbances: 0-None Visual Disturbances: 0-None Headache: 0-None Present CIWA-Ar Total Score: 16 BHS COWS - Scale Resting Pulse: 2= GA 101-120 Sweatin=Flushed/Facial Moisture Restless Observation: 1= Difficult to Sit Still Pupil Size: 0= Normal to Room Light Bone or Joint Aches: 1= Mild Discomfort Runny Nose/ Eye Tearin= Runny Nose/Eyes GI Upset > 30mins: 2= Nausea/Diarrhea Tremor Observation of Outstretched Hands: 2= Slight Tremor Visible Yawning Observation: 1= 1-2x During Session Anxiety or Irritability: 2=Irritable/Anxious Goose Flesh Skin: 0=Smooth Skin COWS Score: 15 S Progress Note (SOAP) Subjective: Anxiety,tremors,sweating,interrupted sleep,restless. Has hx of HTN non- compliant with meds Objective: 10/20/17 14:38 Vital Signs - 24 hr 10/19/17 10/19/17 10/19/17 14:56 17:58 22:00 Temperature 96.9 F L 98.1 F 98.2 F Pulse Rate 110 H 78 80 Respiratory 18 18 18 Rate Blood Pressure 109/62 136/80 123/81 10/20/17 10/20/17 10/20/17 06:00 11:10 14:10 Temperature 97.5 F L 98.6 F 97.5 F L Pulse Rate 68 103 H 77 Respiratory 18 18 18 Rate Blood Pressure 151/79 159/78 159/106 Laboratory Tests 10/18/17 10/18/17 10/18/17 13:00 13:00 13:00 WBC 4.8 D RBC 3.97 Hgb 11.4 Hct 35.0 MCV 88.4 MCH 28.8 MCHC 32.6 RDW 15.7 H Plt Count 244 MPV 9.8 D Neutrophils % Lymphocytes % Monocytes % Eosinophils % Basophils % Sodium 141 Potassium 4.3 Chloride 110 H Carbon Dioxide 29 D Anion Gap 2 L BUN 20 H D Creatinine 1.2 H D Creat Clearance w eGFR 46.30 Random Glucose 96 Calcium 8.3 L Total Bilirubin 0.5 D AST 7 L D ALT 15 Alkaline Phosphatase 72 Total Protein 6.2 L Albumin 3.1 L Urine Color Urine Appearance Urine pH Ur Specific [place] Urine Protein Urine Glucose (UA) Urine Ketones Urine Blood Urine Nitrite Urine Bilirubin Urine Urobilinogen Ur Leukocyte Esterase RPR Titer Nonreactive 10/18/17 10/20/17 18:30 08:00 WBC 5.4 RBC 3.67 Hgb 10.2 L D Hct 32.9 MCV 89.4 MCH 27.8 MCHC 31.1 L RDW 16.2 H Plt Count 213 MPV 9.6 Neutrophils % 58.9 Lymphocytes % 31.3 Monocytes % 6.0 Eosinophils % 2.9 Basophils % 0.9 Sodium Potassium Chloride Carbon Dioxide Anion Gap BUN Creatinine Creat Clearance w eGFR Random Glucose Calcium Total Bilirubin AST ALT Alkaline Phosphatase Total Protein Albumin Urine Color Yellow Urine Appearance Cloudy Urine pH 6.0 Ur Specific [place] 1.014 Urine Protein Negative Urine Glucose (UA) Negative Urine Ketones Negative Urine Blood Negative Urine Nitrite Negative Urine Bilirubin Negative Urine Urobilinogen Negative Ur Leukocyte Esterase Negative RPR Titer labs noted Assessment: 10/20/17 14:41 Withdrawal sx Plan: Continue detox Norvasc 10mg qd
[2017-10-20] MEDS: amLODIPine BESYLATE 10 MG TABLET (FP) PO SCH (15:49)
[2017-10-20] MEDS: chlordiazePOXIDE 5 MG CAPSULE PO SCH ×2 (17:49→22:16)
[2017-10-20] MEDS: THIAMINE HCL 100 MG TABLET (FP) PO SCH (22:16)
[2017-10-20] MEDS: ZOLPIDEM TARTRATE 10 MG TABLET (PARK CARE ONLY) PO PRN (23:36)
[2017-10-21] MEDS: chlordiazePOXIDE 5 MG CAPSULE PO SCH ×2 (07:28→10:35)
[2017-10-21] MEDS: PRENATAL VITAMINS W/ FOLIC ACID TABLET (FP) PO SCH (10:35)
[2017-10-21] MEDS: amLODIPine BESYLATE 10 MG TABLET (FP) PO SCH (10:35)
[2017-10-21] MEDS: BUDESONIDE/FORMETEROL FUMARATE 80/4.5 mcg INHALER IH SCH ×2 (10:36→22:43)
[2017-10-21] MEDS: METHADONE HCL 5 MG TABLET (FOR DETOX USE ONLY) PO SCH (10:36)
[2017-10-21] MEDS: NICOTINE 21 MG/24 HOURS TOPICAL PATCH TD SCH (10:36)
[2017-10-21] MEDS: VITAMINS A AND D TOPICAL OINTMENT 60 GM TUBE TP SCH ×2 (10:36→22:16)
--- NOTE | 2017-10-21 16:22 | PN ---
[facility] Progress Note (SOAP) Subjective: N, V tremors, sleepy Objective: 10/21/17 16:20 Vital Signs Temperature 95.6 F L 10/21/17 14:30 Pulse Rate 81 10/21/17 14:30 Respiratory Rate 18 10/21/17 14:30 Blood Pressure 117/88 10/21/17 14:30 O2 Sat by Pulse Oximetry (%) Laboratory Last Values WBC 5.4 K/mm3 (4.0-10.0) 10/20/17 08:00 RBC 3.67 M/mm3 (3.60-5.2) 10/20/17 08:00 Hgb 10.2 GM/dL (10.7-15.3) L D 10/20/17 08:00 Hct 32.9 % (32.4-45.2) 10/20/17 08:00 MCV 89.4 fl (80-96) 10/20/17 08:00 MCH 27.8 pg (25.7-33.7) 10/20/17 08:00 MCHC 31.1 g/dl (32.0-36.0) L 10/20/17 08:00 RDW 16.2 % (11.6-15.6) H 10/20/17 08:00 Plt Count 213 K/MM3 (134-434) 10/20/17 08:00 MPV 9.6 fl (7.5-11.1) 10/20/17 08:00 Neutrophils % 58.9 % (42.8-82.8) 10/20/17 08:00 Lymphocytes % 31.3 % (8-40) 10/20/17 08:00 Monocytes % 6.0 % (3.8-10.2) 10/20/17 08:00 Eosinophils % 2.9 % (0-4.5) 10/20/17 08:00 Basophils % 0.9 % (0-2.0) 10/20/17 08:00 Sodium 141 mmol/L (136-145) 10/18/17 13:00 Potassium 4.3 mmol/L (3.5-5.1) 10/18/17 13:00 Chloride 110 mmol/L (98-107) H 10/18/17 13:00 Carbon Dioxide 29 mmol/L (21-32) D 10/18/17 13:00 Anion Gap 2 (8-16) L 10/18/17 13:00 BUN 20 mg/dL (7-18) H D 10/18/17 13:00 Creatinine 1.2 mg/dL (0.55-1.02) H D 10/18/17 13:00 Creat Clearance w eGFR 46.30 (>60) 10/18/17 13:00 Random Glucose 96 mg/dL (74-106) 10/18/17 13:00 Calcium 8.3 mg/dL (8.5-10.1) L 10/18/17 13:00 Total Bilirubin 0.5 mg/dL (0.2-1.0) D 10/18/17 13:00 AST 7 U/L (15-37) L D 10/18/17 13:00 ALT 15 U/L (12-78) 10/18/17 13:00 Alkaline Phosphatase 72 U/L (45-117) 10/18/17 13:00 Total Protein 6.2 g/dl (6.4-8.2) L 10/18/17 13:00 Albumin 3.1 g/dl (3.4-5.0) L 10/18/17 13:00 Urine Color Yellow 10/18/17 18:30 Urine Appearance Cloudy 10/18/17 18:30 Urine pH 6.0 (5.0-8.0) 10/18/17 18:30 Ur Specific [place] 1.014 (1.001-1.035) 10/18/17 18:30 Urine Protein Negative (NEGATIVE) 10/18/17 18:30 Urine Glucose (UA) Negative (NEGATIVE) 10/18/17 18:30 Urine Ketones Negative (NEGATIVE) 10/18/17 18:30 Urine Blood Negative (NEGATIVE) 10/18/17 18:30 Urine Nitrite Negative (NEGATIVE) 10/18/17 18:30 Urine Bilirubin Negative (NEGATIVE) 10/18/17 18:30 Urine Urobilinogen Negative mg/dL (0.2-1.0) 10/18/17 18:30 Ur Leukocyte Esterase Negative (NEGATIVE) 10/18/17 18:30 RPR Titer Nonreactive (NONREACTIVE) 10/18/17 13:00 labs noted Assessment: 10/21/17 16:21 withdrawal sx Plan: continue detox
[2017-10-21] MEDS: chlordiazePOXIDE HCL 10 MG CAPSULE PO SCH ×2 (17:15→22:16)
[2017-10-21] MEDS: ZOLPIDEM TARTRATE 10 MG TABLET (PARK CARE ONLY) PO PRN (22:16)
[2017-10-21] MEDS: THIAMINE HCL 100 MG TABLET (FP) PO SCH (22:17)
[2017-10-22] MEDS: chlordiazePOXIDE HCL 10 MG CAPSULE PO SCH ×2 (05:52→10:39)
[2017-10-22] MEDS ORDERED: METHADONE HCL 10 MG TABLET (FOR DETOX USE ONLY) PO SCH (10:00)
[2017-10-22] MEDS: amLODIPine BESYLATE 10 MG TABLET (FP) PO SCH (10:39)
[2017-10-22] MEDS: PRENATAL VITAMINS W/ FOLIC ACID TABLET (FP) PO SCH (10:39)
[2017-10-22] MEDS: BUDESONIDE/FORMETEROL FUMARATE 80/4.5 mcg INHALER IH SCH ×2 (10:40→22:42)
[2017-10-22] MEDS: VITAMINS A AND D TOPICAL OINTMENT 60 GM TUBE TP SCH ×2 (10:40→22:43)
[2017-10-22] MEDS: NICOTINE 21 MG/24 HOURS TOPICAL PATCH TD SCH (10:40)
--- NOTE | 2017-10-22 12:41 | PN ---
S Progress Note (SOAP) Subjective: ALERT,IRRITABLE,ANXIOUS,INTERRUPTED SLEEP,TREMOR Objective: 10/22/17 12:39 Vital Signs Temperature 97 F L 10/22/17 10:00 Pulse Rate 90 10/22/17 10:00 Respiratory Rate 16 10/22/17 10:00 Blood Pressure 135/88 10/22/17 10:00 O2 Sat by Pulse Oximetry (%) EKG NSR Assessment: 10/22/17 12:40 WITHDRAWAL SYMPTOM Plan: CONTINUE DETOX,BACITRACIN OINTMENT BID LEFT WRIST
[2017-10-22] MEDS: THIAMINE HCL 100 MG TABLET (FP) PO SCH (22:43)
[2017-10-23 06:00] VITALS: BP 129/75; PULSE 75; TEMP 96.4
[2017-10-23] MEDS ORDERED: METHADONE HCL 5 MG TABLET (FOR DETOX USE ONLY) PO SCH (06:00)
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
[2017-10-23] MEDS: NICOTINE 21 MG/24 HOURS TOPICAL PATCH TD SCH (15:46)
[2017-10-23] MEDS: amLODIPine BESYLATE 10 MG TABLET (FP) PO SCH (15:46)
[2017-10-23] MEDS: PRENATAL VITAMINS W/ FOLIC ACID TABLET (FP) PO SCH (15:47)
[2017-10-23] MEDS: BUDESONIDE/FORMETEROL FUMARATE 80/4.5 mcg INHALER IH SCH (15:47)
[2017-10-23] MEDS: VITAMINS A AND D TOPICAL OINTMENT 60 GM TUBE TP SCH (15:47)
== END 2017-10-23 10:00 | disposition home or self-care (01) | DRG 773 ==
LOC: YASAS 10:31 → Y6N 13:03
PROVIDERS: ADMIT Internal Medicine; ATTEND Internal Medicine
PROC: HZ2ZZZZ Detoxification Services for Substance Abuse Treatment (ICD-10-PCS; principal; 2017-10-18)
DX: F11.23 Opioid dependence with withdrawal (principal); F10.230 Alcohol dependence with withdrawal, uncomplicated; F14.20 Cocaine dependence, uncomplicated; F12.20 Cannabis dependence, uncomplicated; F17.213 Nicotine dependence, cigarettes, with withdrawal; F19.24 Other psychoactive substance dependence with psychoactive substance-induced mood disorder; F31.9 Bipolar disorder, unspecified; G31.84 Mild cognitive impairment of uncertain or unknown etiology; G47.00 Insomnia, unspecified; M54.5 Low back pain; R79.89 Other specified abnormal findings of blood chemistry; D64.9 Anemia, unspecified; J43.9 Emphysema, unspecified; L30.9 Dermatitis, unspecified; I10 Essential (primary) hypertension; R26.2 Difficulty in walking, not elsewhere classified; Z99.89 Dependence on other enabling machines and devices; N28.9 Disorder of kidney and ureter, unspecified; Z86.79 Personal history of other diseases of the circulatory system; Z86.69 Personal history of other diseases of the nervous system and sense organs; Z91.011 Allergy to milk products; Z87.42 Personal history of other diseases of the female genital tract; S90.01XA Contusion of right ankle, initial encounter; W19.XXXA Unspecified fall, initial encounter; Y93.9 Activity, unspecified; Y92.9 Unspecified place or not applicable
CPT/HCPCS: 36415; 73610-TC-RT; 80053; 81003; 85025; 85027; 86593; 93005; 93010

== ENCOUNTER 2023-04-28 17:03 | Inpatient (IN) | payer OTHER ==
[2023-04-28 18:17] VITALS: BMI 23.7
[2023-04-28] MEDS ORDERED: ACETAMINOPHEN 325 MG TABLET (FP) PO PRN (18:43)
[2023-04-28] MEDS ORDERED: NALOXONE HCL 0.4 MG/ML VIAL IM PRN (18:43)
[2023-04-28] MEDS ORDERED: DICYCLOMINE HCL 10 MG CAPSULE PO PRN (18:43)
[2023-04-28] MEDS ORDERED: LOPERAMIDE HCL 2 MG CAPSULE PO PRN (18:43)
[2023-04-28] MEDS ORDERED: ONDANSETRON *ODT* 4 MG TABLET SL PRN (18:43)
[2023-04-28] MEDS ORDERED: BENZONATATE 200 MG CAPSULE PO PRN (18:43)
[2023-04-28] MEDS ORDERED: NALOXONE HCL (KLOXXADO) 8 MG SPRAY NS PRN (18:43)
[2023-04-28] MEDS ORDERED: BENZOCAINE/MENTHOL (CHLORASEPTIC ) LOZENGE MM PRN (18:43)
[2023-04-28] MEDS ORDERED: MAGNESIUM HYDROX 2400MG/30ML ORAL SUSPENSION 30 ML CUP PO PRN (18:43)
[2023-04-28] MEDS ORDERED: POLYETHYLENE GLYCOL (HEALTHYLAX) 3350 17 GM PACKET PO PRN (18:43)
[2023-04-28] MEDS ORDERED: BISMUTH SUBSALICYLATE 524 MG/30 ML PO PRN (18:43)
[2023-04-28] MEDS ORDERED: MAG HYDROX/AL HYDROX/SIMETH 30 ML UNIT-DOSE CUP PO PRN (18:43)
[2023-04-28] MEDS ORDERED: NICOTINE 10 MG CARTRIDGE (INHALER) IH PRN (18:43)
[2023-04-28] MEDS ORDERED: guaiFENesin 600 MG TABLET.ER (FP) PO PRN (18:43)
[2023-04-28] MEDS ORDERED: IBUPROFEN 400 MG TABLET (FP) PO PRN (18:43)
[2023-04-28] MEDS ORDERED: amLODIPine BESYLATE 5 MG TABLET (FP) ONE (19:32)
[2023-04-28] MEDS ORDERED: amLODIPine BESYLATE 5 MG TABLET (FP) PO SCH (19:45)
[2023-04-28] MEDS: hydrOXYzine PAMOATE 25 MG CAPSULE (FP) PO PRN (19:54)
[2023-04-28] MEDS: METHOCARBAMOL 500 MG TABLET PO PRN (19:54)
[2023-04-28] MEDS ORDERED: LISINOPRIL 20 MG TABLET PO ONE (21:59)
[2023-04-28] MEDS: THIAMINE HCL 100 MG TABLET (FP) PO SCH (22:40)
[2023-04-28] MEDS: MELATONIN 5 MG TABLETS PO SCH (22:40)
[2023-04-29] MEDS: METHOCARBAMOL 500 MG TABLET PO PRN (06:58)
[2023-04-29] MEDS: PRENATAL VITAMINS W/ FOLIC ACID TABLET (FP) PO SCH (09:07)
[2023-04-29] MEDS: amLODIPine BESYLATE 5 MG TABLET (FP) PO SCH (09:07)
[2023-04-29] MEDS ORDERED: methaDONE HCL 10 MG TABLET (FOR DETOX USE ONLY) PO ONE (09:51)
[2023-04-29] MEDS: cloNIDine HCL 0.1 MG TABLET PO PRN (10:45)
[2023-04-29 13:08] LABS: HEMATOCRIT 33.7 % (32.4-45.2); HEMOGLOBIN 10.5 GM/dL (10.7-15.3); MCH 27.9 pg (25.7-33.7); MCHC 31.1 g/dl (32.0-36.0); MEAN CELL VOLUME 89.6 fl (80-96); MEAN PLT VOLUME 9.5 fl (7.5-11.1); PLATELET COUNT 239 10^3/uL (134-434); RBC 3.76 M/mm3 (3.60-5.2); RDW 15.9 % (11.6-15.6); WHITE BLOOD COUNT 4.9 K/mm3 (4.0-10.0)
[2023-04-29 13:12] LABS: POTASSIUM 4.4 mmol/L (3.5-5.1)
[2023-04-29 13:21] LABS: ALBUMIN 3.1 g/dl (3.4-5.0)
[2023-04-29 13:24] LABS: CREATININE 1.5 mg/dL (0.55-1.3)
[2023-04-29 13:26] LABS: BILIRUBIN,TOTAL 0.3 mg/dL (0.2-1); TOT PROT 6.3 g/dl (6.4-8.2)
[2023-04-29] MEDS: MELATONIN 5 MG TABLETS PO SCH (21:21)
[2023-04-29] MEDS: THIAMINE HCL 100 MG TABLET (FP) PO SCH (21:21)
[2023-04-30] MEDS: amLODIPine BESYLATE 5 MG TABLET (FP) PO SCH (06:22)
[2023-04-30] MEDS: PRENATAL VITAMINS W/ FOLIC ACID TABLET (FP) PO SCH (09:54)
[2023-04-30] MEDS: hydrOXYzine PAMOATE 25 MG CAPSULE (FP) PO PRN (12:01)
[2023-04-30] MEDS: cloNIDine HCL 0.1 MG TABLET PO PRN (21:57)
[2023-04-30] MEDS: MELATONIN 5 MG TABLETS PO SCH (21:57)
[2023-04-30] MEDS: THIAMINE HCL 100 MG TABLET (FP) PO SCH (21:57)
[2023-04-30] MEDS: METHOCARBAMOL 500 MG TABLET PO PRN (21:57)
[2023-05-01] MEDS: amLODIPine BESYLATE 5 MG TABLET (FP) PO SCH (06:11)
[2023-05-01] MEDS: cloNIDine HCL 0.1 MG TABLET PO PRN (06:13)
[2023-05-01] MEDS: PRENATAL VITAMINS W/ FOLIC ACID TABLET (FP) PO SCH (09:46)
[2023-05-01] MEDS: hydrOXYzine PAMOATE 25 MG CAPSULE (FP) PO PRN (09:48)
[2023-05-01] MEDS ORDERED: methaDONE HCL 10 MG TABLET (FOR DETOX USE ONLY) PO ONE (10:00)
[2023-05-01] MEDS: MELATONIN 5 MG TABLETS PO SCH (22:06)
[2023-05-01] MEDS: THIAMINE HCL 100 MG TABLET (FP) PO SCH (22:06)
[2023-05-01] MEDS: METHOCARBAMOL 500 MG TABLET PO PRN (22:06)
[2023-05-02] MEDS: IBUPROFEN 600 MG TABLET (FP) PO PRN ×2 (03:55→14:19)
[2023-05-02] MEDS: METHOCARBAMOL 500 MG TABLET PO PRN ×3 (03:55→22:01)
[2023-05-02] MEDS: hydrOXYzine PAMOATE 25 MG CAPSULE (FP) PO PRN ×2 (03:55→22:01)
[2023-05-02] MEDS: amLODIPine BESYLATE 5 MG TABLET (FP) PO SCH (06:21)
[2023-05-02] MEDS: PRENATAL VITAMINS W/ FOLIC ACID TABLET (FP) PO SCH (09:55)
[2023-05-02] MEDS: MELATONIN 5 MG TABLETS PO SCH (22:02)
[2023-05-02] MEDS: THIAMINE HCL 100 MG TABLET (FP) PO SCH (22:02)
[2023-05-03] MEDS: METHOCARBAMOL 500 MG TABLET PO PRN ×3 (05:36→22:22)
[2023-05-03] MEDS: hydrOXYzine PAMOATE 25 MG CAPSULE (FP) PO PRN ×2 (05:36→22:22)
[2023-05-03] MEDS: amLODIPine BESYLATE 5 MG TABLET (FP) PO SCH (06:36)
[2023-05-03] MEDS ORDERED: methaDONE HCL 10 MG TABLET (FOR DETOX USE ONLY) PO ONE (10:00)
[2023-05-03] MEDS: PRENATAL VITAMINS W/ FOLIC ACID TABLET (FP) PO SCH (10:52)
[2023-05-03] MEDS: MELATONIN 5 MG TABLETS PO SCH (22:22)
[2023-05-03] MEDS: THIAMINE HCL 100 MG TABLET (FP) PO SCH (22:22)
[2023-05-04] MEDS: METHOCARBAMOL 500 MG TABLET PO PRN (05:53)
[2023-05-04] MEDS: amLODIPine BESYLATE 5 MG TABLET (FP) PO SCH (07:10)
[2023-05-04 09:00] VITALS: RESP 18
[2023-05-04] MEDS: PRENATAL VITAMINS W/ FOLIC ACID TABLET (FP) PO SCH (10:37)
[2023-05-04 13:39] VITALS: BP 152/79; PULSE 64; TEMP 97.3
== END 2023-05-04 15:45 | disposition other institution (70) | DRG 773 ==
LOC: YASAS 17:03 → Y3N 18:55
PROVIDERS: ADMIT Allergy & Immunology; ATTEND Surgery
PROC: HZ2ZZZZ Detoxification Services for Substance Abuse Treatment (ICD-10-PCS; principal; 2023-04-28)
DX: F11.23 Opioid dependence with withdrawal (principal); F10.20 Alcohol dependence, uncomplicated; F14.20 Cocaine dependence, uncomplicated; F12.20 Cannabis dependence, uncomplicated; F17.210 Nicotine dependence, cigarettes, uncomplicated; I10 Essential (primary) hypertension; J44.9 Chronic obstructive pulmonary disease, unspecified; K21.9 Gastro-esophageal reflux disease without esophagitis; M54.50 Low back pain, unspecified; G89.29 Other chronic pain; Z96.652 Presence of left artificial knee joint; R60.0 Localized edema; Z99.89 Dependence on other enabling machines and devices
CPT/HCPCS: 36415; 80053; 85027; 86780; 87635; 93005; 93010; Q0162

== ENCOUNTER 2023-05-10 02:10 | Observation (INO) | payer OTHER ==
[2023-05-10] MEDS ORDERED: ACETAMINOPHEN 500 MG TABLET (FP) PO ONE (02:42)
[2023-05-10 03:53] LABS: BASO % 1.4 % (0-2.0); EOS % 4.2 % (0-4.5); HEMATOCRIT 32.9 % (32.4-45.2); HEMOGLOBIN 10.9 GM/dL (10.7-15.3); MCH 28.4 pg (25.7-33.7); MEAN PLT VOLUME 8.2 fl (7.5-11.1); MONO % 7.5 % (3.8-10.2); NEUT % 47.9 % (42.8-82.8); PLATELET COUNT 260 10^3/uL (134-434); RBC 3.83 M/mm3 (3.60-5.2); RDW 15.6 % (11.6-15.6); WHITE BLOOD COUNT 5.2 K/mm3 (4.0-10.0)
[2023-05-10 04:13] LABS: POTASSIUM 4.8 mmol/L (3.5-5.1)
[2023-05-10 04:16] LABS: ALBUMIN 3.2 g/dl (3.4-5.0); BLOOD UREA NITROGEN 47.4 mg/dL (7-18); CALCIUM 9.4 mg/dL (8.5-10.1); MAGNESIUM 2.3 mg/dL (1.8-2.4)
[2023-05-10 04:19] LABS: CREATININE 1.6 mg/dL (0.55-1.3); PHOSPHOROUS 4.2 mg/dL (2.5-4.9)
[2023-05-10 04:21] LABS: BILIRUBIN,TOTAL 0.2 mg/dL (0.2-1); TOT PROT 6.6 g/dl (6.4-8.2)
[2023-05-10] MEDS ORDERED: ACETAMINOPHEN 500 MG TABLET (FP) ONE (04:49)
[2023-05-10 06:30] LABS: URINE APPEARANCE CLEAR; URINE BILIRUBIN NEGATIVE (NEGATIVE); URINE COLOR YELLOW; URINE GLUCOSE (UA) NEGATIVE (NEGATIVE); URINE KETONE NEGATIVE (NEGATIVE); URINE LEUK ESTERASE NEGATIVE (NEGATIVE); URINE NITRITE NEGATIVE (NEGATIVE); URINE PROTEIN NEGATIVE (NEGATIVE); URINE UROBILINOGEN 0.2 mg/dL (0.2-1.0)
[2023-05-10] MEDS ORDERED: ACETAMINOPHEN 325 MG TABLET (FP) PO PRN ×2 (07:54→18:15)
[2023-05-10] MEDS ORDERED: LIDOCAINE 5% TOPICAL PATCH TP PRN (08:05)
[2023-05-10] MEDS ORDERED: ALBUTEROL SO4 HFA INHALER IH PRN (08:06)
[2023-05-10] MEDS ORDERED: ONDANSETRON 4 MG/2 ML VIAL ONE (08:33)
[2023-05-10] MEDS ORDERED: ACETAMINOPHEN 325 MG TABLET (FP) ONE (08:33)
[2023-05-10] MEDS ORDERED: NICOTINE 14 MG/24 HOURS TOPICAL PATCH TD ONE (08:33)
[2023-05-10] MEDS ORDERED: SUVOREXANT 10 MG TABLET PO PRN (08:45)
[2023-05-10] MEDS ORDERED: LACTATED RINGERS SOLUTION 1,000 ML/1,000 ML INFUS.BAG IV SCH (08:45)
[2023-05-10] MEDS ORDERED: QUEtiapine FUMARATE 50 MG TABLET PO PRN (08:49)
[2023-05-10 09:00] LABS: METHADONE, UR NEGATIVE (NEGATIVE); OPIATES, URI NEGATIVE (NEGATIVE); PHENCYCLIDINE,URINE NEGATIVE (NEGATIVE); URINE BARBITURATES NEGATIVE (NEGATIVE); URINE BENZODIAZEPINES NEGATIVE (NEGATIVE)
[2023-05-10 09:01] LABS: COCAINE, UR NEGATIVE (NEGATIVE); URINE AMPHETAMINES NEGATIVE (NEGATIVE)
[2023-05-10] MEDS ORDERED: POLYETHYLENE GLYCOL (HEALTHYLAX) 3350 17 GM PACKET ONE (09:41)
[2023-05-10] MEDS ORDERED: SENNOSIDES 8.6MG TABLET (FP) PO ONE (09:41)
[2023-05-10] MEDS: ONDANSETRON 4 MG/2 ML VIAL IVPUSH PRN ×2 (09:55→20:10)
[2023-05-10] MEDS: SENNOSIDES 8.6MG TABLET (FP) PO PRN ×2 (09:58→22:44)
[2023-05-10] MEDS: NICOTINE 14 MG/24 HOURS TOPICAL PATCH TD SCH (09:59)
[2023-05-10] MEDS: POLYETHYLENE GLYCOL (HEALTHYLAX) 3350 17 GM PACKET PO SCH (09:59)
[2023-05-10] MEDS ORDERED: ENOXAPARIN NA (PORCINE) 40 MG/0.4 ML DISP.SYRIN SQ SCH (10:00)
[2023-05-10] MEDS ORDERED: amLODIPine BESYLATE 5 MG TABLET (FP) PO SCH (10:30)
[2023-05-10] MEDS ORDERED: THIAMINE HCL 100 MG TABLET (FP) ONE (12:07)
[2023-05-10] MEDS ORDERED: hydrOXYzine PAMOATE 25 MG CAPSULE (FP) PO ONE ×2 (12:07→12:14)
[2023-05-10] MEDS ORDERED: amLODIPine BESYLATE 5 MG TABLET (FP) ONE (12:07)
[2023-05-10] MEDS ORDERED: FOLIC ACID 1 MG TABLET (FP) ONE (12:08)
[2023-05-10] MEDS: hydrOXYzine PAMOATE 25 MG CAPSULE (FP) PO PRN (12:15)
[2023-05-10] MEDS: FOLIC ACID 1 MG TABLET (FP) PO SCH (12:15)
[2023-05-10] MEDS: THIAMINE HCL 100 MG TABLET (FP) PO SCH (12:15)
[2023-05-10] MEDS ORDERED: MAG HYDROX/AL HYDROX/SIMETH 30 ML UNIT-DOSE CUP PO PRN (14:03)
[2023-05-10] MEDS ORDERED: MAG HYDROX/AL HYDROX/SIMETH 30 ML UNIT-DOSE CUP ONE (14:47)
[2023-05-10] MEDS ORDERED: HEPARIN NA (PORCINE) 5,000 UNITS/ML 1ML VIAL ONE (14:47)
[2023-05-10] MEDS ORDERED: FAMOTIDINE 20 MG TABLET ONE (14:47)
[2023-05-10] MEDS: HEPARIN NA (PORCINE) 5,000 UNITS/ML 1ML VIAL SQ SCH ×2 (14:54→22:45)
[2023-05-10] MEDS: FAMOTIDINE 20 MG TABLET PO SCH (14:54)
[2023-05-10] MEDS ORDERED: amLODIPine BESYLATE 5 MG TABLET (FP) PO ONE ×2 (14:55→22:42)
[2023-05-10 18:03] VITALS: BMI 21.9
[2023-05-10] MEDS ORDERED: traMADol HCL 50 MG TABLET PO PRN (18:14)
[2023-05-10] MEDS ORDERED: ACETAMINOPHEN 1000 MG/100 ML BAG IVPB ONE (19:09)
[2023-05-10] MEDS ORDERED: MINERAL OIL ENEMA 133 ML ENEMA PR ONE (19:36)
[2023-05-10] MEDS ORDERED: POLYETHYLENE GLYCOL (HEALTHYLAX) 3350 17 GM PACKET PO ONE (19:45)
[2023-05-10] MEDS: QUEtiapine FUMARATE 25 MG TABLET PO PRN ×2 (22:00→22:44)
[2023-05-10] MEDS ORDERED: MELATONIN 5 MG TABLETS PO SCH (22:00)
[2023-05-10] MEDS: MELATONIN 5 MG TABLETS PO PRN (22:44)
[2023-05-10] MEDS: LIDOCAINE PATCH REMOVAL MC SCH (22:45)
[2023-05-11] MEDS ORDERED: hydrALAZINE HCL 20 MG/ML VIAL IVPUSH ONE (00:15)
[2023-05-11] MEDS: HEPARIN NA (PORCINE) 5,000 UNITS/ML 1ML VIAL SQ SCH ×3 (06:19→21:15)
[2023-05-11] MEDS: amLODIPine BESYLATE 5 MG TABLET (FP) PO SCH (10:39)
[2023-05-11] MEDS: NICOTINE 14 MG/24 HOURS TOPICAL PATCH TD SCH (11:00)
[2023-05-11] MEDS: THIAMINE HCL 100 MG TABLET (FP) PO SCH (11:00)
[2023-05-11] MEDS: FOLIC ACID 1 MG TABLET (FP) PO SCH (11:00)
[2023-05-11] MEDS: FAMOTIDINE 20 MG TABLET PO SCH (11:00)
[2023-05-11] MEDS: POLYETHYLENE GLYCOL (HEALTHYLAX) 3350 17 GM PACKET PO SCH (11:00)
[2023-05-11] MEDS ORDERED: HYDROCHLOROTHIAZIDE 12.5 MG CAPSULE (FP) PO SCH (13:30)
[2023-05-11 15:15] LABS: HEMATOCRIT 41.7 % (32.4-45.2); HEMOGLOBIN 13.9 GM/dL (10.7-15.3); MCH 28.2 pg (25.7-33.7); MCHC 33.3 g/dl (32.0-36.0); MEAN CELL VOLUME 84.8 fl (80-96); MEAN PLT VOLUME 8.2 fl (7.5-11.1); PLATELET COUNT 347 10^3/uL (134-434); RBC 4.92 M/mm3 (3.60-5.2); RDW 15.3 % (11.6-15.6); WHITE BLOOD COUNT 6.3 K/mm3 (4.0-10.0)
[2023-05-11 15:31] LABS: POTASSIUM 4.9 mmol/L (3.5-5.1)
[2023-05-11 15:33] LABS: BLOOD UREA NITROGEN 39.7 mg/dL (7-18)
[2023-05-11 15:34] LABS: MAGNESIUM 2.6 mg/dL (1.8-2.4)
[2023-05-11 15:37] LABS: CREATININE 1.7 mg/dL (0.55-1.3); PHOSPHOROUS 5.6 mg/dL (2.5-4.9)
[2023-05-11 15:38] LABS: TOT PROT 8.1 g/dl (6.4-8.2)
[2023-05-11 15:40] LABS: BILIRUBIN,TOTAL 0.7 mg/dL (0.2-1)
[2023-05-11] MEDS: QUEtiapine FUMARATE 25 MG TABLET PO PRN (21:14)
[2023-05-11] MEDS: hydrALAZINE HCL 25 MG TABLET (FP) PO SCH (22:43)
[2023-05-11] MEDS: LIDOCAINE PATCH REMOVAL MC SCH (22:46)
[2023-05-12] MEDS: HEPARIN NA (PORCINE) 5,000 UNITS/ML 1ML VIAL SQ SCH ×3 (05:39→21:36)
[2023-05-12] MEDS: hydrALAZINE HCL 25 MG TABLET (FP) PO SCH ×3 (05:41→21:37)
[2023-05-12] MEDS ORDERED: ASPIRIN 81 MG CHEWABLE TABLETS PO SCH (10:00)
[2023-05-12] MEDS: POLYETHYLENE GLYCOL (HEALTHYLAX) 3350 17 GM PACKET PO SCH ×2 (10:12→21:42)
[2023-05-12] MEDS: THIAMINE HCL 100 MG TABLET (FP) PO SCH (10:12)
[2023-05-12] MEDS: FAMOTIDINE 20 MG TABLET PO SCH (10:12)
[2023-05-12] MEDS: amLODIPine BESYLATE 5 MG TABLET (FP) PO SCH (10:12)
[2023-05-12] MEDS: LOSARTAN POTASSIUM 50 MG TABLET PO SCH (10:12)
[2023-05-12] MEDS: FOLIC ACID 1 MG TABLET (FP) PO SCH (10:12)
[2023-05-12] MEDS: NICOTINE 14 MG/24 HOURS TOPICAL PATCH TD SCH (10:12)
[2023-05-12 10:24] LABS: HEMATOCRIT 39.8 % (32.4-45.2); HEMOGLOBIN 13.8 GM/dL (10.7-15.3); MCH 29.1 pg (25.7-33.7); MCHC 34.8 g/dl (32.0-36.0); MEAN CELL VOLUME 83.5 fl (80-96); MEAN PLT VOLUME 8.6 fl (7.5-11.1); PLATELET COUNT 366 10^3/uL (134-434); RBC 4.76 M/mm3 (3.60-5.2); RDW 15.4 % (11.6-15.6); WHITE BLOOD COUNT 4.6 K/mm3 (4.0-10.0)
[2023-05-12 10:38] LABS: POTASSIUM 4.9 mmol/L (3.5-5.1)
[2023-05-12 10:45] LABS: BLOOD UREA NITROGEN 46.2 mg/dL (7-18)
[2023-05-12 10:46] LABS: BILIRUBIN,TOTAL 0.8 mg/dL (0.2-1)
[2023-05-12 10:49] LABS: CREATININE 1.8 mg/dL (0.55-1.3); PHOSPHOROUS 5.8 mg/dL (2.5-4.9)
[2023-05-12] MEDS ORDERED: METOCLOPRAMIDE HCL INJECTION 10 MG/2 ML VIAL IVPUSH PRN (18:50)
[2023-05-12] MEDS ORDERED: SODIUM CHLORIDE 1,000 ML IV SCH (19:00)
[2023-05-12] MEDS: SENNOSIDES 8.6MG TABLET (FP) PO SCH ×2 (21:37→21:40)
[2023-05-12] MEDS: QUEtiapine FUMARATE 25 MG TABLET PO PRN (21:41)
[2023-05-12] MEDS: LIDOCAINE PATCH REMOVAL MC SCH (21:42)
[2023-05-13] MEDS: HEPARIN NA (PORCINE) 5,000 UNITS/ML 1ML VIAL SQ SCH ×3 (05:29→21:24)
[2023-05-13] MEDS: hydrALAZINE HCL 25 MG TABLET (FP) PO SCH ×3 (05:30→21:24)
[2023-05-13] MEDS: SENNOSIDES 8.6MG TABLET (FP) PO SCH ×2 (09:25→21:28)
[2023-05-13] MEDS: POLYETHYLENE GLYCOL (HEALTHYLAX) 3350 17 GM PACKET PO SCH ×2 (09:25→21:28)
[2023-05-13] MEDS: amLODIPine BESYLATE 5 MG TABLET (FP) PO SCH (09:26)
[2023-05-13] MEDS: THIAMINE HCL 100 MG TABLET (FP) PO SCH (09:26)
[2023-05-13] MEDS: FOLIC ACID 1 MG TABLET (FP) PO SCH (09:26)
[2023-05-13] MEDS: FAMOTIDINE 20 MG TABLET PO SCH (09:26)
[2023-05-13] MEDS: NICOTINE 14 MG/24 HOURS TOPICAL PATCH TD SCH (09:26)
[2023-05-13] MEDS: LOSARTAN POTASSIUM 50 MG TABLET PO SCH (09:26)
[2023-05-13 09:38] LABS: HEMATOCRIT 42.5 % (32.4-45.2); HEMOGLOBIN 13.8 GM/dL (10.7-15.3); MCH 28.4 pg (25.7-33.7); MCHC 32.6 g/dl (32.0-36.0); MEAN CELL VOLUME 87.2 fl (80-96); MEAN PLT VOLUME 9.2 fl (7.5-11.1); PLATELET COUNT 314 10^3/uL (134-434); RBC 4.87 M/mm3 (3.60-5.2); RDW 15.2 % (11.6-15.6)
[2023-05-13 09:43] LABS: POTASSIUM 4.8 mmol/L (3.5-5.1)
[2023-05-13] MEDS ORDERED: ONDANSETRON *ODT* 4 MG TABLET SL PRN (09:44)
[2023-05-13 09:59] LABS: CALCIUM 9.5 mg/dL (8.5-10.1)
[2023-05-13 10:00] LABS: BLOOD UREA NITROGEN 58.8 mg/dL (7-18); MAGNESIUM 3.4 mg/dL (1.8-2.4)
[2023-05-13 10:02] LABS: CREATININE 2.1 mg/dL (0.55-1.3); PHOSPHOROUS 5.5 mg/dL (2.5-4.9)
[2023-05-13 10:03] LABS: TOT PROT 7.8 g/dl (6.4-8.2)
[2023-05-13 10:05] LABS: BILIRUBIN,TOTAL 0.6 mg/dL (0.2-1)
[2023-05-13] MEDS ORDERED: SODIUM CHLORIDE 0.9% 500 ML INFUS.BAG IV ONE (21:07)
[2023-05-13] MEDS: QUEtiapine FUMARATE 100 MG TABLET (FP) PO PRN (21:24)
[2023-05-13] MEDS: LIDOCAINE PATCH REMOVAL MC SCH (21:28)
[2023-05-14] MEDS: hydrALAZINE HCL 25 MG TABLET (FP) PO SCH ×2 (05:48→15:08)
[2023-05-14] MEDS: HEPARIN NA (PORCINE) 5,000 UNITS/ML 1ML VIAL SQ SCH ×3 (05:48→21:08)
[2023-05-14] MEDS ORDERED: REGADENOSON 0.4 MG/5 ML PRE-FILLED SYRINGE IVPUSH ONE ×2 (09:46→10:30)
[2023-05-14] MEDS: POLYETHYLENE GLYCOL (HEALTHYLAX) 3350 17 GM PACKET PO SCH ×3 (11:08→21:08)
[2023-05-14] MEDS: FOLIC ACID 1 MG TABLET (FP) PO SCH ×2 (11:08→11:55)
[2023-05-14] MEDS: LOSARTAN POTASSIUM 50 MG TABLET PO SCH ×2 (11:08→11:55)
[2023-05-14] MEDS: NICOTINE 14 MG/24 HOURS TOPICAL PATCH TD SCH (11:09)
[2023-05-14] MEDS: FAMOTIDINE 20 MG TABLET PO SCH ×2 (11:09→11:55)
[2023-05-14] MEDS: amLODIPine BESYLATE 5 MG TABLET (FP) PO SCH ×2 (11:09→11:55)
[2023-05-14] MEDS: SENNOSIDES 8.6MG TABLET (FP) PO SCH ×3 (11:09→21:08)
[2023-05-14] MEDS: THIAMINE HCL 100 MG TABLET (FP) PO SCH ×2 (11:10→11:55)
[2023-05-14 16:35] LABS: HEMATOCRIT 36.9 % (32.4-45.2); HEMOGLOBIN 12.2 GM/dL (10.7-15.3); MCH 28.4 pg (25.7-33.7); MCHC 33.2 g/dl (32.0-36.0); MEAN CELL VOLUME 85.6 fl (80-96); MEAN PLT VOLUME 8.3 fl (7.5-11.1); PLATELET COUNT 324 10^3/uL (134-434); RBC 4.31 M/mm3 (3.60-5.2); RDW 15.3 % (11.6-15.6); WHITE BLOOD COUNT 4.8 K/mm3 (4.0-10.0)
[2023-05-14 17:10] LABS: BLOOD UREA NITROGEN 57.6 mg/dL (7-18); CALCIUM 9.4 mg/dL (8.5-10.1); MAGNESIUM 3.3 mg/dL (1.8-2.4)
[2023-05-14 17:14] LABS: CREATININE 1.8 mg/dL (0.55-1.3)
[2023-05-14] MEDS: MELATONIN 5 MG TABLETS PO PRN (21:08)
[2023-05-14] MEDS: LIDOCAINE PATCH REMOVAL MC SCH (22:20)
[2023-05-14] MEDS: QUEtiapine FUMARATE 100 MG TABLET (FP) PO PRN (22:20)
[2023-05-15] MEDS: HEPARIN NA (PORCINE) 5,000 UNITS/ML 1ML VIAL SQ SCH ×3 (06:09→21:22)
[2023-05-15 08:50] LABS: HEMATOCRIT 36.9 % (32.4-45.2); HEMOGLOBIN 11.9 GM/dL (10.7-15.3); MCH 28.3 pg (25.7-33.7); MCHC 32.2 g/dl (32.0-36.0); MEAN CELL VOLUME 87.7 fl (80-96); MEAN PLT VOLUME 9.2 fl (7.5-11.1); PLATELET COUNT 262 10^3/uL (134-434); RBC 4.21 M/mm3 (3.60-5.2); RDW 15.1 % (11.6-15.6); WHITE BLOOD COUNT 3.6 K/mm3 (4.0-10.0)
[2023-05-15 09:04] LABS: POTASSIUM 4.6 mmol/L (3.5-5.1)
[2023-05-15 09:11] LABS: CALCIUM 9.2 mg/dL (8.5-10.1)
[2023-05-15 09:12] LABS: ALBUMIN 3.5 g/dl (3.4-5.0)
[2023-05-15 09:15] LABS: BLOOD UREA NITROGEN 54.1 mg/dL (7-18); CREATININE 1.7 mg/dL (0.55-1.3); MAGNESIUM 3.2 mg/dL (1.8-2.4); PHOSPHOROUS 3.8 mg/dL (2.5-4.9)
[2023-05-15 09:16] LABS: BILIRUBIN,TOTAL 0.4 mg/dL (0.2-1)
[2023-05-15] MEDS: FOLIC ACID 1 MG TABLET (FP) PO SCH (09:25)
[2023-05-15] MEDS: LOSARTAN POTASSIUM 25 MG TABLET PO SCH (09:26)
[2023-05-15] MEDS: FAMOTIDINE 20 MG TABLET PO SCH (09:26)
[2023-05-15] MEDS: NICOTINE 14 MG/24 HOURS TOPICAL PATCH TD SCH (09:26)
[2023-05-15] MEDS: SENNOSIDES 8.6MG TABLET (FP) PO SCH ×2 (09:26→21:24)
[2023-05-15] MEDS: amLODIPine BESYLATE 5 MG TABLET (FP) PO SCH (09:26)
[2023-05-15] MEDS: POLYETHYLENE GLYCOL (HEALTHYLAX) 3350 17 GM PACKET PO SCH ×2 (09:26→21:22)
[2023-05-15] MEDS: THIAMINE HCL 100 MG TABLET (FP) PO SCH (09:26)
[2023-05-15] MEDS: ASPIRIN COATED 81 MG TABLET.EC PO SCH (09:27)
[2023-05-15] MEDS: MELATONIN 5 MG TABLETS PO PRN (21:23)
[2023-05-15] MEDS: QUEtiapine FUMARATE 100 MG TABLET (FP) PO PRN (21:23)
[2023-05-15] MEDS: LIDOCAINE PATCH REMOVAL MC SCH (21:24)
[2023-05-15] MEDS ORDERED: ATORVASTATIN CA 20 MG TABLET (FP) PO SCH (22:00)
[2023-05-16] MEDS: hydrOXYzine PAMOATE 25 MG CAPSULE (FP) PO PRN (01:07)
[2023-05-16] MEDS: HEPARIN NA (PORCINE) 5,000 UNITS/ML 1ML VIAL SQ SCH ×2 (07:06→13:55)
[2023-05-16] MEDS ORDERED: amLODIPine BESYLATE 10 MG TABLET (FP) PO SCH (09:55)
[2023-05-16] MEDS ORDERED: CARVEDILOL 6.25 MG TABLET (FP) PO SCH (10:00)
[2023-05-16 10:28] VITALS: RESP 18; TEMP 98.2
[2023-05-16] MEDS: FOLIC ACID 1 MG TABLET (FP) PO SCH (10:28)
[2023-05-16] MEDS: THIAMINE HCL 100 MG TABLET (FP) PO SCH (10:28)
[2023-05-16] MEDS: ASPIRIN COATED 81 MG TABLET.EC PO SCH (10:28)
[2023-05-16] MEDS: FAMOTIDINE 20 MG TABLET PO SCH (10:28)
[2023-05-16] MEDS: LOSARTAN POTASSIUM 25 MG TABLET PO SCH (10:28)
[2023-05-16] MEDS: NICOTINE 14 MG/24 HOURS TOPICAL PATCH TD SCH (10:29)
[2023-05-16] MEDS: POLYETHYLENE GLYCOL (HEALTHYLAX) 3350 17 GM PACKET PO SCH (10:29)
[2023-05-16] MEDS: SENNOSIDES 8.6MG TABLET (FP) PO SCH (10:29)
[2023-05-16 15:44] VITALS: BP 114/70; PULSE 74
== END 2023-05-16 16:21 | disposition home or self-care (01) ==
LOC: JER 02:10 → JERBED 06:52 → UNDOADMOB 06:52 → INTOOBSV 10:25 → OBSVTOIN 10:25 → JERBED 11:26 → J4W 15:09
PROVIDERS: ADMIT Internal Medicine; ATTEND Internal Medicine
PROC: 3E023GC Introduction of Other Therapeutic Substance into Muscle, Percutaneous Approach (ICD-10-PCS; principal; 2023-05-10)
PROC: 3E033NZ Introduction of Analgesics, Hypnotics, Sedatives into Peripheral Vein, Percutaneous Approach (ICD-10-PCS; 2023-05-10)
PROC: 3E0337Z Introduction of Electrolytic and Water Balance Substance into Peripheral Vein, Percutaneous Approach (ICD-10-PCS; 2023-05-10)
PROC: 3E033GC Introduction of Other Therapeutic Substance into Peripheral Vein, Percutaneous Approach (ICD-10-PCS; 2023-05-10)
DX: F19.10 Other psychoactive substance abuse, uncomplicated (principal); N17.9 Acute kidney failure, unspecified; J45.909 Unspecified asthma, uncomplicated; F31.9 Bipolar disorder, unspecified; W18.39XA Other fall on same level, initial encounter; Y93.89 Activity, other specified; Y92.89 Other specified places as the place of occurrence of the external cause; R10.9 Unspecified abdominal pain; K59.00 Constipation, unspecified; R11.2 Nausea with vomiting, unspecified; I25.2 Old myocardial infarction; R94.39 Abnormal result of other cardiovascular function study; N18.9 Chronic kidney disease, unspecified; F17.200 Nicotine dependence, unspecified, uncomplicated
CPT/HCPCS: 36415; 72125-TC; 72131-TC; 72170-TC-FY; 73070-TC-LT-FY; 73070-TC-RT-FY; 73521-TC-FY; 73562-TC-RT-FY; 74177-TC; 76775-TC; 78452-TC; 80048; 80053; 80061; 80307; 81003; 82436; 82550; 82570; 83036; 83690; 83735; 84100; 84133; 84300; 84484; 85025; 85027; 87086; 93005; 93010; 93017; 93306-TC; 96361; 96372; 96374; 96375; 97116-GP; 97162-GP; 99285-25; A9502; G0378; J1644; J2785; Q9967

== ENCOUNTER 2024-03-18 18:23 | Inpatient (IN) | payer OTHER ==
[2024-03-18 19:58] VITALS: BMI 21.9
[2024-03-18] MEDS ORDERED: cloNIDine HCL 0.1 MG TABLET ONE (20:12)
[2024-03-18] MEDS: cloNIDine HCL 0.1 MG TABLET PO ONE (20:15)
[2024-03-18] MEDS ORDERED: cloNIDine HCL 0.1 MG TABLET PO PRN (20:49)
[2024-03-18] MEDS ORDERED: NALOXONE HCL (KLOXXADO) 8 MG SPRAY NS PRN (21:10)
[2024-03-18] MEDS ORDERED: BENZOCAINE/MENTHOL (CHLORASEPTIC ) LOZENGE MM PRN (21:10)
[2024-03-18] MEDS ORDERED: MAGNESIUM HYDROX 2400MG/30ML ORAL SUSPENSION 30 ML CUP PO PRN (21:10)
[2024-03-18] MEDS ORDERED: IBUPROFEN 400 MG TABLET (FP) PO PRN (21:10)
[2024-03-18] MEDS ORDERED: MAG HYDROX/AL HYDROX/SIMETH 30 ML UNIT-DOSE CUP PO PRN (21:10)
[2024-03-18] MEDS ORDERED: guaiFENesin 600 MG TABLET.ER (FP) PO PRN (21:10)
[2024-03-18] MEDS ORDERED: NALOXONE HCL 0.4 MG/ML VIAL IM PRN (21:10)
[2024-03-18] MEDS ORDERED: DICYCLOMINE HCL 10 MG CAPSULE PO PRN (21:10)
[2024-03-18] MEDS ORDERED: BISMUTH SUBSALICYLATE 524 MG/30 ML PO PRN (21:10)
[2024-03-18] MEDS ORDERED: P-EPHED 60MG/TRIPROLIDI 2.5MG TABLET PO PRN (21:10)
[2024-03-18] MEDS ORDERED: NICOTINE POLACRILEX 2 MG LOZENGE BC PRN (21:10)
[2024-03-18] MEDS ORDERED: POLYETHYLENE GLYCOL (HEALTHYLAX) 3350 17 GM PACKET PO PRN (21:10)
[2024-03-18] MEDS ORDERED: BENZONATATE 200 MG CAPSULE PO PRN (21:10)
[2024-03-18] MEDS ORDERED: NICOTINE POLACRILEX 2 MG GUM BUC PRN (21:10)
[2024-03-18] MEDS ORDERED: methaDONE HCL 10 MG TABLET (FOR DETOX USE ONLY) ONE (21:36)
[2024-03-18] MEDS: methaDONE HCL 10 MG TABLET (FOR DETOX USE ONLY) PO ONE (21:39)
[2024-03-18] MEDS: amLODIPine BESYLATE 10 MG TABLET (FP) PO SCH (23:40)
[2024-03-18] MEDS: MELATONIN 5 MG TABLETS PO SCH (23:40)
[2024-03-18] MEDS: ASPIRIN COATED 81 MG TABLET.EC PO SCH (23:40)
[2024-03-18] MEDS: THIAMINE 100 MG TABLET PO SCH (23:40)
[2024-03-18] MEDS: ATORVASTATIN CA 40 MG TABLET (FP) PO SCH (23:41)
[2024-03-18] MEDS: METHOCARBAMOL 500 MG TABLET PO PRN (23:41)
[2024-03-18] MEDS: IBUPROFEN 600 MG TABLET (FP) PO PRN (23:41)
[2024-03-19] MEDS: PRENATAL VITAMINS W/ FOLIC ACID TABLET (FP) PO SCH (09:21)
[2024-03-19 10:25] LABS: HEMATOCRIT 33.6 % (32.4-45.2); HEMOGLOBIN 10.8 GM/dL (10.7-15.3); MCH 27.8 pg (25.7-33.7); MCHC 32.1 g/dl (32.0-36.0); MEAN CELL VOLUME 86.5 fl (80-96); MEAN PLT VOLUME 9.1 fl (7.5-11.1); PLATELET COUNT 257 10^3/uL (134-434); RBC 3.89 M/mm3 (3.60-5.2); RDW 14.7 % (11.6-15.6); WHITE BLOOD COUNT 4.9 K/mm3 (4.0-10.0)
[2024-03-19 10:30] LABS: CHLORIDE 108 mmol/L (98-107); SODIUM 139 mmol/L (136-145)
[2024-03-19 10:41] LABS: ANION GAP 4 mmol/L (4-13); BLOOD UREA NITROGEN 25.6 mg/dL (7-18); CALCIUM 9.3 mg/dL (8.5-10.1); CO2 28 mmol/L (21-32)
[2024-03-19 10:42] LABS: ALBUMIN 3.4 g/dl (3.4-5.0); GLUCOSE,RANDOM 75 mg/dL (74-106)
[2024-03-19 10:44] LABS: CREATININE 1.7 mg/dL (0.55-1.3); SGPT/ALT 13 U/L (13-61)
[2024-03-19 10:45] LABS: SGOT/AST 16 U/L (15-37)
[2024-03-19 10:46] LABS: BILIRUBIN,TOTAL 0.5 mg/dL (0.2-1); TOT PROT 6.7 g/dl (6.4-8.2)
[2024-03-19 10:47] LABS: ALK PHOS 71 U/L (45-117)
[2024-03-19] MEDS: LOPERAMIDE HCL 2 MG CAPSULE PO PRN (19:09)
[2024-03-20] MEDS: ACETAMINOPHEN 325 MG TABLET (FP) PO PRN (05:14)
[2024-03-20] MEDS: methaDONE HCL 10 MG TABLET (FOR DETOX USE ONLY) PO ONE (09:07)
[2024-03-20] MEDS: NICOTINE 14 MG/24 HOURS TOPICAL PATCH TD SCH (12:32)
[2024-03-20] MEDS: NAPROXEN 500 MG TABLET PO ONE (15:41)
[2024-03-20] MEDS: METHYL SALICYLATE/MENTHOL OINT 30 GM TUBE TP SCH (15:52)
[2024-03-21] MEDS: CHLORTHALIDONE 25 MG TABLET PO SCH (17:53)
[2024-03-22 06:24] VITALS: RESP 16
[2024-03-22] MEDS: cloNIDine HCL 0.1 MG TABLET PO ONE (13:14)
[2024-03-22 13:17] VITALS: PULSE 86; TEMP 97.7
[2024-03-22 13:18] VITALS: BP 204/89
== END 2024-03-22 13:33 | disposition home or self-care (01) | DRG 773 ==
LOC: YASAS 18:23 → Y3N 22:37
PROVIDERS: ADMIT Allergy & Immunology; ATTEND Surgery
PROC: HZ2ZZZZ Detoxification Services for Substance Abuse Treatment (ICD-10-PCS; principal; 2024-03-18)
DX: F11.23 Opioid dependence with withdrawal (principal); F14.20 Cocaine dependence, uncomplicated; F17.210 Nicotine dependence, cigarettes, uncomplicated; F31.9 Bipolar disorder, unspecified; F19.24 Other psychoactive substance dependence with psychoactive substance-induced mood disorder; G47.00 Insomnia, unspecified; R26.89 Other abnormalities of gait and mobility; Z99.89 Dependence on other enabling machines and devices
CPT/HCPCS: 36415; 80053; 80305; 80307; 85027; 86780; 93005; 93010

== ENCOUNTER 2025-04-23 11:41 | Inpatient (IN) | payer OTHER ==
[2025-04-23 12:37] VITALS: BMI 24.2
[2025-04-23] MEDS ORDERED: hydrOXYzine PAMOATE 25 MG CAPSULE (FP) PO PRN (12:37)
[2025-04-23] MEDS ORDERED: IBUPROFEN 400 MG TABLET (FP) PO PRN (12:37)
[2025-04-23] MEDS ORDERED: BENZOCAINE/MENTHOL (CHLORASEPTIC ) LOZENGE MM PRN (12:37)
[2025-04-23] MEDS ORDERED: guaiFENesin 600 MG TABLET.ER (FP) PO PRN (12:37)
[2025-04-23] MEDS ORDERED: MAGNESIUM HYDROX 2400MG/30ML ORAL SUSPENSION 30 ML CUP PO PRN (12:37)
[2025-04-23] MEDS ORDERED: POLYETHYLENE GLYCOL (HEALTHYLAX) 3350 17 GM PACKET PO PRN (12:37)
[2025-04-23] MEDS ORDERED: LOPERAMIDE HCL 2 MG CAPSULE PO PRN (12:37)
[2025-04-23] MEDS ORDERED: BENZONATATE 200 MG CAPSULE PO PRN (12:37)
[2025-04-23] MEDS ORDERED: NALOXONE (NARCAN) HCL 4 MG/0.1 ML SPRAY NS PRN (12:37)
[2025-04-23] MEDS: PRENATAL VITAMINS W/ FOLIC ACID TABLET (FP) PO SCH (14:18)
[2025-04-23] MEDS ORDERED: TUBERCULIN PPD 5 TU/0.1ML VIAL ID ONE ×2 (15:54→16:39)
[2025-04-23] MEDS: ACAMPROSATE CALCIUM 333 MG TABLET.DR PO SCH (15:54)
[2025-04-23] MEDS: TUBERCULIN PPD 5 TU/0.1ML VIAL ID ONE (15:56)
[2025-04-23] MEDS: ACETAMINOPHEN 325 MG TABLET (FP) PO SCH (16:29)
[2025-04-23] MEDS: MELATONIN 5 MG TABLETS PO SCH (21:06)
[2025-04-23] MEDS: THIAMINE 100 MG TABLET PO SCH (21:06)
[2025-04-23] MEDS: IBUPROFEN 600 MG TABLET (FP) PO PRN (21:07)
[2025-04-24] MEDS: MAG HYDROX/AL HYDROX/SIMETH 30 ML UNIT-DOSE CUP PO PRN (06:25)
[2025-04-24] MEDS ORDERED: ONDANSETRON *ODT* 4 MG TABLET SL PRN (09:31)
[2025-04-24] MEDS ORDERED: DICYCLOMINE HCL 10 MG CAPSULE PO PRN (09:31)
[2025-04-24] MEDS ORDERED: BISMUTH SUBSALICYLATE 262 MG/15 ML BTL PO PRN (09:31)
[2025-04-24] MEDS: LISINOPRIL 10 MG TABLET PO SCH (09:48)
[2025-04-24] MEDS: amLODIPine BESYLATE 10 MG TABLET (FP) PO SCH (09:48)
[2025-04-24] MEDS: BUPRENORPHINE HCL 150 MCG, BUPRENORPHINE HCL 75 MCG BC ONE (10:52)
[2025-04-24] MEDS: VARENICLINE TARTRATE 0.5 MG TAB PO SCH (11:06)
[2025-04-24] MEDS: BUPRENORPHINE HCL 150 MCG, BUPRENORPHINE HCL 75 MCG BC PRN (21:07)
[2025-04-24] MEDS: MELATONIN 5 MG TABLETS PO SCH (21:07)
[2025-04-24] MEDS: QUEtiapine FUMARATE 100 MG TABLET (FP) PO SCH (21:08)
[2025-04-25] MEDS ORDERED: BUPRENORPHINE HCL 150 MCG, BUPRENORPHINE HCL 75 MCG BC PRN
[2025-04-25] MEDS: BUPRENORPHINE HCL 150 MCG, BUPRENORPHINE HCL 75 MCG BC SCH (06:43)
[2025-04-25] MEDS: BACLOFEN 10 MG TABLET (FP) PO PRN (09:51)
[2025-04-25 13:40] LABS: MCHC 31.1 g/dl (32.2-35.5); MEAN CELL VOLUME 89.6 fl (79.4-94.8); MEAN PLT VOLUME 10.7 fl (9.4-12.3); RDW 15.1 % (12.4-16.4)
[2025-04-25 13:47] LABS: GLUCOSE,RANDOM 101.0 mg/dL (74-106)
[2025-04-25 13:48] LABS: CO2 28.0 mmol/L (21-32)
[2025-04-25 13:50] LABS: CREATININE 1.4 mg/dL (0.55-1.3); SGPT/ALT 17.0 U/L (13-61)
[2025-04-25 13:51] LABS: SGOT/AST 16.0 U/L (15-37)
[2025-04-25 13:52] LABS: TOT PROT 5.6 g/dl (6.4-8.2)
[2025-04-25 13:54] LABS: ALK PHOS 72.0 U/L (45-117)
[2025-04-25] MEDS: POTASSIUM CHLORIDE TABS 20 MEQ TABLET.ER (FP) PO ONE (15:39)
[2025-04-25] MEDS: SODIUM POLYSTYRENE SULFONATE 15 GM/60 ML BOTTLE PO ONE (16:54)
[2025-04-26] MEDS: BUPRENORPHINE HCL 450 MCG FILM BC SCH (06:32)
[2025-04-26] MEDS: ACETAMINOPHEN 325 MG TABLET (FP) PO PRN (10:01)
[2025-04-27] MEDS: BUPRENORPHINE/NALOXONE 4 MG/1 MG FILM PACKET SL SCH (06:27)
[2025-04-27] MEDS: LIDOCAINE 5% TOPICAL PATCH TP SCH (13:12)
[2025-04-27 13:35] LABS: ALK PHOS 74.0 U/L (45-117); CO2 28.0 mmol/L (21-32); CREATININE 1.6 mg/dL (0.55-1.3); GLUCOSE,RANDOM 95.0 mg/dL (74-106); SGOT/AST 17.0 U/L (15-37); SGPT/ALT 19.0 U/L (13-61); TOT PROT 6.2 g/dl (6.4-8.2)
[2025-04-27] MEDS: LIDOCAINE PATCH REMOVAL MC SCH (21:08)
[2025-04-28] MEDS: BUPRENORPHINE/NALOXONE 8 MG/2 MG FILM PACKET SL SCH (06:55)
[2025-04-28] MEDS ORDERED: BUPRENORPHINE/NALOXONE 8 MG/2 MG FILM PACKET SL SCH (10:00)
[2025-04-28] MEDS: VARENICLINE TARTRATE 0.5 MG TAB PO SCH (10:20)
[2025-04-29] MEDS: SODIUM ZIRCONIUM CYCLOSILICATE (LOKELMA) 5 GM PACKET PO SCH (11:15)
[2025-04-30] MEDS: amLODIPine BESYLATE 10 MG TABLET (FP) PO SCH (09:49)
[2025-05-01] MEDS: BACLOFEN 10 MG TABLET (FP) PO SCH (21:29)
[2025-05-02] MEDS: VARENICLINE TARTRATE 1 MG TAB PO SCH (09:56)
[2025-05-02] MEDS: LIDOCAINE 5% TOPICAL PATCH TP SCH (09:57)
[2025-05-05] MEDS: MELATONIN 5 MG TABLETS PO PRN (21:16)
[2025-05-06 22:30] VITALS: BP 133/71; PULSE 101; RESP 18; TEMP 98
== END 2025-05-07 02:10 | disposition short-term general hospital (02) | DRG 772 ==
LOC: YASAS 11:41 → Y5N 14:10
PROVIDERS: ADMIT Allergy & Immunology; ATTEND Psychiatry & Neurology Pain Medicine
PROC: HZ42ZZZ Group Counseling for Substance Abuse Treatment, Cognitive-Behavioral (ICD-10-PCS; principal; 2025-04-23)
DX: F11.20 Opioid dependence, uncomplicated (principal); F14.20 Cocaine dependence, uncomplicated; F10.20 Alcohol dependence, uncomplicated; F17.210 Nicotine dependence, cigarettes, uncomplicated; F31.9 Bipolar disorder, unspecified; E87.5 Hyperkalemia; I12.9 Hypertensive chronic kidney disease with stage 1 through stage 4 chronic kidney disease, or unspecified chronic kidney disease; N18.9 Chronic kidney disease, unspecified; J45.909 Unspecified asthma, uncomplicated; M17.0 Bilateral primary osteoarthritis of knee; M54.50 Low back pain, unspecified; G89.29 Other chronic pain; R77.8 Other specified abnormalities of plasma proteins; R60.0 Localized edema; R29.6 Repeated falls; R35.0 Frequency of micturition; S09.90XA Unspecified injury of head, initial encounter; W19.XXXA Unspecified fall, initial encounter; Y93.89 Activity, other specified; Y92.230 Patient room in hospital as the place of occurrence of the external cause; Z99.89 Dependence on other enabling machines and devices
CPT/HCPCS: 36415; 80053; 80305; 80307; 83036; 84132; 85027; 86780; 87811; 93005; 93010; J0475

== ENCOUNTER 2025-05-06 18:32 | Observation (INO) | payer OTHER ==
[2025-05-06 18:59] VITALS: BMI 25.8
[2025-05-06 20:06] LABS: ABSOLUTE IMMATURE GRANULOCYTES 0.01 x10^3/uL (0.0-0.031); BASOPHILS # 0.03 x10^3/uL (0.01-0.08); EOSINOPHIL % 3.8 % (0.7-5.8); EOSINOPHILS # 0.20 x10^3/uL (0.04-0.36); MCHC 30.7 g/dl (32.2-35.5); MEAN CELL VOLUME 91.0 fl (79.4-94.8); MEAN PLT VOLUME 10.2 fl (9.4-12.3); MONOCYTE # 0.48 x10^3/uL (0.24-0.86); MONOCYTE % 9.0 % (4.7-12.5); RDW 14.8 % (12.4-16.4)
[2025-05-06 20:16] LABS: INR 0.95 (0.83-1.09); PROTHROMBIN TIME (PATIENT) 10.4 SEC (9.7-13.0)
[2025-05-06 20:17] LABS: GLUCOSE,RANDOM 105.0 mg/dL (74-106)
[2025-05-06 20:18] LABS: CO2 27.0 mmol/L (21-32)
[2025-05-06 20:19] LABS: ACTIVATED PTT 27.5 SECONDS (25.2-36.5)
[2025-05-06 20:21] LABS: CREATININE 1.2 mg/dL (0.55-1.3); SGOT/AST 22.0 U/L (15-37); SGPT/ALT 17.0 U/L (13-61)
[2025-05-06 20:22] LABS: TOT PROT 6.0 g/dl (6.4-8.2)
[2025-05-06 20:24] LABS: ALK PHOS 79.0 U/L (45-117)
[2025-05-06 21:10] LABS: HCV DIAGNOSTIC IN-HOUSE W/RFLX NON-REACTIVE (NONREACTIVE)
[2025-05-06 21:11] LABS: HIV INTERPRETATION NEGATIVE (NEGATIVE)
[2025-05-06 23:56] LABS: N-TERMINAL BNP 485.4 pg/ml (5-125)
[2025-05-07 00:40] LABS: EPI CELLS 15 /uL (0-25.1); HYALINE CASTS 0 /uL (0-3.1); URINE APPEARANCE CLEAR; URINE BACTERIA 480 /uL (0-1359); URINE BILIRUBIN NEGATIVE (NEGATIVE); URINE COLOR YELLOW; URINE GLUCOSE (UA) NEGATIVE (NEGATIVE); URINE KETONE NEGATIVE (NEGATIVE); URINE LEUK ESTERASE 2+ (NEGATIVE); URINE NITRITE NEGATIVE (NEGATIVE); URINE PROTEIN NEGATIVE (NEGATIVE); URINE RBC 10 /uL (0-23.9); URINE UROBILINOGEN 0.2 mg/dL (0.2-1.0); URINE WBC 61 /uL (0-25.8)
[2025-05-07 03:29] LABS: COCAINE, UR NEGATIVE (NEGATIVE); OPIATES, URI NEGATIVE (NEGATIVE); PHENCYCLIDINE,URINE NEGATIVE (NEGATIVE); URINE AMPHETAMINES NEGATIVE (NEGATIVE); URINE BARBITURATES NEGATIVE (NEGATIVE); URINE BENZODIAZEPINES NEGATIVE (NEGATIVE)
[2025-05-07 03:30] LABS: METHADONE, UR NEGATIVE (NEGATIVE)
[2025-05-07] MEDS ORDERED: ACETAMINOPHEN 325 MG TABLET (FP) ONE (03:57)
[2025-05-07] MEDS ORDERED: MELATONIN 5 MG TABLETS ONE (03:57)
[2025-05-07] MEDS: ACETAMINOPHEN 325 MG TABLET (FP) PO SCH (03:59)
[2025-05-07] MEDS: MELATONIN 5 MG TABLETS PO PRN (04:00)
[2025-05-07] MEDS: IRON SUCROSE INJECTION 200 MG in SODIUM CHLORIDE 100 ML IVPB ONE (04:40)
[2025-05-07 06:57] LABS: IRON SERUM 38 ug/dL (50-175)
[2025-05-07] MEDS ORDERED: CHLORTHALIDONE 25 MG TABLET PO SCH (10:00)
[2025-05-07] MEDS ORDERED: ASPIRIN COATED 81 MG TABLET.EC PO SCH (10:00)
[2025-05-07] MEDS ORDERED: IRON SUCROSE INJECTION 200 MG in SODIUM CHLORIDE 100 ML IVPB ONE (10:00)
[2025-05-07] MEDS: ENOXAPARIN NA (PORCINE) 40 MG/0.4 ML DISP.SYRIN SQ SCH (12:24)
[2025-05-07] MEDS: LISINOPRIL 10 MG TABLET PO SCH (12:25)
[2025-05-07] MEDS: PANTOPRAZOLE 40 MG TABLET PO SCH (12:26)
[2025-05-07] MEDS: FOLIC ACID 1 MG TABLET (FP) PO SCH (12:26)
[2025-05-07] MEDS: MULTIVITAMINS (DAILY MVI) TABLET (FP) PO SCH (12:26)
[2025-05-07] MEDS: amLODIPine BESYLATE 10 MG TABLET (FP) PO SCH (12:26)
[2025-05-07] MEDS: BUPRENORPHINE/NALOXONE 8 MG/2 MG FILM PACKET SL SCH (21:25)
[2025-05-07] MEDS: ATORVASTATIN CA 40 MG TABLET (FP) PO SCH (21:26)
[2025-05-08 09:33] LABS: MCHC 30.0 g/dl (32.2-35.5); MEAN CELL VOLUME 93.1 fl (79.4-94.8); MEAN PLT VOLUME 10.3 fl (9.4-12.3); RDW 14.9 % (12.4-16.4)
[2025-05-08 10:31] LABS: CO2 28.0 mmol/L (21-32)
[2025-05-08 10:32] LABS: GLUCOSE,RANDOM 87.0 mg/dL (74-106)
[2025-05-08 10:33] LABS: SGOT/AST 22.0 U/L (15-37); SGPT/ALT 18.0 U/L (13-61)
[2025-05-08 10:34] LABS: CREATININE 1.6 mg/dL (0.55-1.3)
[2025-05-08 10:36] LABS: TOT PROT 6.0 g/dl (6.4-8.2)
[2025-05-08 10:37] LABS: ALK PHOS 81.0 U/L (45-117)
[2025-05-08] MEDS: SODIUM CHLORIDE 1,000 ML IV SCH ×2 (11:44→21:29)
[2025-05-08] MEDS: ACETAMINOPHEN 1000 MG/100 ML BAG IVPB ONE (12:43)
[2025-05-08] MEDS ORDERED: ACETAMINOPHEN 1000 MG/100 ML BAG IVPB PRN (16:59)
[2025-05-09] MEDS: FAMOTIDINE 20 MG TABLET PO SCH (09:39)
[2025-05-09 09:50] LABS: MCHC 30.0 g/dl (32.2-35.5); MEAN CELL VOLUME 92.2 fl (79.4-94.8); MEAN PLT VOLUME 10.5 fl (9.4-12.3); RDW 15.0 % (12.4-16.4)
[2025-05-09 10:34] LABS: CO2 27.0 mmol/L (21-32)
[2025-05-09 10:35] LABS: GLUCOSE,RANDOM 85.0 mg/dL (74-106)
[2025-05-09 10:37] LABS: CREATININE 1.3 mg/dL (0.55-1.3)
[2025-05-09 11:39] LABS: EOSINOPHILS # 0.28 x10^3/uL (0.04-0.36); MONOCYTE # 0.28 x10^3/uL (0.24-0.86)
[2025-05-09 16:55] LABS: HEPATITIS B SURF AG NON-MATERN NON-REACTIVE (NONREACTIVE)
[2025-05-11 08:51] LABS: MCHC 29.8 g/dl (32.2-35.5); MEAN CELL VOLUME 91.6 fl (79.4-94.8); MEAN PLT VOLUME 10.1 fl (9.4-12.3); RDW 15.1 % (12.4-16.4)
[2025-05-11 09:02] LABS: CO2 25.0 mmol/L (21-32); GLUCOSE,RANDOM 101.0 mg/dL (74-106)
[2025-05-11 09:05] LABS: CREATININE 1.4 mg/dL (0.55-1.3); SGOT/AST 29.0 U/L (15-37); SGPT/ALT 28.0 U/L (13-61)
[2025-05-11 09:06] LABS: TOT PROT 5.6 g/dl (6.4-8.2)
[2025-05-11 09:08] LABS: ALK PHOS 73.0 U/L (45-117)
[2025-05-11 14:06] LABS: SPECKLED PATTERN 1:80 (.)
[2025-05-11 16:19] VITALS: RESP 18
[2025-05-11] MEDS: SODIUM ZIRCONIUM CYCLOSILICATE (LOKELMA) 5 GM PACKET PO SCH (18:02)
[2025-05-11 21:54] LABS: ABSOLUTE IMMATURE GRANULOCYTES 0.02 x10^3/uL (0.0-0.031); BASOPHILS # 0.03 x10^3/uL (0.01-0.08); EOSINOPHIL % 4.6 % (0.7-5.8); EOSINOPHILS # 0.21 x10^3/uL (0.04-0.36); MCHC 30.7 g/dl (32.2-35.5); MEAN CELL VOLUME 91.9 fl (79.4-94.8); MEAN PLT VOLUME 10.1 fl (9.4-12.3); MONOCYTE # 0.41 x10^3/uL (0.24-0.86); MONOCYTE % 9.0 % (4.7-12.5); RDW 15.5 % (12.4-16.4)
[2025-05-11] MEDS: ATORVASTATIN CA 40 MG TABLET (FP) PO SCH (22:14)
[2025-05-11] MEDS: POLYETHYLENE GLYCOL (HEALTHYLAX) 3350 17 GM PACKET PO SCH (22:14)
[2025-05-12 08:58] LABS: ABSOLUTE IMMATURE GRANULOCYTES 0.02 x10^3/uL (0.0-0.031); BASOPHILS # 0.03 x10^3/uL (0.01-0.08); EOSINOPHIL % 5.5 % (0.7-5.8); EOSINOPHILS # 0.26 x10^3/uL (0.04-0.36); MCHC 29.7 g/dl (32.2-35.5); MEAN CELL VOLUME 92.5 fl (79.4-94.8); MEAN PLT VOLUME 9.8 fl (9.4-12.3); MONOCYTE # 0.43 x10^3/uL (0.24-0.86); MONOCYTE % 9.1 % (4.7-12.5); RDW 15.5 % (12.4-16.4)
[2025-05-12 09:27] LABS: GLUCOSE,RANDOM 107.0 mg/dL (74-106)
[2025-05-12 09:30] LABS: CO2 23.0 mmol/L (21-32); CREATININE 1.4 mg/dL (0.55-1.3); SGOT/AST 41.0 U/L (15-37); SGPT/ALT 39.0 U/L (13-61)
[2025-05-12 09:32] LABS: TOT PROT 6.0 g/dl (6.4-8.2)
[2025-05-12 09:33] LABS: ALK PHOS 75.0 U/L (45-117)
[2025-05-12] MEDS: PANTOPRAZOLE SODIUM 40 MG VIAL IVPUSH SCH (10:18)
[2025-05-12] MEDS: PEG 3350/NA SULF BICARB CL/KCL 4000 ML SOLN.RECON PO ONE (13:48)
[2025-05-12] MEDS: BISACODYL 5 MG TABLET.DR (FP) PO ONE (21:19)
[2025-05-13 09:00] LABS: MCHC 30.6 g/dl (32.2-35.5); MEAN CELL VOLUME 92.5 fl (79.4-94.8); MEAN PLT VOLUME 10.1 fl (9.4-12.3); RDW 15.4 % (12.4-16.4)
[2025-05-13 09:02] LABS: INR 1.01 (0.83-1.09); PROTHROMBIN TIME (PATIENT) 11.1 SEC (9.7-13.0)
[2025-05-13 10:04] LABS: CO2 24.0 mmol/L (21-32); GLUCOSE,RANDOM 95.0 mg/dL (74-106)
[2025-05-13 10:07] LABS: CREATININE 1.2 mg/dL (0.55-1.3); SGOT/AST 42.0 U/L (15-37); SGPT/ALT 43.0 U/L (13-61)
[2025-05-13 10:08] LABS: TOT PROT 5.5 g/dl (6.4-8.2)
[2025-05-13 10:09] LABS: ALK PHOS 65.0 U/L (45-117)
[2025-05-13] MEDS ORDERED: ACETAMINOPHEN 1000 MG/100 ML BAG IVPB PRN (21:40)
[2025-05-14] MEDS: KETOROLAC TROMETHAMINE 15 MG/ML VIAL IVPUSH PRN (09:16)
[2025-05-14 13:22] VITALS: BP 135/72; PULSE 77; TEMP 98.2
== END 2025-05-14 11:07 | disposition home or self-care (01) ==
LOC: JER 18:32 → JERBED 23:55 → UNDOADMOB 23:55 → INTOOBSV 05-07 02:29 → OBSVTOIN 05-07 02:29 → J7W 05-07 09:08 → JERBED 05-07 09:08 → J7W 05-07 12:05 → J5S 05-07 12:05 → J7W 05-08 15:43 → J5S 05-08 15:43 → JERBED 05-08 15:43 → UNDODISOB 05-08 16:42
PROVIDERS: ADMIT Hospitalist; ATTEND Internal Medicine
PROC: 3E033NZ Introduction of Analgesics, Hypnotics, Sedatives into Peripheral Vein, Percutaneous Approach (ICD-10-PCS; principal; 2025-05-08)
PROC: 3E023GC Introduction of Other Therapeutic Substance into Muscle, Percutaneous Approach (ICD-10-PCS; 2025-05-08)
PROC: 3E0333Z Introduction of Anti-inflammatory into Peripheral Vein, Percutaneous Approach (ICD-10-PCS; 2025-05-08)
PROC: 3E033GC Introduction of Other Therapeutic Substance into Peripheral Vein, Percutaneous Approach (ICD-10-PCS; 2025-05-08)
PROC: 3E0337Z Introduction of Electrolytic and Water Balance Substance into Peripheral Vein, Percutaneous Approach (ICD-10-PCS; 2025-05-08)
DX: M79.604 Pain in right leg (principal); R29.6 Repeated falls; F11.90 Opioid use, unspecified, uncomplicated; F12.20 Cannabis dependence, uncomplicated; N17.9 Acute kidney failure, unspecified; R07.89 Other chest pain; M94.0 Chondrocostal junction syndrome [Tietze]; D64.9 Anemia, unspecified; R79.1 Abnormal coagulation profile; F31.9 Bipolar disorder, unspecified; J45.909 Unspecified asthma, uncomplicated; G89.29 Other chronic pain; I10 Essential (primary) hypertension; R77.8 Other specified abnormalities of plasma proteins; Z96.652 Presence of left artificial knee joint; F17.210 Nicotine dependence, cigarettes, uncomplicated; Z88.5 Allergy status to narcotic agent
CPT/HCPCS: 36415; 70450-TC; 71045-TC-FY; 71046-TC-FY; 72125-TC; 72170-TC-FY; 73560-TC-RT-FY; 73590-TC-RT-FY; 73610-TC-RT-FY; 73630-TC-RT-FY; 73700-TC-RT; 76775-TC; 80048; 80053; 80307; 81003; 82272; 82550; 83540; 83550; 83735; 83880; 84100; 84484; 85025; 85379; 85610; 85730; 86038; 86160; 86704; 86803; 87340; 87389; 93005; 93010; 93306-TC; 93971-TC; 96361; 96372; 96374; 96375; 97116-GP; 97162-GP; 99285-25; G0378